=== PATIENT | female | born 1960 | race Caucasian/White ===

== ENCOUNTER 2017-05-29 08:26 | Observation (INO) | payer MEDICARE, BC ==
[2017-05-29 08:27] VITALS: BMI 31.2
[2017-05-29 09:06] LABS: EOS # 0.1 K/uL (0.0-0.7); EOS % 2.2 % (0.0-4.0); LYMPH # 0.6 K/uL (1.0-4.3)
--- NOTE | 2017-05-29 09:06 | RAD ---
PROCEDURE: Right Foot Radiographs. HISTORY: ? osteo of 1st metatarsal COMPARISON: None. FINDINGS: BONES: . No fracture. JOINTS: Diffuse proximal and distal interphalangeal joint space narrowing. Mild 1st metatarsal phalangeal joint space narrowing with tiny medial 1st metatarsal head subcortical cyst. No maury erosion. No cortical destruction or periosteal reaction seen. SOFT TISSUES: Medial soft tissue mild hyperdensity and trace swelling without subcutaneous emphysema or subcutaneous lucencies suggested. OTHER FINDINGS: Os tibial externum -9 mm IMPRESSION: No periosteal reaction or cortical disruption to suggest osteomyelitis. Mild medial soft tissue hyperdensity without subcutaneous emphysema or lucency- first metatarsal-phalangeal joint level.
[2017-05-29 09:11] LABS: BASO % 0.3 % (0.0-2.0); HEMATOCRIT 35.3 % (34.0-47.0); LYMPH % 18.7 % (20.0-40.0); MEAN CELL VOLUME 89.3 fL (81.0-99.0); MEAN CORPUSCULAR HEMOGLOBIN 31.1 pg (27.0-31.0); MEAN CORPUSCULAR HGB CONC 34.8 g/dL (33.0-37.0); MEAN PLATELET VOLUME 8.6 fL (7.2-11.7); MONO # 0.4 K/uL (0.0-0.8); MONO % 11.9 % (0.0-10.0); RED CELL DISTRIBUTION WIDTH 15.3 % (11.5-14.5); WHITE BLOOD COUNT 3.1 K/uL (4.8-10.8)
[2017-05-29 09:13] LABS: CHLORIDE 103 mmol/L (98-107); SODIUM 138 mmol/L (132-148)
[2017-05-29 09:14] LABS: POTASSIUM 3.9 mmol/L (3.6-5.2)
--- NOTE | 2017-05-29 09:14 | C.PDOC ---
History Of Present Illness 57 y/o female, with PMHx of diabetes, is sent to ED by PMD for evaluation of acute osteomyelitis to the right foot. Patient was seen by reporter who spoke with PMD to send pt to ER for further evaluation. Pt notes taking Augmentin with mild improvement. No fever. Time Seen by Provider: 05/29/17 08:40 Chief Complaint (Nursing): Lower Extremity Problem/Injury History Per: Patient History/Exam Limitations: no limitations Onset/Duration Of Symptoms: Days Current Symptoms Are (Timing): Still Present Recent travel outside of the [place]: No Additional History Per: Patient Past Medical History Reviewed: Historical Data, Nursing Documentation, Vital Signs Vital Signs: Last Vital Signs Temp 98.4 F 05/29/17 16:00 Pulse 75 05/29/17 16:00 Resp 20 05/29/17 16:00 BP 142/76 05/29/17 16:00 Pulse Ox 95 05/29/17 16:00 - Medical History PMH: Anxiety, Depression, Diabetes Surgical History: Cholecystectomy - [facility] Procedures FOOT JOINT STRUCT DIVIS (07/31/14) NONEXCIS DEBRID OF WOUND, INFECT, OR BURN (03/09/14) OPEN REDUCT-INT FIX TOE (07/31/14) REPAIR OF HAMMER TOE (07/31/14) Family History: States: Unknown Family Hx - Social History Hx Tobacco Use: No Hx Alcohol Use: No Hx Substance Use: No - Immunization History Hx Tetanus Toxoid Vaccination: No Hx Influenza Vaccination: No Hx Pneumococcal Vaccination: No Review Of Systems Except As Marked, All Systems Reviewed And Found Negative. Constitutional: Negative for: Fever, Chills Musculoskeletal: Positive for: Foot Pain (right) Neurological: Negative for: Weakness, Numbness Physical Exam - Physical Exam Appears: Non-toxic, No Acute Distress Skin: Normal Color, Warm, Dry, No Rash Head: Atraumatic, Normacephalic Extremity: Normal ROM, No Deformity, Other (right foot is bandaged, clean and dry) Pulses: Left Dorsalis Pedis: Normal, Right Dorsalis Pedis: Normal Neurological/Psych: Oriented x3, Normal Speech, Normal Motor, Normal Sensation ED Course And Treatment - Laboratory Results Result Diagrams: 05/29/17 09:01 05/29/17 09:01 O2 Sat by Pulse Oximetry: 95 (on RA) Pulse Ox Interpretation: Normal Medical Decision Making Medical Decision Making: Plan: Blood work, blood culture, right foot x-ray, right lower extremity joint MRI Disposition - Disposition Disposition: HOSPITALIZED Disposition Time: 12:20 Condition: STABLE - Clinical Impression Clinical Impression: Osteomyelitis - Scribe Statement The provider has reviewed the documentation as recorded by the Alysaibizabela Ha All medical record entries made by the Alysaibizabela were at my direction and personally dictated by me. I have reviewed the chart and agree that the record accurately reflects my personal performance of the history, physical exam, medical decision making, and the department course for this patient. I have also personally directed, reviewed, and agree with the discharge instructions and disposition.
[2017-05-29 09:16] LABS: ALB/GLOB RATIO 0.8 (1.0-2.1); ALKALINE PHOSPHATASE 135 U/L (38-126); AST/SGOT 61 U/L (14-36); BLOOD UREA NITROGEN 14 mg/dL (7-17); CARBON DIOXIDE 27 mmol/L (22-30); GFR AFRICAN-AMERICAN > 60; GLUCOSE,RANDOM 181 mg/dL (65-105); TOTAL PROTEIN 6.5 g/dL (6.3-8.3)
[2017-05-29 09:17] LABS: ALT/SGPT 47 U/L (9-52); CALCIUM 8.9 mg/dl (8.6-10.4)
--- NOTE | 2017-05-29 12:11 | MRI ---
PROCEDURE: MRI of the right foot without contrast. HISTORY: r/o osteomyolitis of right foot; f/u to xray today COMPARISON: Comparison is made to the x-ray of the right foot dated 05/29/2017. TECHNIQUE: Axial coronal and sagittal MRI images of the right foot were obtained without IV contrast administration. FINDINGS: There is small focal area of hyperintense bone marrow signal at the distal 1st metatarsal bone. No evidence of cortical erosion or destruction. Findings are nonspecific and may represent reactive bone marrow changes. Otherwise no evidence of abnormal bone marrow signal in the right foot. There is mild diffuse soft tissue increase signal seen at the 1st toe and adjacent to the 1st metatarsal bone suggestive of infection or inflammatory process. There is no evidence of discrete fluid collection. There is a skin ulcer/defect seen at the plantar and medial aspect of the distal right foot adjacent to the distal 1st metatarsal and bone and PICC 2. Mild diffuse edema is also noted more prominent at the volar aspect of the right foot. Mild increased fluid at the metatarsal phalangeal joints seen could be due to arthritic degenerative changes. IMPRESSION: Small focal of hyperintense signal at the distal 1st metatarsal bone without evidence of cortical erosion. Findings are nonspecific and may represent bone marrow reaction. The possibility of osteomyelitis is less likely. Heterogeneous hyperintense soft tissue signal may represent inflammatory process without evidence of abscess formation or fluid collection.
[2017-05-29] MEDS ORDERED: Vancomycin 1 GM 1 GM/250 ML BAG IVPB ONE (12:48)
[2017-05-29] MEDS: (Novolog) Insulin Aspart, Recombinant 100 u/ml 10 ml vial SC SCH ×2 (17:07→22:11)
[2017-05-29 18:00] VITALS: RESP 20
--- NOTE | 2017-05-29 18:35 | CP.PCM.CON ---
History of Present Illness - History of Present Illness History of Present Illness: 57 year old Diabetic female presented to my office yesterday after returning from [place] where she was treated as in patient for acute abscess right foot and osteomyelitis met 1 and she had MRI Report from hospital which stated "acute om of met 1 right ".New MRI taken this afternoon here at [facility] is less definitive . Past Patient History - Past Medical History & Family History Past Medical History?: Yes - Past Social History Smoking Status: Never Smoked - PULMONARY Hx Respiratory Disorders: No - NEUROLOGICAL Other/Comment: Hepatic Encephalopathy. Neuropathy - HEENT Hx Deafness: Yes - RENAL Hx Chronic Kidney Disease: No - ENDOCRINE/METABOLIC Hx Endocrine Disorders: Yes Hx Diabetes Mellitus Type 1: Yes - HEMATOLOGICAL/ONCOLOGICAL Hx Blood Disorders: Yes Hx Cirrhosis: Yes - INTEGUMENTARY Hx Dermatological Problems: No Other/Comment: chicken pox - MUSCULOSKELETAL/RHEUMATOLOGICAL Hx Musculoskeletal Disorders: No Hx Falls: No Hx Osteomyelitis: Yes (Right big toe) - GASTROINTESTINAL Other/Comment: hepatic encephalopathy - GENITOURINARY/GYNECOLOGICAL Hx Genitourinary Disorders: No - PSYCHIATRIC Hx Anxiety: Yes Hx Depression: Yes Hx Substance Use: No - SURGICAL HISTORY Hx Cholecystectomy: Yes - ANESTHESIA Hx Anesthesia: Yes Hx Anesthesia Reactions: No Hx Malignant Hyperthermia: No Meds Allergies/Adverse Reactions: Allergies Allergy/AdvReac Type Severity Reaction Status Date / Time seafood Allergy RASH Uncoded 05/29/17 08:41 - Medications Medications: Current Medications Escitalopram Oxalate (Lexapro) 10 mg PO DAILY [facility] Last Admin: 05/29/17 17:06 Dose: 10 mg Gabapentin (Neurontin) 100 mg PO DAILY [facility] Last Admin: 05/29/17 17:07 Dose: 100 mg Insulin Aspart (Novolog) 0 unit SC ACHS [facility] PRN Reason: Protocol Last Admin: 05/29/17 17:07 Dose: 4 unit Insulin Detemir (Levemir) 50 unit SC HS [facility] Insulin Human Isoph/Insulin Regular (Novolin 70/30 (70/30 Units/Ml) 10 Ml) 50 units SC TIDAC [facility] Rifaximin (Xifaxan) 550 mg PO BID [facility] Last Admin: 05/29/17 18:15 Dose: 550 mg Results - Vital Signs Recent Vital Signs: Last Vital Signs Temp 98.4 F 05/29/17 16:00 Pulse 75 05/29/17 16:00 Resp 20 05/29/17 16:00 BP 142/76 05/29/17 16:00 Pulse Ox 95 05/29/17 18:02 - Labs Result Diagrams: 05/29/17 09:01 05/29/17 09:01 Labs: Laboratory Results - last 24 hr 05/29/17 05/29/17 14:29 17:02 POC Glucose (mg/dL) 311 H 340 H
[2017-05-29] MEDS ORDERED: Insulin Detemir 100 units/ml Vial (Levemir) SC SCH (22:00)
--- NOTE | 2017-05-30 00:07 | CP.PCM.HP ---
History of Present Illness - History of Present Illness History of Present Illness: c: possible osteomyelitis of R 1st metatarsal HPI: I was called by Podiatry yesterday while pt was in his office relating that pt was admitted in [place] with a working diagnosis of osteomyelitis of the R foot. I had requested that ER MD confirm the diagnosis if indeed there is florid OM still as this will dictate approach to this problem. Xray did not show any OM or periosteal reaction, but the MRI, though no pathognomonic signs of OM, was read without as much certainty and left the possibility that the Clostridium bacteria may still be present. Will await ID and Podiatry consults to address the issue before making a decision on treatment for osteomyelitis. Present on Admission - Present on Admission Any Indicators Present on Admission: No History of DVT/PE: Yes History of Uncontrolled Diabetes: Yes Urinary Catheter: No Decubitus Ulcer Present: No Review of Systems - Review of Systems Review of Systems: no fevers, no chills - Constitutional Additional comments: no s/sx of sepsis Past Patient History - Past Medical History & Family History Past Medical History?: Yes - Past Social History Smoking Status: Never Smoked Chewing Tobacco Use: No Cigar Use: No Occupation: disabled Alcohol: None Drugs: Denies Home Situation {Lives}: With Family - PULMONARY Hx Respiratory Disorders: No - NEUROLOGICAL Other/Comment: Hepatic Encephalopathy. Neuropathy - HEENT Hx Deafness: Yes - RENAL Hx Chronic Kidney Disease: No - ENDOCRINE/METABOLIC Hx Endocrine Disorders: Yes Hx Diabetes Mellitus Type 1: Yes - HEMATOLOGICAL/ONCOLOGICAL Hx Blood Disorders: Yes Hx Cirrhosis: Yes - INTEGUMENTARY Hx Dermatological Problems: No Other/Comment: chicken pox - MUSCULOSKELETAL/RHEUMATOLOGICAL Hx Musculoskeletal Disorders: No Hx Falls: No Hx Osteomyelitis: Yes (Right big toe) - GASTROINTESTINAL Other/Comment: hepatic encephalopathy - GENITOURINARY/GYNECOLOGICAL Hx Genitourinary Disorders: No - PSYCHIATRIC Hx Anxiety: Yes Hx Depression: Yes Hx Substance Use: No - SURGICAL HISTORY Hx Cholecystectomy: Yes - ANESTHESIA Hx Anesthesia: Yes Hx Anesthesia Reactions: No Hx Malignant Hyperthermia: No Meds Allergies/Adverse Reactions: Allergies Allergy/AdvReac Type Severity Reaction Status Date / Time seafood Allergy RASH Uncoded 05/29/17 08:41 Physical Exam - Constitutional Appears: No Acute Distress - Head Exam Head Exam: ATRAUMATIC, NORMAL INSPECTION - Eye Exam Eye Exam: Normal appearance Pupil Exam: NORMAL ACCOMODATION - ENT Exam ENT Exam: Normal Exam - Neck Exam Neck exam: Positive for: Normal Inspection - Respiratory Exam Respiratory Exam: Clear to Auscultation Bilateral, NORMAL BREATHING PATTERN - Cardiovascular Exam Cardiovascular Exam: REGULAR RHYTHM - GI/Abdominal Exam GI & Abdominal Exam: Normal Bowel Sounds - Rectal Exam Rectal Exam: Deferred - Extremities Exam Extremities exam: Positive for: normal inspection - Back Exam Back exam: NORMAL INSPECTION - Neurological Exam Neurological exam: Alert, CN II-XII Intact, Normal Gait, Oriented x3, Reflexes Normal - Skin Skin Exam: Dry, Intact, Normal Color, Warm Results - Vital Signs Recent Vital Signs: Last Vital Signs Temp 98.4 F 05/29/17 16:00 Pulse 75 05/29/17 16:00 Resp 20 05/29/17 16:00 BP 142/76 05/29/17 16:00 Pulse Ox 95 05/29/17 18:02 - Labs Result Diagrams: 05/29/17 09:01 05/29/17 09:01 Labs: Laboratory Results - last 24 hr 05/29/17 05/29/17 05/29/17 14:29 17:02 21:51 POC Glucose (mg/dL) 311 H 340 H 314 H Assessment & Plan (1) Osteomyelitis Status: Acute (2) Foot ulcer Status: Acute (3) Thrombocytopenia Status: Acute (4) Peripheral vascular disease Status: Acute (5) Diabetes type 2, uncontrolled Status: Chronic Priority: High (6) 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 This is because of the severity of symptoms shown, intensity of services needed, and/or the medical risk in this patient being treated as an outpatient. - InPatient: Physician Admission Certification:: Pt will most probably need at least 2 night' s admission because of the complications inherent in osteomyelitis and the difficulty of treatment and getting a response. - . Bed Request Type: Regular
[2017-05-30 08:01] VITALS: TEMP 98.3
[2017-05-30] MEDS: (Novolog) Insulin Aspart, Recombinant 100 u/ml 10 ml vial SC SCH ×3 (08:20→17:17)
--- NOTE | 2017-05-30 09:12 | CP.PCM.PN ---
<Pako Handyah - Last Filed: 05/30/17 11:27> Subjective - Date & Time of Evaluation Date of Evaluation: 05/30/17 Time of Evaluation: 09:09 - Subjective Subjective: Progress note for Dr. Keen 57 year old female was seen at bedside this morning regarding right 1st metatarsal ulceration. Patient denies any pain. Denies n/v/f/c/sob/cp. Objective - Vital Signs/Intake and Output Vital Signs (last 24 hours): Temp Pulse Resp BP Pulse Ox 98.3 F 76 20 172/85 H 98 05/30/17 08:00 05/30/17 08:00 05/30/17 08:00 05/30/17 08:00 05/30/17 08:00 Intake and Output: 05/30/17 05/30/17 06:59 18:59 Intake Total 500 Balance 500 - Medications Medications: Current Medications Escitalopram Oxalate (Lexapro) 10 mg PO DAILY [facility] Last Admin: 05/29/17 17:06 Dose: 10 mg Gabapentin (Neurontin) 100 mg PO DAILY [facility] Last Admin: 05/29/17 17:07 Dose: 100 mg Insulin Aspart (Novolog) 0 unit SC ACHS [facility] PRN Reason: Protocol Last Admin: 05/30/17 08:20 Dose: Not Given Insulin Detemir (Levemir) 50 unit SC HS [facility] Last Admin: 05/29/17 22:13 Dose: 50 unit Insulin Human Isoph/Insulin Regular (Novolin 70/30 (70/30 Units/Ml) 10 Ml) 50 units SC TIDAC [facility] Rifaximin (Xifaxan) 550 mg PO BID [facility] Last Admin: 05/29/17 18:15 Dose: 550 mg - Constitutional Appears: Well, Non-toxic, No Acute Distress - Extremities Exam Additional comments: Right lower extremity focused exam: Vasc:DP and PT pulses 2/4. CFT < 3 seconds to all digits on the right. Neuro: Gross sensation diminished Ortho: No tenderness on palpation to right 1st metatarsal ulceration Derm: Open ulceration noted to the 1st metatarsal head plantarly measuring approximately 0.3 cm by 0.3 cm by superficial, no drainage, no purulence, no probe to bone noted. - Neurological Exam Neurological Exam: Alert, Awake, Oriented x3 - Psychiatric Exam Psychiatric exam: Normal Affect, Normal Mood Assessment and Plan - Assessment and Plan (Free Text) Assessment: 57 year old female with right 1st metatarsal head ulceration Plan: patient examined and evaluated discussed in detail with attending, Dr. Keen chart, labs, vitals reviewed MRI impressions:Small focal of hyperintense signal at the distal 1st metatarsal bone without evidence of cortical erosion. Findings are nonspecific and may represent bone marrow reaction. The possibility of osteomyelitis is less likely. Heterogeneous hyperintense soft tissue signal may represent inflammatory process without evidence of abscess formation or fluid collection. Right foot dressed with DSD patient stable for d/c from podiatry standpoint patient to f/u with Dr. Garcia in the wound care center upon d/c <Michael Keen - Last Filed: 05/30/17 18:35> Objective - Vital Signs/Intake and Output Vital Signs (last 24 hours): Temp Pulse Resp BP Pulse Ox 98.3 F 73 20 164/75 H 94 L 05/30/17 16:00 05/30/17 16:00 05/30/17 16:00 05/30/17 16:00 05/30/17 16:00 Intake and Output: 05/30/17 05/30/17 06:59 18:59 Intake Total 500 480 Balance 500 480 - Medications Medications: Current Medications Escitalopram Oxalate (Lexapro) 10 mg PO DAILY [facility] Last Admin: 05/30/17 18:05 Dose: 10 mg Gabapentin (Neurontin) 100 mg PO DAILY [facility] Last Admin: 05/30/17 18:06 Dose: 100 mg Insulin Aspart (Novolog) 0 unit SC ACHS [facility] PRN Reason: Protocol Last Admin: 05/30/17 17:17 Dose: 2 unit Insulin Detemir (Levemir) 50 unit SC HS [facility] Last Admin: 05/29/17 22:13 Dose: 50 unit Insulin Human Isoph/Insulin Regular (Novolin 70/30 (70/30 Units/Ml) 10 Ml) 50 units SC TIDAC [facility] Last Admin: 05/30/17 17:16 Dose: 50 units Rifaximin (Xifaxan) 550 mg PO BID [facility] Last Admin: 05/30/17 18:05 Dose: 550 mg Assessment and Plan - Assessment and Plan (Free Text) Plan: pt seen and examined at bedside .agree with findings above . Pt instructed to take PO antibiotics Change dressing daily WITH BACTROBAN /DRESSING AND USE SURGICAL SHOE RIGHT . LIGHT ACTIVITY SCHEDULE .FOLLOW UP AT MY OFFICE NEXT SUNDAY AT [address] HACKETT FOR MEDICAL MANAGEMENT .
[2017-05-30] MEDS ORDERED: (Novolin 70/30) NPH/Regular 70/30 Units/ml 10 ml vial SC SCH (16:51)
[2017-05-30 17:10] VITALS: BP 164/75; PULSE 73; O2SAT 94
--- NOTE | 2017-05-30 17:40 | CP.PCM.DIS ---
Provider - Provider Date of Admission: 05/29/17 12:26 Attending physician: Jeff Franz MD Primary care physician: Dr. Jeff Franz Consults: Podiatry: Dr. Michael Keen ID: Dr. 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0-40.0) L 05/29/17 09:01 [place] % (Auto) 11.9 % (0.0-10.0) H 05/29/17 09:01 Eos % (Auto) 2.2 % (0.0-4.0) 05/29/17 09:01 Baso % (Auto) 0.3 % (0.0-2.0) 05/29/17 09:01 Neut # 2.1 K/uL (1.8-7.0) 05/29/17 09:01 Lymph # 0.6 K/uL (1.0-4.3) L 05/29/17 09:01 [place] # 0.4 K/uL (0.0-0.8) 05/29/17 09:01 Eos # 0.1 K/uL (0.0-0.7) 05/29/17 09:01 Baso # 0.0 K/uL (0.0-0.2) 05/29/17 09:01 Differential Comment 05/29/17 09:01 ESR 40 mm/hr (0-20) H 05/30/17 07:07 Sodium 138 mmol/L (132-148) 05/29/17 09:01 Potassium 3.9 mmol/L (3.6-5.2) 05/29/17 09:01 Chloride 103 mmol/L (98-107) 05/29/17 09:01 Carbon Dioxide 27 mmol/L (22-30) 05/29/17 09:01 Anion Gap 13 (10-20) 05/29/17 09:01 BUN 14 mg/dL (7-17) 05/29/17 09:01 Creatinine 0.5 MG/DL (0.7-1.2) L 05/29/17 09:01 Est GFR ( Amer) > 60 05/29/17 09:01 Est GFR (Non-Af Amer) > 60 05/29/17 09:01 POC Glucose (mg/dL) 230 mg/dL (65-110) H 05/30/17 16:27 Random Glucose 181 mg/dL (65-105) H 05/29/17 09:01 Calcium 8.9 mg/dl (8.6-10.4) 05/29/17 09:01 Total Bilirubin 2.0 mg/dL (0.2-1.3) H 05/29/17 09:01 AST 61 U/L (14-36) H 05/29/17 09:01 ALT 47 U/L (9-52) 05/29/17 09:01 Alkaline Phosphatase 135 U/L (38-126) H D 05/29/17 09:01 Total Protein 6.5 g/dL (6.3-8.3) 05/29/17 09:01 Albumin 2.8 g/dL (3.5-5.0) L 05/29/17 09:01 Globulin 3.7 gm/dL (2.2-3.9) 05/29/17 09:01 Albumin/Globulin Ratio 0.8 (1.0-2.1) L 05/29/17 09:01 Alpha Fetoprotein 3.8 ng/mL (0.0-7.5) 05/30/17 07:07 Serum Ketones Negative (NEGATIVE) 05/30/17 07:07 Discharge Exam - Head Exam Head Exam: ATRAUMATIC, NORMAL INSPECTION - Eye Exam Eye Exam: Normal appearance Pupil Exam: NORMAL ACCOMODATION - ENT Exam ENT Exam: Normal Exam - Neck Exam Neck exam: Normal Inspection - Respiratory Exam Respiratory Exam: Rhonchi, UNREMARKABLE - Cardiovascular Exam Cardiovascular Exam: REGULAR RHYTHM - GI/Abdominal Exam GI & Abdominal Exam: Normal Bowel Sounds - Rectal Exam Rectal Exam: Deferred - Extremities Exam Extremities exam: normal inspection, pedal edema - Back Exam Back exam: NORMAL INSPECTION - Psychiatric Exam Psychiatric exam: Normal Affect, Normal Mood - Skin Skin Exam: Dry, Intact, Normal Color, Warm Discharge Plan - Follow Up Plan Condition: STABLE Disposition: HOME/ ROUTINE Patient education suggested?: No Instructions: Myelodysplastic Syndromes (DC), Myelodysplastic Syndromes (GEN) Additional Instructions: > follow up with Dr. Maged Franz next week before Sunday. Office will set up arrangement in the am when pt will come in > follow up with Podiatry as per their schedule Clinical Quality Measures - CQM - Stroke Antithrombotic Prescribed: Yes Anticoagulation Prescribed for Atrial Flutter, Atrial Fibrillation and History of:: Not Applicable Statin prescribed: Yes - CQM - VTE Did patient receive overlap therapy during hosptialization?: No (this was not reason for and the acute issue with this admission) If yes, what was given to the patient?: na Surgical Overlap Therapy Reason during Hospitalization: na Medical Reason for Overlap Therapy during Hospitalization: na Is patient being discharged on overlap therapy?: No If yes, what prescription has been given to the patient?: na If no, please select a reason why:: Risk of Bleeding Medical Reason for discharge Overlap Therapy: No - CQM - Heart Failure Ejection Fraction: 40 % or Greater QUINTON Inhibitor Prescribed: Yes Angiotensin II Receptor Bibi Prescribed: Yes
--- NOTE | 2017-05-30 18:41 | CP.PCM.PN ---
Subjective - Date & Time of Evaluation Date of Evaluation: 05/30/17 Time of Evaluation: 17:00 - Subjective Subjective: pT SEEN FOR FOLLOW UP CELLULITIS AND ULCER RIGHT GREAT TOE .MRI IS NEGATIVE FOR OM. Objective - Vital Signs/Intake and Output Vital Signs (last 24 hours): Temp Pulse Resp BP Pulse Ox 98.3 F 73 20 164/75 H 94 L 05/30/17 16:00 05/30/17 16:00 05/30/17 16:00 05/30/17 16:00 05/30/17 16:00 Intake and Output: 05/30/17 05/30/17 06:59 18:59 Intake Total 500 480 Balance 500 480 - Medications Medications: Current Medications Escitalopram Oxalate (Lexapro) 10 mg PO DAILY [facility] Last Admin: 05/30/17 18:05 Dose: 10 mg Gabapentin (Neurontin) 100 mg PO DAILY [facility] Last Admin: 05/30/17 18:06 Dose: 100 mg Insulin Aspart (Novolog) 0 unit SC ACHS [facility] PRN Reason: Protocol Last Admin: 05/30/17 17:17 Dose: 2 unit Insulin Detemir (Levemir) 50 unit SC HS [facility] Last Admin: 05/29/17 22:13 Dose: 50 unit Insulin Human Isoph/Insulin Regular (Novolin 70/30 (70/30 Units/Ml) 10 Ml) 50 units SC TIDAC [facility] Last Admin: 05/30/17 17:16 Dose: 50 units Rifaximin (Xifaxan) 550 mg PO BID [facility] Last Admin: 05/30/17 18:05 Dose: 550 mg - Extremities Exam Extremities Exam: Pedal Edema Additional comments: O/ULCER SMALL SUB MET 1.CELLULITIS HALLUX RESOLVING WELL.VASCULAR STATUS INTACT B/L MRI NEGATIVE. SEVERE DM NEUROPATHY .REFER TO PODIATRY RESIDENT NOTE FOR COMPLETE DAILY FINDINGS. Assessment and Plan - Assessment and Plan (Free Text) Assessment: A/ULCER SUB MET 1 WITH RESOLVING INFECTION RIGHT. Plan: P/PT TO BE D/C WITH PO ANTIBIOTICS AND LOCAL WOUND CARE AND FOLLOW UP 1 WK.
--- NOTE | 2017-05-30 19:24 | CP.PCM.CON ---
History of Present Illness - History of Present Illness History of Present Illness: 57 year old Diabetic female presented to my office yesterday after returning from [place] where she was treated as in patient for acute abscess right foot and osteomyelitis met 1 and she had MRI Report from hospital which stated "acute om of met 1 right ".New MRI taken this afternoon here at [facility] is less definitive . Review of Systems - Constitutional Constitutional: As Per HPI - EENT Eyes: absent: As Per HPI, Blind Spots, Blurred Vision, Change in Vision, Decreased Night Vision, Diplopia, Discharge, Dry Eye, Exophthalmos, Floaters, Irritation, Itchy Eyes, Loss of Peripheral Vision, Pain, Photophobia, Requires Corrective Lenses, Sees Flashes, Spots in Vision, Tunnel Vision, Other Visual Disturbances, Loss of Vision, Other Ears: absent: As Per HPI, Decreased Hearing, Ear Discharge, Ear Pain, Tinnitus, Abnormal Hearing, Disequilibrium, Dizziness, Other - Cardiovascular Cardiovascular: absent: As Per HPI, Acrocyanosis, Chest Pain, Chest Pain at Rest , Chest Pain with Activity, Claudication, Diaphoresis, Dyspnea, Dyspnea on Exertion, Edema, Irregular Heart Rhythm, Pain Radiating to Arm/Neck/Jaw, Leg Edema, Leg Ulcers, Lightheadedness, Orthopnea, Palpitations, Paroxysmal Nocturnal Dyspnea, Pedal Edema, Radiating Pain, Rapid Heart Rate, Slow Heart Rate, Syncope, Other - Respiratory Respiratory: absent: As Per HPI, Cough, Dyspnea, Hemoptysis, Dyspnea on Exertion , Wheezing, Snoring, Stridor, Pain on Inspiration, Chest Congestion, Excessive Mucous Production, Change in Mucous Color, Pain with Coughing, Other - Gastrointestinal Gastrointestinal: As Per HPI - Reproductive: Female Reproductive:Female: absent: As Per HPI, Amenorrhea, Amenorrhea/ Control, Currently Menstual, Cycle <21 Days, Cycle >35 Days, Cycle Variable, Menses 1-7 Days, Menses >/= 8 Days, Menses Variable, Cycle > 4 Weeks Between, No Menses for 6 Months, Heavy Menses, Light Menses, Normal Menses, Spotting Between Cycles , S/P Hysterectomy, Menopausal, Post Menopausal, Premenarche, Abnormal Vaginal Bleeding, Dysmenorrhea, Dyspareunia, Genital Lesions, Genital Pruritis, Pelvic Pain, Prolapse Symptoms, Sexual Dysfunction, Vaginal Discharge, Vaginal Dryness , Vaginal Odor, Vaginal Pruritis, Other - Menstruation Menstruation: absent: As Per HPI, Amenorrhea, Amenorrhea/ Control, Currently Menstual, Cycle <21 Days, Cycle >35 Days, Cycle Variable, Menses 1-7 Days, Menses >/= 8 Days, Menses Variable, Cycle > 4 Weeks Between, No Menses for 6 Months, Heavy Menses, Light Menses, Normal Menses, Spotting Between Cycles , S/P Hysterectomy, Menopausal, Post Menopausal, Premenarche, Abnormal Vaginal Bleeding, Dysmenorrhea, Other - Neurological Neurological: As Per HPI - Psychiatric Psychiatric: absent: As Per HPI, Abnormal Sleep Pattern, Anhedonia, Anxiety, Auditory Hallucinations, Behavioral Changes, Change in Appetite, Change in Libido, Confusion, Depression, Difficulty Concentrating, Hallucinations, Homicidal Ideation, Hopelessness, Irritability, Memory Loss, Mood Swings, Panic Attacks, Paranoia, Suicidal Ideation, Visual Hallucinations, Tactile Hallucinations, Other - Endocrine Endocrine: absent: As Per HPI, Change in Body Appearance, Change in Libido, Cold Intolorance, Deepening of Voice, Excessive Sweating, Fatigue, Flushing, Heat Intolorance, Increase in Ring/Shoe/Hat Size, Palpitations, Polydipsia, Polyphagia, Polyuria, Other Past Patient History - Past Medical History & Family History Past Medical History?: Yes - Past Social History Smoking Status: Never Smoked Chewing Tobacco Use: No Cigar Use: No Occupation: disabled Alcohol: None Drugs: Denies Home Situation {Lives}: With Family - PULMONARY Hx Respiratory Disorders: No - NEUROLOGICAL Other/Comment: Hepatic Encephalopathy. Neuropathy - HEENT Hx Deafness: Yes - RENAL Hx Chronic Kidney Disease: No - ENDOCRINE/METABOLIC Hx Endocrine Disorders: Yes Hx Diabetes Mellitus Type 1: Yes - HEMATOLOGICAL/ONCOLOGICAL Hx Blood Disorders: Yes Hx Cirrhosis: Yes - INTEGUMENTARY Hx Dermatological Problems: No Other/Comment: chicken pox - MUSCULOSKELETAL/RHEUMATOLOGICAL Hx Musculoskeletal Disorders: No Hx Falls: No Hx Osteomyelitis: Yes (Right big toe) - GASTROINTESTINAL Other/Comment: hepatic encephalopathy - GENITOURINARY/GYNECOLOGICAL Hx Genitourinary Disorders: No - PSYCHIATRIC Hx Anxiety: Yes Hx Depression: Yes Hx Substance Use: No - SURGICAL HISTORY Hx Cholecystectomy: Yes - ANESTHESIA Hx Anesthesia: Yes Hx Anesthesia Reactions: No Hx Malignant Hyperthermia: No Meds Allergies/Adverse Reactions: Allergies Allergy/AdvReac Type Severity Reaction Status Date / Time seafood Allergy RASH Uncoded 05/29/17 08:41 - Medications Medications: Current Medications Escitalopram Oxalate (Lexapro) 10 mg PO DAILY [facility] Last Admin: 05/30/17 18:05 Dose: 10 mg Gabapentin (Neurontin) 100 mg PO DAILY [facility] Last Admin: 05/30/17 18:06 Dose: 100 mg Insulin Aspart (Novolog) 0 unit SC ACHS [facility] PRN Reason: Protocol Last Admin: 05/30/17 17:17 Dose: 2 unit Insulin Detemir (Levemir) 50 unit SC HS [facility] Last Admin: 05/29/17 22:13 Dose: 50 unit Insulin Human Isoph/Insulin Regular (Novolin 70/30 (70/30 Units/Ml) 10 Ml) 50 units SC TIDAC [facility] Last Admin: 05/30/17 17:16 Dose: 50 units Rifaximin (Xifaxan) 550 mg PO BID [facility] Last Admin: 05/30/17 18:05 Dose: 550 mg Physical Exam - Constitutional Appears: Non-toxic, Chronically Ill - Head Exam Head Exam: NORMOCEPHALIC - Eye Exam Eye Exam: PERRL - ENT Exam ENT Exam: Mucous Membranes Dry - Respiratory Exam Respiratory Exam: Decreased Breath Sounds - Cardiovascular Exam Cardiovascular Exam: REGULAR RHYTHM - GI/Abdominal Exam GI & Abdominal Exam: Diminished Bowel Sounds - Rectal Exam Rectal Exam: Deferred - Exam Exam: NORMAL INSPECTION - Extremities Exam Extremities exam: Positive for: pedal edema, tenderness - Back Exam Back exam: absent: CVA tenderness (L), CVA tenderness (R) - Neurological Exam Neurological exam: Alert, CN II-XII Intact, Oriented x3, Reflexes Normal - Psychiatric Exam Psychiatric exam: Normal Mood - Skin Skin Exam: Dry Results - Vital Signs Recent Vital Signs: Last Vital Signs Temp 98.3 F 05/30/17 16:00 Pulse 73 05/30/17 16:00 Resp 20 05/30/17 16:00 BP 164/75 H 05/30/17 16:00 Pulse Ox 94 L 05/30/17 16:00 - Labs Result Diagrams: 05/29/17 09:01 05/29/17 09:01 Labs: Laboratory Results - last 24 hr 05/29/17 05/30/17 05/30/17 21:51 07:07 07:07 ESR 40 H POC Glucose (mg/dL) 314 H Alpha Fetoprotein Serum Ketones Negative 05/30/17 05/30/17 05/30/17 07:07 07:07 11:20 ESR POC Glucose (mg/dL) 133 H 163 H Alpha Fetoprotein 3.8 Serum Ketones 05/30/17 16:27 ESR POC Glucose (mg/dL) 230 H Alpha Fetoprotein Serum Ketones Assessment & Plan (1) Foot ulcer Status: Chronic (2) Peripheral vascular disease Status: Chronic (3) Thrombocytopenia Status: Chronic (4) Cellulitis Status: Acute Priority: High Onset Date: 03/09/14 (5) Ulcer Status: Acute (6) Diabetes type 2, uncontrolled Status: Chronic Priority: High
== END 2017-05-30 19:15 | disposition home or self-care (01) ==
LOC: C.ER 08:26 → INTOOBSV 12:26 → C.9E 12:26 → C.3T 14:01
PROVIDERS: ADMIT Family Medicine; ATTEND Family Medicine
DX: L03.031 Cellulitis of right toe (principal); L97.519 Non-pressure chronic ulcer of other part of right foot with unspecified severity; K74.60 Unspecified cirrhosis of liver; I73.9 Peripheral vascular disease, unspecified; D69.6 Thrombocytopenia, unspecified; E11.65 Type 2 diabetes mellitus with hyperglycemia; K75.81 Nonalcoholic steatohepatitis (NASH)
CPT/HCPCS: 36415; 73620; 73721; 80053; 82009; 82105; 82948; 85025; 85651; 87040; 87081; 96365; 96366; 99284; G0378; J7050

== ENCOUNTER 2017-06-26 18:29 | Inpatient (IN) | payer MEDICARE, BC ==
[2017-06-26 18:30] VITALS: BMI 31.2
--- NOTE | 2017-06-26 19:42 | C.PDOC ---
History Of Present Illness Patient presents to the ED with complaints of right foot pain for several weeks. Patient notes abscess to the base of the right great toe. Also experiencing shortness of breath. Patient is tolerating PO and speaking in complete sentences. Denies fever, chills, nausea, vomiting, or chest pain. Time Seen by Provider: 06/26/17 19:41 Chief Complaint (Nursing): Abnormal Skin Integrity History Per: Patient History/Exam Limitations: no limitations Onset/Duration Of Symptoms: Persistent Current Symptoms Are (Timing): Still Present Severity: Mild Pain Scale Rating Of: 4 Recent travel outside of the [place]: No Past Medical History Reviewed: Historical Data, Nursing Documentation, Vital Signs Vital Signs: Last Vital Signs Temp 98.5 F 06/26/17 18:42 Pulse 81 06/26/17 21:56 Resp 18 06/26/17 21:56 BP 165/75 H 06/26/17 18:42 Pulse Ox 97 06/26/17 21:56 - Medical History PMH: Anxiety, Depression, Diabetes Surgical History: Cholecystectomy - [facility] Procedures FOOT JOINT STRUCT DIVIS (07/31/14) NONEXCIS DEBRID OF WOUND, INFECT, OR BURN (03/09/14) OPEN REDUCT-INT FIX TOE (07/31/14) REPAIR OF HAMMER TOE (07/31/14) Family History: States: Unknown Family Hx - Social History Hx Tobacco Use: No Hx Alcohol Use: No Hx Substance Use: No - Immunization History Hx Tetanus Toxoid Vaccination: No Hx Influenza Vaccination: No Hx Pneumococcal Vaccination: No Review Of Systems Constitutional: Negative for: Fever, Chills Cardiovascular: Negative for: Chest Pain, Palpitations Respiratory: Positive for: Shortness of Breath. Negative for: Cough Gastrointestinal: Negative for: Nausea, Vomiting, Abdominal Pain Genitourinary: Negative for: Dysuria Musculoskeletal: Positive for: Foot Pain (right foot pain) Skin: Positive for: Rash, Other (abscess to right foot ) Neurological: Negative for: Weakness, Numbness Psych: Positive for: Anxiety Physical Exam - Physical Exam Appears: Non-toxic, No Acute Distress Skin: Warm, Dry, Other (1 cm x 2 cm abscess with fluctuance to the ventral aspect of the base of the right great toe. 1.5 cm skin tear to right foot ventrasl aspect. ) Head: Atraumatic Eye(s): bilateral: Normal Inspection Oral Mucosa: Moist Neck: Supple Chest: Symmetrical, No Deformity Cardiovascular: Rhythm Regular, No Murmur Respiratory: No Rales, No Rhonchi, No Wheezing, Other (clear to auscultation ) Gastrointestinal/Abdominal: Bowel Sounds (good bowel sounds ), Soft, No Tenderness, No Distention, No Guarding, No Rebound Back: No CVA Tenderness Extremity: Tenderness, Pedal Edema, Capillary Refill (<2 sec), No Deformity Extremity: Right: [place] Tenderness (great toe, abscess ), Unable To Bear Weight Pulses: Left Dorsalis Pedis: Normal, Right Dorsalis Pedis: Normal Neurological/Psych: Oriented x3, Normal Speech, Normal Cognition Gait: With Assistance ED Course And Treatment - Laboratory Results Result Diagrams: 06/26/17 20:22 06/26/17 20:22 ECG: Interpreted By Me, Viewed By Me ECG Rhythm: Sinus Rhythm (83), R BBB O2 Sat by Pulse Oximetry: 93 (room air ) Pulse Ox Interpretation: Abnormal - Radiology CXR: Interpreted by Me, Viewed By Me CXR Interpretation: No: Infiltrates, Fracture, Pnemothorax Progress Note: Labs were ordered. Disposition Discussed With : Cathleen Franz-Stacy Comment: accepted the pt on his service and tookm over the care at 10:23 PM Doctor Will See Patient In The: Hospital Counseled Patient/Family Regarding: Studies Performed, Diagnosis - Disposition Disposition: HOSPITALIZED Disposition Time: 19:42 Condition: FAIR Forms: [facility] (Malagasy) - Clinical Impression Clinical Impression: Cellulitis, Diabetes type 2, uncontrolled, Foot abscess, right - Scribe Statement The provider has reviewed the documentation as recorded by the Scribizabela Zayas All medical record entries made by the Alysaibizabela were at my direction and personally dictated by me. I have reviewed the chart and agree that the record accurately reflects my personal performance of the history, physical exam, medical decision making, and the department course for this patient. I have also personally directed, reviewed, and agree with the discharge instructions and disposition. Decision To Admit - Pt Status Changed To: Hospital Disposition Of: Inpatient - Admit Certification Admit to Inpatient:: After my assessment, the patient will require hospitalization for at least two midnights. This is because of the severity of symptoms shown, intensity of services needed, and/or the medical risk in this patient being treated as an outpatient. - InPatient: Physician Admission Certification: I certify that this patient requires 2 or more midnights of care for the following reason:: After my assessment, the patient will require hospitalization for at least two midnights. This is because of the severity of symptoms shown, intensity of services needed, and/or the medical risk in this patient being treated as an outpatient. - . Bed Request Type: Regular Admitting Physician: Cathleen Herbert Patient Diagnosis: Cellulitis, Diabetes type 2, uncontrolled, Foot abscess, right
[2017-06-26 20:28] LABS: BASO % 0.2 % (0.0-2.0); EOS # 0.1 K/uL (0.0-0.7); EOS % 2.1 % (0.0-4.0); HEMATOCRIT 33.6 % (34.0-47.0); LYMPH # 0.8 K/uL (1.0-4.3); LYMPH % 19.5 % (20.0-40.0); MEAN CELL VOLUME 91.1 fL (81.0-99.0); MEAN CORPUSCULAR HEMOGLOBIN 31.9 pg (27.0-31.0); MEAN PLATELET VOLUME 9.3 fL (7.2-11.7); MONO # 0.4 K/uL (0.0-0.8); MONO % 10.6 % (0.0-10.0); NRBC % 0.1 % (0.0-2.0); RED CELL DISTRIBUTION WIDTH 15.4 % (11.5-14.5); WHITE BLOOD COUNT 3.8 K/uL (4.8-10.8)
[2017-06-26 20:33] LABS: INR 1.2
[2017-06-26 20:36] LABS: CHLORIDE 105 mmol/L (98-107)
[2017-06-26 20:37] LABS: POTASSIUM 4.2 mmol/L (3.6-5.2); SODIUM 138 mmol/L (132-148)
[2017-06-26 20:39] LABS: GFR AFRICAN-AMERICAN > 60
[2017-06-26 20:40] LABS: ALB/GLOB RATIO 0.9 (1.0-2.1); ALKALINE PHOSPHATASE 114 U/L (38-126); ALT/SGPT 39 U/L (9-52); AST/SGOT 54 U/L (14-36); BILIRUBIN,TOTAL 1.5 mg/dL (0.2-1.3); BLOOD UREA NITROGEN 15 mg/dL (7-17); CALCIUM 8.6 mg/dl (8.6-10.4); CARBON DIOXIDE 24 mmol/L (22-30); GLUCOSE,RANDOM 255 mg/dL (65-105); TOTAL PROTEIN 6.1 g/dL (6.3-8.3)
[2017-06-26 20:53] LABS: DRAW SITE RRA
[2017-06-26 21:10] LABS: RBC URINE 17 /hpf (0-3); URINE BACTERIA OCC (<OCC); URINE BILIRUBIN NEGATIVE (NEGATIVE); URINE BLOOD 3+ (NEGATIVE); URINE COLOR Yellow (YELLOW); URINE GLUCOSE (UA) 3+ mg/dL (Normal); URINE KETONE NEGATIVE (NEGATIVE); URINE LEUKOCYTE ESTERASE NEG Leu/uL (Negative); URINE PROTEIN 2+ mg/dL (NEGATIVE); WBC URINE 7 /hpf (0-5)
--- NOTE | 2017-06-26 22:40 | CP.PCM.CON ---
History of Present Illness - History of Present Illness History of Present Illness: 57 year old female with PMH of DM seen in the ED for right foot abscess and right foot plantar deroofed hematoma. Patient states that she has had the ulceration to the right [place] She is known to Dr. Keen and has been seeing him almost weekly for wound care. She states that saw him today and was advised her to go to the ED. She has had swelling and noticed drainage, pus per patient, for the past 2 weeks. She also reports odor from the wound. Today she states the wound has closed up and the outside has gotten callused over. She denies n/v/cp/chills or f. She reports SOB at the time of visit. Past Patient History - Past Medical History & Family History Past Medical History?: Yes - Past Social History Smoking Status: Never Smoked - PULMONARY Hx Respiratory Disorders: No - NEUROLOGICAL Other/Comment: Hepatic Encephalopathy. Neuropathy - HEENT Hx Deafness: Yes - RENAL Hx Chronic Kidney Disease: No - ENDOCRINE/METABOLIC Hx Endocrine Disorders: Yes Hx Diabetes Mellitus Type 1: Yes - HEMATOLOGICAL/ONCOLOGICAL Hx Blood Disorders: Yes Hx Cirrhosis: Yes - INTEGUMENTARY Hx Dermatological Problems: No Other/Comment: chicken pox - MUSCULOSKELETAL/RHEUMATOLOGICAL Hx Musculoskeletal Disorders: No Hx Falls: No Hx Osteomyelitis: Yes (Right big toe) - GASTROINTESTINAL Other/Comment: hepatic encephalopathy - GENITOURINARY/GYNECOLOGICAL Hx Genitourinary Disorders: No - PSYCHIATRIC Hx Anxiety: Yes Hx Depression: Yes Hx Substance Use: No - SURGICAL HISTORY Hx Cholecystectomy: Yes - ANESTHESIA Hx Anesthesia: Yes Hx Anesthesia Reactions: No Hx Malignant Hyperthermia: No Meds Allergies/Adverse Reactions: Allergies Allergy/AdvReac Type Severity Reaction Status Date / Time seafood Allergy RASH Uncoded 06/26/17 18:42 Physical Exam - Constitutional Appears: Well, Non-toxic, No Acute Distress - Extremities Exam Additional comments: Vasc: DP and PT 2/4 bilaterally, CFT <3 seconds x10 digits, temperature gradient WNL, digit hair present Ortho: MM is 5/5 in all dorsiflexion, plantarflexion, inversion, and eversion, mild pain on palpation of right sub met 1 Neuro: gross sensation slightly diminished Derm: Hyperkeratotic lesion measuring approximately 2.5 x 2 noted to the 1st sub metatarsal with mild fluctuance noted. less than .5 cc of serosangious drainage expressed. Deroofed hematoma noted to the plantar medial arch measuring approximately 1 x 1.5 x .1 with granular base noted. - Neurological Exam Neurological exam: Alert, Oriented x3 - Psychiatric Exam Psychiatric exam: Normal Affect, Normal Mood Results - Vital Signs Recent Vital Signs: Last Vital Signs Temp 98.5 F 06/26/17 18:42 Pulse 81 06/26/17 21:56 Resp 18 06/26/17 21:56 BP 165/75 H 06/26/17 18:42 Pulse Ox 93 L 06/26/17 22:27 - Labs Result Diagrams: 06/26/17 20:22 06/26/17 20:22 Labs: Laboratory Results - last 24 hr 06/26/17 06/26/17 06/26/17 20:15 20:22 20:22 WBC 3.8 L RBC 3.68 L Hgb 11.7 Hct 33.6 L MCV 91.1 MCH 31.9 H MCHC 35.0 RDW 15.4 H Plt Count 66 L MPV 9.3 Neut % (Auto) 67.6 Lymph % (Auto) 19.5 L [place] % (Auto) 10.6 H Eos % (Auto) 2.1 Baso % (Auto) 0.2 Neut # 2.6 Lymph # 0.8 L [place] # 0.4 Eos # 0.1 Baso # 0.0 Differential Comment PT 13.4 H INR 1.2 Puncture Site pCO2 pO2 HCO3 ABG pH ABG Total CO2 ABG O2 Saturation ABG Base Excess James Test ABG Potassium A-a O2 Difference Respiratory Index Glucose Lactate FiO2 Sodium Potassium Chloride Carbon Dioxide Anion Gap BUN Creatinine Est GFR ( Amer) Est GFR (Non-Af Amer) POC Glucose (mg/dL) 311 H Random Glucose Calcium Total Bilirubin AST ALT Alkaline Phosphatase NT-Pro-B Natriuret Pep Total Protein Albumin Globulin Albumin/Globulin Ratio Lipase Arterial Blood Potassium Urine Color Urine Clarity Urine pH Ur Specific [place] Urine Protein Urine Glucose (UA) Urine Ketones Urine Blood Urine Nitrate Urine Bilirubin Urine Urobilinogen Ur Leukocyte Esterase Urine WBC (Auto) Urine RBC (Auto) Ur Squamous Epith Cells Urine Bacteria Serum Ketones 06/26/17 06/26/17 06/26/17 20:22 20:41 20:50 WBC RBC Hgb Hct MCV MCH MCHC RDW Plt Count MPV Neut % (Auto) Lymph % (Auto) [place] % (Auto) Eos % (Auto) Baso % (Auto) Neut # Lymph # [place] # Eos # Baso # Differential Comment PT INR Puncture Site Rra pCO2 32 L pO2 79 L HCO3 27.3 ABG pH 7.51 H ABG Total CO2 26.5 ABG O2 Saturation 98.9 H ABG Base Excess 3.0 James Test Na ABG Potassium 3.8 A-a O2 Difference 31.0 Respiratory Index 0.4 Glucose 275 H Lactate 1.6 FiO2 21.0 Sodium 138 135.0 Potassium 4.2 Chloride 105 110.0 H Carbon Dioxide 24 Anion Gap 13 BUN 15 Creatinine 0.6 L Est GFR ( Amer) > 60 Est GFR (Non-Af Amer) > 60 POC Glucose (mg/dL) Random Glucose 255 H Calcium 8.6 Total Bilirubin 1.5 H AST 54 H ALT 39 Alkaline Phosphatase 114 NT-Pro-B Natriuret Pep 280 Total Protein 6.1 L Albumin 2.9 L Globulin 3.2 Albumin/Globulin Ratio 0.9 L Lipase 99 Arterial Blood Potassium 3.8 Urine Color Yellow Urine Clarity Clear Urine pH 6.0 Ur Specific [place] 1.017 Urine Protein 2+ H Urine Glucose (UA) 3+ H Urine Ketones Negative Urine Blood 3+ H Urine Nitrate Negative Urine Bilirubin Negative Urine Urobilinogen 4.0 H Ur Leukocyte Esterase Neg Urine WBC (Auto) 7 H Urine RBC (Auto) 17 H Ur Squamous Epith Cells 3 Urine Bacteria Occ H Serum Ketones Negative Assessment & Plan - Assessment and Plan (Free Text) Assessment: 57 y.o female with PMH of DM presents to the ED for abscess of right sub met 1 callus and deroofed plantar arch blister. Plan: Patient was seen in the ED Discussed plan in detail with attending Dr. Leonila Benson, labs, charts reviewed (WBC=3.8, afebrile) Right sub met 1 was incised using a blade #10 to all nonviable tissue and ulceration was drained. Approximately .5 cc of serosangious drainage noted at this time. Wound culture ordered- pending results Dressed with saline w2d dressing Ordered Bactroban to be changed with dressing changed once on floors X-rays ordered- no gas emphysema noted, no cortical destructed noted, no OM noted in the x-ray -read by me Will order MRI once on floors Will continue to follow on floors Thank you for the consult
[2017-06-26] MEDS ORDERED: HYDROmorphone 1 mg/ml ISec IVP PRN (23:00)
[2017-06-27 01:19] VITALS: RESP 20
--- NOTE | 2017-06-27 08:18 | CP.PCM.PN ---
<Michael Keen - Last Filed: 06/27/17 08:11> Subjective - Date & Time of Evaluation Date of Evaluation: 06/27/17 Time of Evaluation: 08:11 - Subjective Subjective: 57 very pleasant Female who was hospitalized 1 month ago after returning from [place] where she was an in patient for abscess of same area . Pt was discharged from [facility] with rec. of total Contact casting which she declined and pt was seen in office however she had missed several appts and called yesterday to be seen on emergency basis and sent for admission after evaluation. Objective - Vital Signs/Intake and Output Vital Signs (last 24 hours): Temp Pulse Resp BP Pulse Ox 97.6 F 74 20 156/70 H 96 06/27/17 07:42 06/27/17 07:42 06/27/17 07:42 06/27/17 07:42 06/27/17 07:42 Intake and Output: 06/27/17 06/27/17 06:59 18:59 Intake Total 240 Balance 240 - Medications Medications: Current Medications Albuterol Sulfate (Albuterol 0.083% Inhal Lisa (2.5 Mg/3 Ml) Ud) 2.5 mg INH RQ6 PRN PRN Reason: Shortness of Breath Aspirin (Aspirin) 81 mg PO DAILY [facility] Escitalopram Oxalate (Lexapro) 10 mg PO DAILY [facility] Gabapentin (Neurontin) 300 mg PO TID PRN PRN Reason: Pain, moderate (4-7) Home Med (Insulin Glargine,Hum.Rec.Anlog [Toujeo Solostar]) 70 unit SQ HS [facility] Home Med (Insulin Aspar/Insulin N 70/30 [Novolog Mix 70/30-U/Ml 3ml]) 50 unit SC TID [facility] Hydromorphone HCl (Dilaudid) 1 mg IVP Q4H PRN PRN Reason: Pain, moderate (4-7) Insulin Detemir (Levemir) 60 unit SC HS [facility] Insulin Glargine (Lantus) 50 unit SC HS [facility] Losartan Potassium (Cozaar) 50 mg PO DAILY [facility] Mupirocin (Bactroban Ointment) 0 gm TOP BID [facility] Rifaximin (Xifaxan) 550 mg PO BID [facility] Rosuvastatin Calcium (Crestor) 5 mg PO HS [facility] - Labs Labs: 06/26/17 20:22 06/26/17 20:22 PT 13.4 SECONDS (9.7-12.2) H 06/26/17 20:22 INR 1.2 06/26/17 20:22 <Catrachita Hardwick - Last Filed: 06/27/17 19:03> Objective - Vital Signs/Intake and Output Vital Signs (last 24 hours): Temp Pulse Resp BP Pulse Ox 98.5 F 72 20 149/68 99 06/27/17 15:00 06/27/17 15:00 06/27/17 15:00 06/27/17 15:00 06/27/17 15:00 Intake and Output: 06/27/17 06/27/17 06:59 18:59 Intake Total 240 350 Balance 240 350 - Medications Medications: Current Medications Albuterol Sulfate (Albuterol 0.083% Inhal Lisa (2.5 Mg/3 Ml) Ud) 2.5 mg INH RQ6 PRN PRN Reason: Shortness of Breath Last Admin: 06/27/17 17:39 Dose: 2.5 mg Aspirin (Aspirin Chewable) 81 mg PO DAILY [facility] Escitalopram Oxalate (Lexapro) 10 mg PO DAILY [facility] Last Admin: 06/27/17 10:06 Dose: 10 mg Gabapentin (Neurontin) 300 mg PO BID [facility] Last Admin: 06/27/17 17:24 Dose: 300 mg Hydromorphone HCl (Dilaudid) 1 mg IVP Q4H PRN PRN Reason: Pain, moderate (4-7) Piperacillin Sod/Tazobactam (Sod 3.375 gm/ Sodium Chloride) 100 mls @ 200 mls/ hr IVPB Q8H [facility] Last Admin: 06/27/17 15:22 Dose: 200 mls/hr Vancomycin/Sodium Chloride (Vancocin) 1 gm in 200 mls @ 133.333 mls/hr IVPB Q24H [facility] Last Admin: 06/27/17 16:00 Dose: 133.333 mls/hr Insulin Detemir (Levemir) 60 unit SC HS [facility] Insulin Human Regular (Novolin R) 0 unit SC ACHS [facility] PRN Reason: Protocol Last Admin: 06/27/17 17:24 Dose: 1 unit Losartan Potassium (Cozaar) 50 mg PO DAILY [facility] Last Admin: 06/27/17 10:06 Dose: 50 mg Mupirocin (Bactroban Ointment) 0 gm TOP BID [facility] Last Admin: 06/27/17 10:04 Dose: Not Given Rifaximin (Xifaxan) 550 mg PO BID [facility] Last Admin: 06/27/17 17:24 Dose: 550 mg Rosuvastatin Calcium (Crestor) 5 mg PO HS [facility] - Labs Labs: 06/26/17 20:22 06/26/17 20:22 PT 13.4 SECONDS (9.7-12.2) H 06/26/17 20:22 INR 1.2 06/26/17 20:22 - Extremities Exam Additional comments: Vasc: DP and PT 2/4 bilaterally, CFT <3 seconds x10 digits, temperature gradient WNL, digit hair present Neuro: gross sensation slightly diminished Derm: Hyperkeratotic lesion measuring approximately 2.5 x 2 noted to the 1st sub metatarsal with mild fluctuance noted. less than .5 cc of serosangious drainage expressed. Deroofed hematoma noted to the plantar medial arch measuring approximately 1 x 1.5 x .1 with granular base noted. Ortho: MM is 5/5 in all dorsiflexion, plantarflexion, inversion, and eversion, mild pain on palpation of right sub met 1 Assessment and Plan - Assessment and Plan (Free Text) Assessment: 57 w/ ulceration right foot 2/2 diabetic neuropathy Plan: Pt S&E with Dr. Leonila Benson, labs, charts reviewed: afebrile, no leukocytosis Wound culture: pending Dressed with saline w2d dressing (will use bactroban tomorrow) R foot x-ray: no gas emphysema noted, no cortical destructed noted, no evidence OM RLE MRI: small focus bone marrow edema noted to distal 1st metatarsal, no definite evidence OM Stable per podiatry Will follow
--- NOTE | 2017-06-27 08:35 | RAD ---
PROCEDURE: CHEST RADIOGRAPH, 1 VIEW HISTORY: Shortness of breath COMPARISON: 10/12/2014 FINDINGS: LUNGS: There is mild pulmonary venous congestion. PLEURA: No pneumothorax or pleural fluid seen. CARDIOVASCULAR: Normal. OSSEOUS STRUCTURES: No significant abnormalities. VISUALIZED UPPER ABDOMEN: Normal. OTHER FINDINGS: None. IMPRESSION: No active disease.
--- NOTE | 2017-06-27 09:51 | RAD ---
PROCEDURE: Right Foot Radiographs. HISTORY: right foot pain COMPARISON: None. FINDINGS: BONES: Normal. No fracture. Calcaneus spur. JOINTS: Normal. SOFT TISSUES: Mild diffuse soft tissue swelling. OTHER FINDINGS: None. IMPRESSION: No evidence of acute pathology in the osseous structures.
[2017-06-27] MEDS ORDERED: [UNRECOGNIZED DRUG - OTHER] SC SCH ×2 (10:00)
[2017-06-27] MEDS ORDERED: INSULIN ASPART SC SCH ×2 (10:00)
[2017-06-27] MEDS ORDERED: INSULIN ASPART PROTAMINE SC SCH ×2 (10:00)
[2017-06-27] MEDS ORDERED: Vancomycin 1 gm/NS 200 ml 1 GM/200 ML BAG IVPB SCH ×2 (14:00→15:00)
--- NOTE | 2017-06-27 14:04 | MRI ---
PROCEDURE: MRI of the right foot without contrast HISTORY: Evaluate for osteomyelitis at the 1st metatarsal bone COMPARISON: Comparison is made to the previous study dated 05/29/2017. TECHNIQUE: Axial coronal and sagittal MRI images of the right foot were obtained without IV contrast administration P FINDINGS: Again seen is small focus of increased T2 signal at the distal 1st metatarsal bone suggestive of small bone marrow edema without evidence of cortical destruction. No significant interval change noted since the previous exam. Soft tissue edema and possible inflammatory changes at the mid and distal right foot without evidence of discrete fluid collection. No evidence of cortical destruction or bone marrow edema in the rest of the right foot osseous structures. IMPRESSION: Small focus of bone marrow edema again noted at the distal 1st metatarsal bone. No definite evidence of osteomyelitis or significant interval change since the previous exam. Soft tissue edema at the mid and distal right foot without evidence of fluid collection.
--- NOTE | 2017-06-27 14:07 | CP.PCM.CON ---
History of Present Illness - History of Present Illness History of Present Illness: 57 year old female with PMH of DM seen in the ED for right foot abscess and right foot plantar de roofed hematoma. Patient states that she has had the ulceration to the right foot [place] She is known to Dr. Keen and has been seeing him almost weekly for wound care. She states that saw him today and was advised her to go to the ED. She has had swelling and noticed drainage, pus per patient, for the past 2 weeks. She also reports odor from the wound. Today she states the wound has closed up and the outside has gotten callused over. She denies n/v/cp/chills or f. She reports SOB at the time of visit. Review of Systems - Review of Systems All systems: reviewed and no additional remarkable complaints except - Constitutional Constitutional: absent: As Per HPI, Anorexia, Chills, Daytime Sleepiness, Excessive Sweating, Fatigue, Fever, Frequent Falls, Headache, Increased Appetite , Lethargy, Malaise, Night Sweats, Snoring, Sleep Apnea, Weight Gain, Weight Loss, Weakness, Other - EENT Eyes: absent: As Per HPI, Blind Spots, Blurred Vision, Change in Vision, Decreased Night Vision, Diplopia, Discharge, Dry Eye, Exophthalmos, Floaters, Irritation, Itchy Eyes, Loss of Peripheral Vision, Pain, Photophobia, Requires Corrective Lenses, Sees Flashes, Spots in Vision, Tunnel Vision, Other Visual Disturbances, Loss of Vision, Other Ears: absent: As Per HPI, Decreased Hearing, Ear Discharge, Ear Pain, Tinnitus, Abnormal Hearing, Disequilibrium, Dizziness, Other Nose/Mouth/Throat: absent: As Per HPI, Epistaxis, Nasal Congestion, Nasal Discharge, Nasal Obstruction, Nasal Trauma, Nose Pain, Post Nasal Drip, Sinus Pain, Sinus Pressure, Bleeding Gums, Change in Voice, Dental Pain, Dry Mouth, Dysphagia, Halitosis, Hoarsness, Lip Swelling, Mouth Lesions, Mouth Pain, Odynophagia, Sore Throat, Throat Swelling, Tongue Swelling, Facial Pain, Neck Pain, Neck Mass, Other - Breasts Breasts: absent: As Per HPI, Change in Shape, Mass, Pain, Nipple Discharge, Nipple Inversion, Skin Changes, Swelling, Other - Cardiovascular Cardiovascular: absent: As Per HPI, Acrocyanosis, Chest Pain, Chest Pain at Rest , Chest Pain with Activity, Claudication, Diaphoresis, Dyspnea, Dyspnea on Exertion, Edema, Irregular Heart Rhythm, Pain Radiating to Arm/Neck/Jaw, Leg Edema, Leg Ulcers, Lightheadedness, Orthopnea, Palpitations, Paroxysmal Nocturnal Dyspnea, Pedal Edema, Radiating Pain, Rapid Heart Rate, Slow Heart Rate, Syncope, Other - Respiratory Respiratory: Cough - Gastrointestinal Gastrointestinal: absent: As Per HPI, Abdominal Pain, Belching, Bloating, Change in Bowel Habits, Change in Stool Character, Coffee Ground Emesis, Constipation, Cramping, Diarrhea, Dyspepsia, Dysphagia, Early Satiety, Excessive Flatus, Fecal Incontinence, Heartburn, Hematemesis, Hematochezia, Loose Stools, Melena, Nausea, Odynophagia, Temesmus, Vomiting, Other - Genitourinary Genitourinary: absent: As Per HPI, Change in Urinary Stream, Difficulty Urinating, Dysuria, Flank Pain, Hematuria, Pyuria, Nocturia, Urinary Incontinence, Urinary Frequency, Urinary Hesitance, Urinary Urgency, Voiding Freq/Small Amts, Freq UTI, Hx Renal/Bladder Calculi, Hx /Renal Surgery, Bladder Distension, Other - Reproductive: Female Reproductive:Female: absent: As Per HPI, Amenorrhea, Amenorrhea/ Control, Currently Menstual, Cycle <21 Days, Cycle >35 Days, Cycle Variable, Menses 1-7 Days, Menses >/= 8 Days, Menses Variable, Cycle > 4 Weeks Between, No Menses for 6 Months, Heavy Menses, Light Menses, Normal Menses, Spotting Between Cycles , S/P Hysterectomy, Menopausal, Post Menopausal, Premenarche, Abnormal Vaginal Bleeding, Dysmenorrhea, Dyspareunia, Genital Lesions, Genital Pruritis, Pelvic Pain, Prolapse Symptoms, Sexual Dysfunction, Vaginal Discharge, Vaginal Dryness , Vaginal Odor, Vaginal Pruritis, Other - Menstruation Menstruation: absent: As Per HPI, Amenorrhea, Amenorrhea/ Control, Currently Menstual, Cycle <21 Days, Cycle >35 Days, Cycle Variable, Menses 1-7 Days, Menses >/= 8 Days, Menses Variable, Cycle > 4 Weeks Between, No Menses for 6 Months, Heavy Menses, Light Menses, Normal Menses, Spotting Between Cycles , S/P Hysterectomy, Menopausal, Post Menopausal, Premenarche, Abnormal Vaginal Bleeding, Dysmenorrhea, Other - Musculoskeletal Musculoskeletal: absent: As Per HPI, Abnormal Gait, Arthralgias, Atrophy, Back Pain, Deformity, Joint Swelling, Limited Range of Motion, Loss of Height, Muscle Cramps, Muscle Weakness, Myalgias, Neck Pain, Numbness, Radiating Pain into Limb, Stiffness, Tingling, Other - Integumentary Integumentary: As Per HPI, Skin Pain, Wounds - Neurological Neurological: As Per HPI - Psychiatric Psychiatric: absent: As Per HPI, Abnormal Sleep Pattern, Anhedonia, Anxiety, Auditory Hallucinations, Behavioral Changes, Change in Appetite, Change in Libido, Confusion, Depression, Difficulty Concentrating, Hallucinations, Homicidal Ideation, Hopelessness, Irritability, Memory Loss, Mood Swings, Panic Attacks, Paranoia, Suicidal Ideation, Visual Hallucinations, Tactile Hallucinations, Other - Endocrine Endocrine: absent: As Per HPI, Change in Body Appearance, Change in Libido, Cold Intolorance, Deepening of Voice, Excessive Sweating, Fatigue, Flushing, Heat Intolorance, Increase in Ring/Shoe/Hat Size, Palpitations, Polydipsia, Polyphagia, Polyuria, Other - Hematologic/Lymphatic Hematologic: absent: As Per HPI, Easy Bleeding, Easy Bruising, Lymphadenopathy, Other Past Patient History - Past Medical History & Family History Past Medical History?: Yes - Past Social History Smoking Status: Never Smoked - CARDIAC Hx Cardiac Disorders: No - PULMONARY Hx Respiratory Disorders: No - NEUROLOGICAL Hx Neurological Disorder: No Other/Comment: Hepatic Encephalopathy. Neuropathy - HEENT Hx HEENT Problems: No - RENAL Hx Chronic Kidney Disease: No - ENDOCRINE/METABOLIC Hx Endocrine Disorders: Yes Hx Diabetes Mellitus Type 1: Yes - HEMATOLOGICAL/ONCOLOGICAL Hx Blood Disorders: Yes Hx Cirrhosis: Yes - INTEGUMENTARY Hx Dermatological Problems: No Other/Comment: chicken pox - MUSCULOSKELETAL/RHEUMATOLOGICAL Hx Musculoskeletal Disorders: No Hx Falls: No Hx Osteomyelitis: Yes (Right big toe) - GASTROINTESTINAL Hx Gastrointestinal Disorders: No Other/Comment: hepatic encephalopathy - GENITOURINARY/GYNECOLOGICAL Hx Genitourinary Disorders: No - PSYCHIATRIC Hx Anxiety: Yes Hx Depression: Yes Hx Substance Use: No - SURGICAL HISTORY Hx Surgeries: Yes Hx Cholecystectomy: Yes Other/Comment: lt. foot surgery 2014. repair of hammer toe 2014. arthroplasty lt.2nd/3rd toe 2014 - ANESTHESIA Hx Anesthesia: Yes Hx Anesthesia Reactions: No Hx Malignant Hyperthermia: No Meds Allergies/Adverse Reactions: Allergies Allergy/AdvReac Type Severity Reaction Status Date / Time seafood Allergy RASH Uncoded 06/26/17 18:42 - Medications Medications: Current Medications Albuterol Sulfate (Albuterol 0.083% Inhal Lisa (2.5 Mg/3 Ml) Ud) 2.5 mg INH RQ6 PRN PRN Reason: Shortness of Breath Aspirin (Aspirin) 81 mg PO DAILY [facility] Last Admin: 06/27/17 12:05 Dose: Not Given Escitalopram Oxalate (Lexapro) 10 mg PO DAILY [facility] Last Admin: 06/27/17 10:06 Dose: 10 mg Gabapentin (Neurontin) 300 mg PO TID PRN PRN Reason: Pain, moderate (4-7) Home Med (Insulin Glargine,Hum.Rec.Anlog [Toujeo Solostar]) 70 unit SQ HS [facility] Home Med (Insulin Aspar/Insulin N 70/30 [Novolog Mix 70/30-U/Ml 3ml]) 50 unit SC TID [facility] Hydromorphone HCl (Dilaudid) 1 mg IVP Q4H PRN PRN Reason: Pain, moderate (4-7) Insulin Detemir (Levemir) 60 unit SC HS [facility] Insulin Glargine (Lantus) 50 unit SC HS [place] Losartan Potassium (Cozaar) 50 mg PO DAILY [facility] Last Admin: 06/27/17 10:06 Dose: 50 mg Mupirocin (Bactroban Ointment) 0 gm TOP BID [facility] Last Admin: 06/27/17 10:04 Dose: Not Given Rifaximin (Xifaxan) 550 mg PO BID [facility] Last Admin: 06/27/17 10:06 Dose: 550 mg Rosuvastatin Calcium (Crestor) 5 mg PO [facility] Physical Exam - Constitutional Appears: Non-toxic, Chronically Ill - Head Exam Head Exam: NORMOCEPHALIC - Eye Exam Eye Exam: PERRL. absent: Scleral icterus - ENT Exam ENT Exam: Mucous Membranes Dry, Normal External Ear Exam - Neck Exam Neck exam: Negative for: Lymphadenopathy - Respiratory Exam Respiratory Exam: Decreased Breath Sounds - Cardiovascular Exam Cardiovascular Exam: REGULAR RHYTHM - GI/Abdominal Exam GI & Abdominal Exam: Diminished Bowel Sounds, Soft. absent: Tenderness - Rectal Exam Rectal Exam: Deferred - Exam Exam: NORMAL INSPECTION - Extremities Exam Extremities exam: Positive for: pedal edema, tenderness. Negative for: calf tenderness, pedal pulses present - Back Exam Back exam: absent: CVA tenderness (L), CVA tenderness (R) - Neurological Exam Neurological exam: Alert, CN II-XII Intact, Oriented x3, Reflexes Normal - Psychiatric Exam Psychiatric exam: Normal Mood Results - Vital Signs Recent Vital Signs: Last Vital Signs Temp 97.6 F 06/27/17 07:42 Pulse 74 06/27/17 07:42 Resp 20 06/27/17 07:42 BP 156/70 H 06/27/17 07:42 Pulse Ox 96 06/27/17 07:42 - Labs Result Diagrams: 06/26/17 20:22 06/26/17 20:22 Labs: Laboratory Results - last 24 hr 06/26/17 06/26/17 06/26/17 20:15 20:22 20:22 WBC 3.8 L RBC 3.68 L Hgb 11.7 Hct 33.6 L MCV 91.1 MCH 31.9 H MCHC 35.0 RDW 15.4 H Plt Count 66 L MPV 9.3 Neut % (Auto) 67.6 Lymph % (Auto) 19.5 L [place] % (Auto) 10.6 H Eos % (Auto) 2.1 Baso % (Auto) 0.2 Neut # 2.6 Lymph # 0.8 L [place] # 0.4 Eos # 0.1 Baso # 0.0 Differential Comment PT 13.4 H INR 1.2 Puncture Site pCO2 pO2 HCO3 ABG pH ABG Total CO2 ABG O2 Saturation ABG Base Excess James Test ABG Potassium A-a O2 Difference Respiratory Index Glucose Lactate FiO2 Sodium Potassium Chloride Carbon Dioxide Anion Gap BUN Creatinine Est GFR ( Amer) Est GFR (Non-Af Amer) POC Glucose (mg/dL) 311 H Random Glucose Calcium Total Bilirubin AST ALT Alkaline Phosphatase NT-Pro-B Natriuret Pep Total Protein Albumin Globulin Albumin/Globulin Ratio Cholesterol Lipase Arterial Blood Potassium Urine Color Urine Clarity Urine pH Ur Specific [place] Urine Protein Urine Glucose (UA) Urine Ketones Urine Blood Urine Nitrate Urine Bilirubin Urine Urobilinogen Ur Leukocyte Esterase Urine WBC (Auto) Urine RBC (Auto) Ur Squamous Epith Cells Urine Bacteria Serum Ketones 09/06/26/17 06/26/17 20:22 20:41 20:50 WBC RBC Hgb Hct MCV MCH MCHC RDW Plt Count MPV Neut % (Auto) Lymph % (Auto) [place] % (Auto) Eos % (Auto) Baso % (Auto) Neut # Lymph # [place] # Eos # Baso # Differential Comment PT INR Puncture Site Rra pCO2 32 L pO2 79 L HCO3 27.3 ABG pH 7.51 H ABG Total CO2 26.5 ABG O2 Saturation 98.9 H ABG Base Excess 3.0 James Test Na ABG Potassium 3.8 A-a O2 Difference 31.0 Respiratory Index 0.4 Glucose 275 H Lactate 1.6 FiO2 21.0 Sodium 138 135.0 Potassium 4.2 Chloride 105 110.0 H Carbon Dioxide 24 Anion Gap 13 BUN 15 Creatinine 0.6 L Est GFR ( Amer) > 60 Est GFR (Non-Af Amer) > 60 POC Glucose (mg/dL) Random Glucose 255 H Calcium 8.6 Total Bilirubin 1.5 H AST 54 H ALT 39 Alkaline Phosphatase 114 NT-Pro-B Natriuret Pep 280 Total Protein 6.1 L Albumin 2.9 L Globulin 3.2 Albumin/Globulin Ratio 0.9 L Cholesterol Lipase 99 Arterial Blood Potassium 3.8 Urine Color Yellow Urine Clarity Clear Urine pH 6.0 Ur Specific [place] 1.017 Urine Protein 2+ H Urine Glucose (UA) 3+ H Urine Ketones Negative Urine Blood 3+ H Urine Nitrate Negative Urine Bilirubin Negative Urine Urobilinogen 4.0 H Ur Leukocyte Esterase Neg Urine WBC (Auto) 7 H Urine RBC (Auto) 17 H Ur Squamous Epith Cells 3 Urine Bacteria Occ H Serum Ketones Negative 06/27/17 06/27/17 06/27/17 07:16 07:47 11:29 WBC RBC Hgb Hct MCV MCH MCHC RDW Plt Count MPV Neut % (Auto) Lymph % (Auto) [place] % (Auto) Eos % (Auto) Baso % (Auto) Neut # Lymph # [place] # Eos # Baso # Differential Comment PT INR Puncture Site pCO2 pO2 HCO3 ABG pH ABG Total CO2 ABG O2 Saturation ABG Base Excess James Test ABG Potassium A-a O2 Difference Respiratory Index Glucose Lactate FiO2 Sodium Potassium Chloride Carbon Dioxide Anion Gap BUN Creatinine Est GFR ( Amer) Est GFR (Non-Af Amer) POC Glucose (mg/dL) 202 H 241 H Random Glucose Calcium Total Bilirubin AST ALT Alkaline Phosphatase NT-Pro-B Natriuret Pep Total Protein Albumin Globulin Albumin/Globulin Ratio Cholesterol 128 Lipase Arterial Blood Potassium Urine Color Urine Clarity Urine pH Ur Specific [place] Urine Protein Urine Glucose (UA) Urine Ketones Urine Blood Urine Nitrate Urine Bilirubin Urine Urobilinogen Ur Leukocyte Esterase Urine WBC (Auto) Urine RBC (Auto) Ur Squamous Epith Cells Urine Bacteria Serum Ketones Assessment & Plan (1) Cellulitis Status: Acute Priority: High Onset Date: 03/09/14 (2) Foot abscess, right Status: Acute (3) Diabetes type 2, uncontrolled Status: Chronic Priority: High (4) 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
[2017-06-27] MEDS: Piperacillin/Tazobact 3.375 GM in Sodium Chloride 100 ML IVPB SCH ×2 (15:22→22:02)
[2017-06-27] MEDS: Vancomycin 1 gm/NS 200 ml 1 GM/200 ML BAG IVPB SCH (16:00)
[2017-06-27] MEDS: (Novolin R) Insulin Human Regular 100 units/ml vial SC SCH ×2 (17:24→21:44)
[2017-06-27] MEDS: Albuterol 0.083% Inhal Sol (2.5 mg/3 mL) UD INH PRN (17:39)
--- NOTE | 2017-06-27 19:53 | CP.PCM.HP ---
History of Present Illness - History of Present Illness History of Present Illness: cc: infection of R hallux, t/c osteomyelitis; dyspnea HPI: Pt is a 57 yo female with a signif PMHx of uncontrolled diabetes, who was admitted in [place] approx 8 weeks ago when she went on vacation with her family there. Pt said she developed osteomyelitis of the same big toe, and was given IV abx. At discharge, pt sent home with Augmentin. Present on Admission - Present on Admission Any Indicators Present on Admission: No History of DVT/PE: No History of Uncontrolled Diabetes: Yes Urinary Catheter: No Decubitus Ulcer Present: No Past Patient History - Past Medical History & Family History Past Medical History?: Yes - Past Social History Smoking Status: Never Smoked Chewing Tobacco Use: No Cigar Use: No Alcohol: Social Drugs: Denies Home Situation {Lives}: With Family Domestic Violence: Negative - CARDIAC Hx Cardiac Disorders: No Hx Angina: No Hx Atrial Fibrillation: No Hx Cardia Arrhythmia: No - PULMONARY Hx Respiratory Disorders: No - NEUROLOGICAL Hx Neurological Disorder: No Other/Comment: Hepatic Encephalopathy. Neuropathy - HEENT Hx HEENT Problems: No - RENAL Hx Chronic Kidney Disease: No - ENDOCRINE/METABOLIC Hx Endocrine Disorders: Yes Hx Diabetes Mellitus Type 1: Yes - HEMATOLOGICAL/ONCOLOGICAL Hx Blood Disorders: Yes Hx Cirrhosis: Yes - INTEGUMENTARY Hx Dermatological Problems: No Other/Comment: chicken pox - MUSCULOSKELETAL/RHEUMATOLOGICAL Hx Musculoskeletal Disorders: No Hx Falls: No Hx Osteomyelitis: Yes (Right big toe) - GASTROINTESTINAL Hx Gastrointestinal Disorders: No Other/Comment: hepatic encephalopathy - GENITOURINARY/GYNECOLOGICAL Hx Genitourinary Disorders: No - PSYCHIATRIC Hx Anxiety: Yes Hx Depression: Yes Hx Substance Use: No - SURGICAL HISTORY Hx Surgeries: Yes Hx Cholecystectomy: Yes Other/Comment: lt. foot surgery 2014. repair of hammer toe 2014. arthroplasty lt.2nd/3rd toe 2014 - ANESTHESIA Hx Anesthesia: Yes Hx Anesthesia Reactions: No Hx Malignant Hyperthermia: No Meds Allergies/Adverse Reactions: Allergies Allergy/AdvReac Type Severity Reaction Status Date / Time seafood Allergy RASH Uncoded 06/26/17 18:42 Physical Exam - Constitutional Appears: In Acute Distress, Agitated, Confused - Head Exam Head Exam: NORMAL INSPECTION, NORMOCEPHALIC - Eye Exam Eye Exam: Normal appearance - ENT Exam ENT Exam: Mucous Membranes Dry, Mucous Membranes Moist, Normal Exam - Neck Exam Neck exam: Positive for: Full Rom, Thyromegaly (none) - Respiratory Exam Respiratory Exam: Clear to Auscultation Bilateral, Respiratory Distress - Cardiovascular Exam Cardiovascular Exam: REGULAR RHYTHM - GI/Abdominal Exam GI & Abdominal Exam: Hyperactive Bowel Sounds - Rectal Exam Rectal Exam: NORMAL INSPECTION - Back Exam Back exam: NORMAL INSPECTION - Neurological Exam Neurological exam: Abnormal Gait - Psychiatric Exam Psychiatric exam: Anxious - Skin Skin Exam: Diaphoretic, Warm Results - Vital Signs Recent Vital Signs: Last Vital Signs Temp 98.5 F 06/27/17 15:00 Pulse 72 06/27/17 15:00 Resp 20 06/27/17 15:00 BP 149/68 06/27/17 15:00 Pulse Ox 99 06/27/17 15:00 - Labs Result Diagrams: 06/28/17 06:23 06/28/17 06:23 Labs: Laboratory Results - last 24 hr 06/26/17 06/26/17 06/26/17 20:15 20:22 20:22 WBC 3.8 L RBC 3.68 L Hgb 11.7 Hct 33.6 L MCV 91.1 MCH 31.9 H MCHC 35.0 RDW 15.4 H Plt Count 66 L MPV 9.3 Neut % (Auto) 67.6 Lymph % (Auto) 19.5 L [place] % (Auto) 10.6 H Eos % (Auto) 2.1 Baso % (Auto) 0.2 Neut # 2.6 Lymph # 0.8 L [place] # 0.4 Eos # 0.1 Baso # 0.0 Differential Comment PT 13.4 H INR 1.2 Puncture Site pCO2 pO2 HCO3 ABG pH ABG Total CO2 ABG O2 Saturation ABG Base Excess James Test ABG Potassium A-a O2 Difference Respiratory Index Glucose Lactate FiO2 Sodium Potassium Chloride Carbon Dioxide Anion Gap BUN Creatinine Est GFR ( Amer) Est GFR (Non-Af Amer) POC Glucose (mg/dL) 311 H Random Glucose Calcium Total Bilirubin AST ALT Alkaline Phosphatase NT-Pro-B Natriuret Pep Total Protein Albumin Globulin Albumin/Globulin Ratio Cholesterol Lipase Arterial Blood Potassium Urine Color Urine Clarity Urine pH Ur Specific [place] Urine Protein Urine Glucose (UA) Urine Ketones Urine Blood Urine Nitrate Urine Bilirubin Urine Urobilinogen Ur Leukocyte Esterase Urine WBC (Auto) Urine RBC (Auto) Ur Squamous Epith Cells Urine Bacteria Serum Ketones 06/26/17 06/26/17 06/26/17 20:22 20:41 20:50 WBC RBC Hgb Hct MCV MCH MCHC RDW Plt Count MPV Neut % (Auto) Lymph % (Auto) [place] % (Auto) Eos % (Auto) Baso % (Auto) Neut # Lymph # [place] # Eos # Baso # Differential Comment PT INR Puncture Site Rra pCO2 32 L pO2 79 L HCO3 27.3 ABG pH 7.51 H ABG Total CO2 26.5 ABG O2 Saturation 98.9 H ABG Base Excess 3.0 James Test Na ABG Potassium 3.8 A-a O2 Difference 31.0 Respiratory Index 0.4 Glucose 275 H Lactate 1.6 FiO2 21.0 Sodium 138 135.0 Potassium 4.2 Chloride 105 110.0 H Carbon Dioxide 24 Anion Gap 13 BUN 15 Creatinine 0.6 L Est GFR ( Amer) > 60 Est GFR (Non-Af Amer) > 60 POC Glucose (mg/dL) Random Glucose 255 H Calcium 8.6 Total Bilirubin 1.5 H AST 54 H ALT 39 Alkaline Phosphatase 114 NT-Pro-B Natriuret Pep 280 Total Protein 6.1 L Albumin 2.9 L Globulin 3.2 Albumin/Globulin Ratio 0.9 L Cholesterol Lipase 99 Arterial Blood Potassium 3.8 Urine Color Yellow Urine Clarity Clear Urine pH 6.0 Ur Specific [place] 1.017 Urine Protein 2+ H Urine Glucose (UA) 3+ H Urine Ketones Negative Urine Blood 3+ H Urine Nitrate Negative Urine Bilirubin Negative Urine Urobilinogen 4.0 H Ur Leukocyte Esterase Neg Urine WBC (Auto) 7 H Urine RBC (Auto) 17 H Ur Squamous Epith Cells 3 Urine Bacteria Occ H Serum Ketones Negative 06/27/17 06/27/17 06/27/17 07:16 07:47 11:29 WBC RBC Hgb Hct MCV MCH MCHC RDW Plt Count MPV Neut % (Auto) Lymph % (Auto) [place] % (Auto) Eos % (Auto) Baso % (Auto) Neut # Lymph # [place] # Eos # Baso # Differential Comment PT INR Puncture Site pCO2 pO2 HCO3 ABG pH ABG Total CO2 ABG O2 Saturation ABG Base Excess James Test ABG Potassium A-a O2 Difference Respiratory Index Glucose Lactate FiO2 Sodium Potassium Chloride Carbon Dioxide Anion Gap BUN Creatinine Est GFR ( Amer) Est GFR (Non-Af Amer) POC Glucose (mg/dL) 202 H 241 H Random Glucose Calcium Total Bilirubin AST ALT Alkaline Phosphatase NT-Pro-B Natriuret Pep Total Protein Albumin Globulin Albumin/Globulin Ratio Cholesterol 128 Lipase Arterial Blood Potassium Urine Color Urine Clarity Urine pH Ur Specific [place] Urine Protein Urine Glucose (UA) Urine Ketones Urine Blood Urine Nitrate Urine Bilirubin Urine Urobilinogen Ur Leukocyte Esterase Urine WBC (Auto) Urine RBC (Auto) Ur Squamous Epith Cells Urine Bacteria Serum Ketones 06/27/17 16:14 WBC RBC Hgb Hct MCV MCH MCHC RDW Plt Count MPV Neut % (Auto) Lymph % (Auto) [place] % (Auto) Eos % (Auto) Baso % (Auto) Neut # Lymph # [place] # Eos # Baso # Differential Comment PT INR Puncture Site pCO2 pO2 HCO3 ABG pH ABG Total CO2 ABG O2 Saturation ABG Base Excess James Test ABG Potassium A-a O2 Difference Respiratory Index Glucose Lactate FiO2 Sodium Potassium Chloride Carbon Dioxide Anion Gap BUN Creatinine Est GFR ( Amer) Est GFR (Non-Af Amer) POC Glucose (mg/dL) 174 H Random Glucose Calcium Total Bilirubin AST ALT Alkaline Phosphatase NT-Pro-B Natriuret Pep Total Protein Albumin Globulin Albumin/Globulin Ratio Cholesterol Lipase Arterial Blood Potassium Urine Color Urine Clarity Urine pH Ur Specific [place] Urine Protein Urine Glucose (UA) Urine Ketones Urine Blood Urine Nitrate Urine Bilirubin Urine Urobilinogen Ur Leukocyte Esterase Urine WBC (Auto) Urine RBC (Auto) Ur Squamous Epith Cells Urine Bacteria Serum Ketones Assessment & Plan (1) Foot abscess, right Assessment and Plan: consult Podiatry for further mgt, jonathan if surgery contemplated at this point, otherwise, will consult ID for abx mgt of recurrent abscess Status: Acute (2) Liver cirrhosis secondary to PACE (nonalcoholic steatohepatitis) Assessment and Plan: dicussed management of pt's condition with pt when in office Status: Chronic Priority: Medium (3) Thrombocytopenia Assessment and Plan: consequence of liver cirrhosis, monitor and ensure pt does not bleed. pt aware of spontaneous bleeding levels Status: Chronic Priority: Medium (4) Diabetes type 2, uncontrolled Assessment and Plan: had proposed with pt that she needs to achieve better control of her BS in order to control her liver issue. Will actively modify insulin regimen to use long-acting insulin to control BS, and incorporate rapid acting types for meal time control Status: Chronic Priority: High
[2017-06-27 20:03] LABS: ABG ALLEN TEST POS; ARTERIAL BLOOD HGB O2 SAT 91.5 % (95.0-98.0); CARBOXYHEMOGLOBIN 3.5 % (0.5-1.5); DRAW SITE RRADIAL; HHB 3.7 % (0.0-5.0); METHEMOGLOBIN 1.4 % (0.0-3.0)
[2017-06-27] MEDS ORDERED: HYDROmorphone 1 mg/ml ISec IVP PRN (20:22)
[2017-06-27] MEDS: Promethazine/Cod 6.25mg-10mg/5ml Syr UD PO PRN (20:25)
[2017-06-27] MEDS: Insulin Detemir 100 units/ml Vial (Levemir) SC SCH (21:50)
[2017-06-27 21:53] LABS: FUNCTIONING PLTS 35 K/uL; PLT BASE COUNT 68 K/uL; PLT(ADP) 33 K/uL
[2017-06-27] MEDS ORDERED: (Lantus) Insulin Glargine, Recombinant SC SCH ×2 (22:00)
[2017-06-27] MEDS ORDERED: INSULIN GLARGINE HUM REC ANLOG 70 UNIT SQ SCH (22:00)
[2017-06-27] MEDS ORDERED: Insulin Detemir 100 units/ml Vial (Levemir) SC SCH (22:00)
[2017-06-28] MEDS: Promethazine/Cod 6.25mg-10mg/5ml Syr UD PO PRN (00:28)
[2017-06-28] MEDS: Piperacillin/Tazobact 3.375 GM in Sodium Chloride 100 ML IVPB SCH ×3 (06:06→22:30)
[2017-06-28 06:33] LABS: BASO % 0.3 % (0.0-2.0); EOS # 0.2 K/uL (0.0-0.7); EOS % 3.1 % (0.0-4.0); HEMATOCRIT 35.3 % (34.0-47.0); LYMPH # 0.7 K/uL (1.0-4.3); MEAN CELL VOLUME 90.2 fL (81.0-99.0); MEAN CORPUSCULAR HEMOGLOBIN 31.7 pg (27.0-31.0); MEAN CORPUSCULAR HGB CONC 35.1 g/dL (33.0-37.0); MONO # 0.6 K/uL (0.0-0.8); MONO % 10.6 % (0.0-10.0); RED CELL DISTRIBUTION WIDTH 15.2 % (11.5-14.5); WHITE BLOOD COUNT 5.4 K/uL (4.8-10.8)
[2017-06-28 07:12] LABS: ALKALINE PHOSPHATASE 67 U/L (38-126); ALT/SGPT 45 U/L (9-52); AST/SGOT 50 U/L (14-36); BILIRUBIN,DIRECT 0.3 mg/dL (0.0-0.4); BILIRUBIN,TOTAL 2.3 mg/dL (0.2-1.3); BLOOD UREA NITROGEN 13 mg/dL (7-17); CALCIUM 8.4 mg/dl (8.6-10.4); CARBON DIOXIDE 25 mmol/L (22-30); CHLORIDE 103 mmol/L (98-107); GFR AFRICAN-AMERICAN > 60; GLUCOSE,RANDOM 64 mg/dL (65-105); POTASSIUM 3.7 mmol/L (3.6-5.2); SODIUM 136 mmol/L (132-148); TOTAL PROTEIN 5.9 g/dL (6.3-8.3)
[2017-06-28 07:50] LABS: ALB/GLOB RATIO 0.8 (1.0-2.1)
[2017-06-28] MEDS: (Novolin R) Insulin Human Regular 100 units/ml vial SC SCH ×4 (08:10→21:58)
[2017-06-28] MEDS ORDERED: Barium Sulfate for Susp 96% w/w 176g Bottle PR ONE (09:51)
[2017-06-28] MEDS ORDERED: Barium Sulfate for Susp 98% w/w 340g Bottle ONE (09:51)
--- NOTE | 2017-06-28 10:07 | CP.PCM.PN ---
<Michael Keen - Last Filed: 06/28/17 10:03> Subjective - Date & Time of Evaluation Date of Evaluation: 06/28/17 Time of Evaluation: 10:04 - Subjective Subjective: Pt seen for follow up infection right foot. No Om .big improvement today. Objective - Vital Signs/Intake and Output Vital Signs (last 24 hours): Temp Pulse Resp BP Pulse Ox 99 F 76 20 127/70 97 06/28/17 07:00 06/28/17 07:00 06/28/17 07:00 06/28/17 07:00 06/28/17 07:00 Intake and Output: 06/28/17 06/28/17 06:59 18:59 Intake Total 340 Balance 340 - Medications Medications: Current Medications Albuterol Sulfate (Albuterol 0.083% Inhal Lisa (2.5 Mg/3 Ml) Ud) 2.5 mg INH RQ6 PRN PRN Reason: Shortness of Breath Last Admin: 06/27/17 17:39 Dose: 2.5 mg Aspirin (Aspirin Chewable) 81 mg PO DAILY [facility] Escitalopram Oxalate (Lexapro) 20 mg PO DAILY [facility] Famotidine (Pepcid) 20 mg IVP Q12 [facility] Last Admin: 06/27/17 21:43 Dose: 20 mg Gabapentin (Neurontin) 300 mg PO BID [facility] Last Admin: 06/27/17 17:24 Dose: 300 mg Hydromorphone HCl (Dilaudid) 1 mg IVP Q4H PRN PRN Reason: mod-sev pain (4-10) Piperacillin Sod/Tazobactam (Sod 3.375 gm/ Sodium Chloride) 100 mls @ 200 mls/ hr IVPB Q8H [facility] Last Admin: 06/28/17 06:06 Dose: 200 mls/hr Vancomycin/Sodium Chloride (Vancocin) 1 gm in 200 mls @ 133.333 mls/hr IVPB Q24H [facility] Last Admin: 06/27/17 16:00 Dose: 133.333 mls/hr Insulin Detemir (Levemir) 60 unit SC HS [facility] Last Admin: 06/27/17 21:50 Dose: 60 unit Insulin Human Regular (Novolin R) 0 unit SC ACHS [facility] PRN Reason: Protocol Last Admin: 06/28/17 08:10 Dose: Not Given Lorazepam (Ativan) 0.5 mg IVP Q6H PRN PRN Reason: Anxiety Losartan Potassium (Cozaar) 50 mg PO DAILY [facility] Last Admin: 06/27/17 10:06 Dose: 50 mg Metoclopramide HCl (Reglan) 10 mg IVP BID@1130,2200 [facility] Last Admin: 06/27/17 21:43 Dose: 10 mg Mupirocin (Bactroban Ointment) 0 gm TOP BID [facility] Last Admin: 06/27/17 19:00 Dose: 1 applic Promethazine HCl/Codeine (Phenergan/Codeine Oral Syrup) 5 ml PO Q4 PRN PRN Reason: Cough Last Admin: 06/28/17 00:28 Dose: 5 ml Rifaximin (Xifaxan) 550 mg PO BID [facility] Last Admin: 06/27/17 17:24 Dose: 550 mg Rosuvastatin Calcium (Crestor) 5 mg PO HS [facility] Last Admin: 06/27/17 21:20 Dose: 5 mg - Labs Labs: 06/28/17 06:23 06/28/17 06:23 PT 13.4 SECONDS (9.7-12.2) H 06/26/17 20:22 INR 1.2 06/26/17 20:22 Assessment and Plan - Assessment and Plan (Free Text) Plan: Pt seen and evaluated at bedside with resident . Labs and chart reviewed . <Catrachita Hardwick - Last Filed: 06/28/17 11:48> Subjective - Subjective Subjective: 57 yo diabetic female seen at bedside this AM with Dr. Keen for ulceration right foot. Pt is seen resting in bed at time of visit. Appear NAD. Denies any pain or discomfort. Denies f/n/v/c/sob/cp/weakness or dizziness at this time. Offers no other complaints Objective - Vital Signs/Intake and Output Vital Signs (last 24 hours): Temp Pulse Resp BP Pulse Ox 99 F 76 20 127/70 97 06/28/17 07:00 06/28/17 07:00 06/28/17 07:00 06/28/17 07:00 06/28/17 07:00 Intake and Output: 06/28/17 06/28/17 06:59 18:59 Intake Total 340 Balance 340 - Medications Medications: Current Medications Albuterol Sulfate (Albuterol 0.083% Inhal Lisa (2.5 Mg/3 Ml) Ud) 2.5 mg INH RQ6 PRN PRN Reason: Shortness of Breath Last Admin: 06/27/17 17:39 Dose: 2.5 mg Aspirin (Aspirin Chewable) 81 mg PO DAILY [facility] Escitalopram Oxalate (Lexapro) 20 mg PO DAILY [facility] Last Admin: 06/28/17 10:19 Dose: Not Given Famotidine (Pepcid) 20 mg IVP Q12 [facility] Last Admin: 06/28/17 10:20 Dose: Not Given Gabapentin (Neurontin) 300 mg PO BID [facility] Last Admin: 06/28/17 10:17 Dose: 300 mg Hydromorphone HCl (Dilaudid) 1 mg IVP Q4H PRN PRN Reason: mod-sev pain (4-10) Piperacillin Sod/Tazobactam (Sod 3.375 gm/ Sodium Chloride) 100 mls @ 200 mls/ hr IVPB Q8H [facility] Last Admin: 06/28/17 06:06 Dose: 200 mls/hr Vancomycin/Sodium Chloride (Vancocin) 1 gm in 200 mls @ 133.333 mls/hr IVPB Q24H [facility] Last Admin: 06/27/17 16:00 Dose: 133.333 mls/hr Insulin Detemir (Levemir) 60 unit SC HS [facility] Last Admin: 06/27/17 21:50 Dose: 60 unit Insulin Human Regular (Novolin R) 0 unit SC ACHS [facility] PRN Reason: Protocol Last Admin: 06/28/17 08:10 Dose: Not Given Lorazepam (Ativan) 0.5 mg IVP Q6H PRN PRN Reason: Anxiety Losartan Potassium (Cozaar) 50 mg PO DAILY [facility] Last Admin: 06/28/17 10:18 Dose: 50 mg Metoclopramide HCl (Reglan) 10 mg IVP BID@1130,2200 [facility] Last Admin: 06/27/17 21:43 Dose: 10 mg Mupirocin (Bactroban Ointment) 0 gm TOP BID [facility] Last Admin: 06/28/17 10:19 Dose: Not Given Promethazine HCl/Codeine (Phenergan/Codeine Oral Syrup) 5 ml PO Q4 PRN PRN Reason: Cough Last Admin: 06/28/17 00:28 Dose: 5 ml Rifaximin (Xifaxan) 550 mg PO BID [facility] Last Admin: 06/28/17 10:17 Dose: 550 mg Rosuvastatin Calcium (Crestor) 5 mg PO HS [facility] Last Admin: 06/27/17 21:20 Dose: 5 mg - Labs Labs: 06/28/17 06:23 06/28/17 06:23 PT 13.4 SECONDS (9.7-12.2) H 06/26/17 20:22 INR 1.2 06/26/17 20:22 - Constitutional Appears: Non-toxic, No Acute Distress - Extremities Exam Extremities Exam: absent: Calf Tenderness Additional comments: Vasc: DP and PT 2/4 bilaterally, CFT <3 seconds x10 digits, temperature gradient WNL, digit hair present Neuro: gross sensation slightly diminished Derm: superficial ulceration noted sub met 1 measures approximatel 1.0x0.5x0.3 cm with granular base, minimal serous drainage, no purulence, no ascending cellulitis, no malodor, neg probe to bone. Deroofed hematoma noted to the plantar medial arch measuring approximately 0.5 x 0.5 x .1 with granular base noted. - Neurological Exam Neurological Exam: Alert, Awake, Oriented x3 - Psychiatric Exam Psychiatric exam: Normal Affect, Normal Mood Assessment and Plan - Assessment and Plan (Free Text) Assessment: 57 w/ ulceration right foot 2/2 diabetic neuropathy Plan: Wound dressed with xeroform and DSD Wound cx: gram + cocci Abx as per ID Recommending Total Contact Cast to offload wound, however pt is refusing (she has refused in the past as well) Discussed with pt potential for further breakdown of the foot if she continues to put pressure on the wound with weightbearing Stable per podiatry To f/u with Dr. Suzanne Keen as outpatient
[2017-06-28] MEDS: Vancomycin 1 gm/NS 200 ml 1 GM/200 ML BAG IVPB SCH (16:00)
--- NOTE | 2017-06-28 16:19 | RAD ---
PROCEDURE: Upper GI series. HISTORY: severe reflux disease secondary to intermittent gastric outlet obstruction COMPARISON: None available. TECHNIQUE: Fluoroscopic evaluation of the esophagus stomach and small bowel was performed following administration of oral contrast. Clinical Lab Specialist view of the chest demonstrated diffuse increased interstitial lung markings throughout the chest with more consolidative changes at the left lung base. Biapical pleural thickening with upper lobe granulomatous changes. FINDINGS: Upon swallowing of contrast, patient subsequently aspirated contrast into the trachea. Exam was subsequently terminated. Impression: Upon swallowing of contrast, patient subsequently aspirated contrast into the trachea. Exam was subsequently terminated.
[2017-06-28] MEDS: Insulin Detemir 100 units/ml Vial (Levemir) SC SCH (21:57)
[2017-06-29] MEDS: Piperacillin/Tazobact 3.375 GM in Sodium Chloride 100 ML IVPB SCH ×3 (06:14→22:08)
[2017-06-29] MEDS: (Novolin R) Insulin Human Regular 100 units/ml vial SC SCH ×4 (08:09→22:07)
[2017-06-29] MEDS ORDERED: Barium Sulfate for Susp 98% w/w 340g Bottle ONE (10:29)
--- NOTE | 2017-06-29 11:22 | CP.PCM.PN ---
Subjective - Date & Time of Evaluation Date of Evaluation: 06/29/17 Time of Evaluation: 10:45 - Subjective Subjective: Podiatry Progress Note- Dr. Keen: 57 yo diabetic female seen at bedside this AM for f/u right foot ulceration. Pt seen resting comfortably in bed at time of visit. NAD. Pt denies any pain or discomfort in the RLE today. Visitors present at bedside. Pt seen coughing intermittently. Denies f/n/v/c/sob/cp today however does complain that she feels cold. No other complaints. Objective - Vital Signs/Intake and Output Vital Signs (last 24 hours): Temp Pulse Resp BP Pulse Ox 97.1 F L 72 20 136/72 95 06/29/17 07:22 06/29/17 07:22 06/29/17 07:22 06/29/17 07:22 06/29/17 07:22 Intake and Output: 06/29/17 06/29/17 06:59 18:59 Intake Total 340 Balance 340 - Medications Medications: Current Medications Albuterol Sulfate (Albuterol 0.083% Inhal Lisa (2.5 Mg/3 Ml) Ud) 2.5 mg INH RQ6 PRN PRN Reason: Shortness of Breath Last Admin: 06/27/17 17:39 Dose: 2.5 mg Aspirin (Aspirin Chewable) 81 mg PO DAILY [facility] Last Admin: 06/29/17 09:38 Dose: 81 mg Escitalopram Oxalate (Lexapro) 20 mg PO DAILY [facility] Last Admin: 06/29/17 09:39 Dose: 20 mg Famotidine (Pepcid) 20 mg IVP Q12 [facility] Last Admin: 06/29/17 09:38 Dose: 20 mg Gabapentin (Neurontin) 300 mg PO BID [facility] Last Admin: 06/29/17 09:38 Dose: 300 mg Hydromorphone HCl (Dilaudid) 1 mg IVP Q4H PRN PRN Reason: mod-sev pain (4-10) Piperacillin Sod/Tazobactam (Sod 3.375 gm/ Sodium Chloride) 100 mls @ 200 mls/ hr IVPB Q8H [facility] Last Admin: 06/29/17 06:14 Dose: 200 mls/hr Vancomycin/Sodium Chloride (Vancocin) 1 gm in 200 mls @ 133.333 mls/hr IVPB Q24H [facility] Last Admin: 06/28/17 16:00 Dose: 133.333 mls/hr Insulin Detemir (Levemir) 60 unit SC HS [facility] Last Admin: 06/28/17 21:57 Dose: 60 unit Insulin Human Regular (Novolin R) 0 unit SC ACHS [facility] PRN Reason: Protocol Last Admin: 06/29/17 08:09 Dose: Not Given Lorazepam (Ativan) 0.5 mg IVP Q6H PRN PRN Reason: Anxiety Losartan Potassium (Cozaar) 50 mg PO DAILY [facility] Last Admin: 06/29/17 09:38 Dose: 50 mg Metoclopramide HCl (Reglan) 10 mg IVP BID@1130,2200 [facility] Last Admin: 06/28/17 21:58 Dose: 10 mg Mupirocin (Bactroban Ointment) 0 gm TOP BID [facility] Last Admin: 06/29/17 09:40 Dose: Not Given Promethazine HCl/Codeine (Phenergan/Codeine Oral Syrup) 5 ml PO Q4 PRN PRN Reason: Cough Last Admin: 06/28/17 00:28 Dose: 5 ml Rifaximin (Xifaxan) 550 mg PO BID [facility] Last Admin: 06/29/17 09:38 Dose: 550 mg Rosuvastatin Calcium (Crestor) 5 mg PO HS [facility] Last Admin: 06/28/17 21:56 Dose: 5 mg - Labs Labs: 06/28/17 06:23 06/28/17 06:23 PT 13.4 SECONDS (9.7-12.2) H 06/26/17 20:22 INR 1.2 06/26/17 20:22 - Constitutional Appears: Non-toxic, No Acute Distress - Extremities Exam Extremities Exam: absent: Calf Tenderness Additional comments: RLE exam: Dressing appears c/d/i Vasc: DP and PT 2/4 bilaterally, CFT <3 seconds x10 digits, temperature gradient WNL, digital hair present Neuro: gross sensation slightly diminished Derm: superficial ulceration noted sub met 1 measures approximatel 1.0x0.5x0.3 cm with granular base appears epithelized, minimal serous drainage, no purulence , no ascending cellulitis, no malodor, neg probe to bone. Deroofed hematoma noted to the plantar medial arch measuring approximately 0.5 x 0.5 x .1 with granular base noted. - Neurological Exam Neurological Exam: Alert, Awake, Oriented x3 - Psychiatric Exam Psychiatric exam: Normal Affect, Normal Mood Assessment and Plan - Assessment and Plan (Free Text) Assessment: 57 w/ ulceration (healing) right foot 2/2 diabetic neuropathy Plan: Pt S&E at bedside D/w Dr. Keen Chart, labs and vital reviewed: Tmax 99.9 overnight, afebrile currently, no leukocytosis Wound cx (06/26): +E. faecalis Blood cx (06/26): +micrococcus species Abx as per ID Wound dressed with xeroform and DSD Again recommended to patient total contact cast to offload wound and to f/u in wound care center as outpatient Stable per podiatry For barium swallow test today Stable per podiatry Will follow
--- NOTE | 2017-06-29 12:33 | RAD ---
PROCEDURE: Modified barium swallow study. HISTORY: severe reflux disease 2ndry intermittent GOO 2ndry COMPARISON: None available. TECHNIQUE: Under fluoroscopic guidance, barium meals of various consistency were administered to the patient by the speech pathologist. Total radiation dose 9.439 mGy. Total fluoroscopic time: 1.6 minute FINDINGS: No penetration or aspiration was observed during this study. IMPRESSION: No penetration or aspiration observed. Please refer to the detailed report and recommendations of the speech pathologist.
--- NOTE | 2017-06-29 15:05 | CP.PCM.PN ---
Subjective - Date & Time of Evaluation Date of Evaluation: 06/29/17 Time of Evaluation: 10:00 - Subjective Subjective: still coughing drenies fever weak nad MRI neg for osteo podiatry debrided wound/hematoma cultures + for enterococcus blood isolate likely a contaminant Objective - Vital Signs/Intake and Output Vital Signs (last 24 hours): Temp Pulse Resp BP Pulse Ox 97.1 F L 72 20 136/72 95 06/29/17 07:22 06/29/17 07:22 06/29/17 07:22 06/29/17 07:22 06/29/17 07:22 Intake and Output: 06/29/17 06/29/17 06:59 18:59 Intake Total 340 Balance 340 - Medications Medications: Current Medications Albuterol Sulfate (Albuterol 0.083% Inhal Lisa (2.5 Mg/3 Ml) Ud) 2.5 mg INH RQ6 PRN PRN Reason: Shortness of Breath Last Admin: 06/27/17 17:39 Dose: 2.5 mg Aspirin (Aspirin Chewable) 81 mg PO DAILY [facility] Last Admin: 06/29/17 09:38 Dose: 81 mg Escitalopram Oxalate (Lexapro) 20 mg PO DAILY [facility] Last Admin: 06/29/17 11:52 Dose: Not Given Famotidine (Pepcid) 20 mg IVP Q12 [facility] Last Admin: 06/29/17 09:38 Dose: 20 mg Gabapentin (Neurontin) 300 mg PO BID [facility] Last Admin: 06/29/17 09:38 Dose: 300 mg Hydromorphone HCl (Dilaudid) 1 mg IVP Q4H PRN PRN Reason: mod-sev pain (4-10) Piperacillin Sod/Tazobactam (Sod 3.375 gm/ Sodium Chloride) 100 mls @ 200 mls/ hr IVPB Q8H [facility] Last Admin: 06/29/17 14:42 Dose: 200 mls/hr Vancomycin/Sodium Chloride (Vancocin) 1 gm in 200 mls @ 133.333 mls/hr IVPB Q24H [facility] Last Admin: 06/28/17 16:00 Dose: 133.333 mls/hr Insulin Detemir (Levemir) 60 unit SC HS [facility] Last Admin: 06/28/17 21:57 Dose: 60 unit Insulin Human Regular (Novolin R) 0 unit SC ACHS [facility] PRN Reason: Protocol Last Admin: 06/29/17 12:16 Dose: 1 unit Lorazepam (Ativan) 0.5 mg IVP Q6H PRN PRN Reason: Anxiety Losartan Potassium (Cozaar) 50 mg PO DAILY [facility] Last Admin: 06/29/17 09:38 Dose: 50 mg Metoclopramide HCl (Reglan) 10 mg IVP BID@1130,2200 [facility] Last Admin: 06/29/17 12:16 Dose: 10 mg Mupirocin (Bactroban Ointment) 0 gm TOP BID [facility] Last Admin: 06/29/17 09:40 Dose: Not Given Promethazine HCl/Codeine (Phenergan/Codeine Oral Syrup) 5 ml PO Q4 PRN PRN Reason: Cough Last Admin: 06/28/17 00:28 Dose: 5 ml Rifaximin (Xifaxan) 550 mg PO BID [facility] Last Admin: 06/29/17 09:38 Dose: 550 mg Rosuvastatin Calcium (Crestor) 5 mg PO HS [facility] Last Admin: 06/28/17 21:56 Dose: 5 mg - Labs Labs: 06/28/17 06:23 06/28/17 06:23 PT 13.4 SECONDS (9.7-12.2) H 06/26/17 20:22 INR 1.2 06/26/17 20:22 - Constitutional Appears: Non-toxic, Chronically Ill - Head Exam Head Exam: NORMOCEPHALIC - Eye Exam Eye Exam: PERRL. absent: Scleral icterus - ENT Exam ENT Exam: Mucous Membranes Dry, Normal External Ear Exam - Neck Exam Neck Exam: absent: Lymphadenopathy - Respiratory Exam Respiratory Exam: Decreased Breath Sounds - Cardiovascular Exam Cardiovascular Exam: REGULAR RHYTHM - GI/Abdominal Exam GI & Abdominal Exam: Distended, Soft - Rectal Exam Rectal Exam: Deferred - Exam Exam: NORMAL INSPECTION - Extremities Exam Extremities Exam: Pedal Edema. 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
[2017-06-29] MEDS: Vancomycin 1 gm/NS 200 ml 1 GM/200 ML BAG IVPB SCH (16:30)
--- NOTE | 2017-06-29 18:57 | CP.PCM.PN ---
Subjective - Date & Time of Evaluation Date of Evaluation: 06/29/17 Time of Evaluation: 18:54 - Subjective Subjective: LATE ENTRY FOR 07/02/2017: Pt sent for esophagram yesterday but test was terminated bec on sales product manager film of esophagus, pt noted to be aspirating silently when she coughs. This was what I suspected was happening that was triggering pt's coughing. Administration of a H2 domo, promotility agent and a change in HOB elevation also reduced pt's coughing. Explained this to pt who currently understands it. > Also adjusting pt's insulin to reduce the various types of insulin she uses and keep a constant level of sugar in her blood. Currently tolerating 60 units of Levemir at bedtime, with the highest SSI Novolin at 4 units. Objective - Vital Signs/Intake and Output Vital Signs (last 24 hours): Temp Pulse Resp BP Pulse Ox 98.4 F 77 20 149/75 93 L 06/29/17 15:00 06/29/17 15:00 06/29/17 15:00 06/29/17 15:00 06/29/17 15:00 Intake and Output: 06/29/17 06/29/17 06:59 18:59 Intake Total 340 Balance 340 - Medications Medications: Current Medications Albuterol Sulfate (Albuterol 0.083% Inhal Lisa (2.5 Mg/3 Ml) Ud) 2.5 mg INH RQ6 PRN PRN Reason: Shortness of Breath Last Admin: 06/27/17 17:39 Dose: 2.5 mg Aspirin (Aspirin Chewable) 81 mg PO DAILY [facility] Last Admin: 06/29/17 09:38 Dose: 81 mg Escitalopram Oxalate (Lexapro) 10 mg PO HS [facility] Famotidine (Pepcid) 20 mg IVP Q12 [facility] Last Admin: 06/29/17 09:38 Dose: 20 mg Famotidine (Pepcid) 40 mg PO Q12 [facility] Gabapentin (Neurontin) 300 mg PO BID [facility] Last Admin: 06/29/17 17:41 Dose: 300 mg Hydromorphone HCl (Dilaudid) 1 mg IVP Q4H PRN PRN Reason: mod-sev pain (4-10) Piperacillin Sod/Tazobactam (Sod 3.375 gm/ Sodium Chloride) 100 mls @ 200 mls/ hr IVPB Q8H [facility] Last Admin: 06/29/17 14:42 Dose: 200 mls/hr Vancomycin/Sodium Chloride (Vancocin) 1 gm in 200 mls @ 133.333 mls/hr IVPB Q24H [facility] Last Admin: 06/29/17 16:30 Dose: 133.333 mls/hr Insulin Detemir (Levemir) 66 unit SC Q24H [facility] Insulin Human Regular (Novolin R) 0 unit SC ACHS [facility] PRN Reason: Protocol Last Admin: 06/29/17 16:30 Dose: 3 unit Lorazepam (Ativan) 0.5 mg IVP Q6H PRN PRN Reason: Anxiety Losartan Potassium (Cozaar) 50 mg PO DAILY [facility] Last Admin: 06/29/17 09:38 Dose: 50 mg Metoclopramide HCl (Reglan) 10 mg IVP BID@1130,2200 [facility] Last Admin: 06/29/17 12:16 Dose: 10 mg Mupirocin (Bactroban Ointment) 0 gm TOP BID [facility] Last Admin: 06/29/17 18:03 Dose: Not Given Promethazine HCl/Codeine (Phenergan/Codeine Oral Syrup) 5 ml PO Q4 PRN PRN Reason: Cough Last Admin: 06/28/17 00:28 Dose: 5 ml Rifaximin (Xifaxan) 550 mg PO BID [facility] Last Admin: 06/29/17 17:41 Dose: 550 mg Rosuvastatin Calcium (Crestor) 5 mg PO HS [facility] Last Admin: 06/28/17 21:56 Dose: 5 mg - Labs Labs: 06/28/17 06:23 06/28/17 06:23 PT 13.4 SECONDS (9.7-12.2) H 06/26/17 20:22 INR 1.2 06/26/17 20:22 - Constitutional Appears: No Acute Distress - Head Exam Head Exam: NORMAL INSPECTION, NORMOCEPHALIC - Eye Exam Eye Exam: Normal appearance Pupil Exam: NORMAL ACCOMODATION - ENT Exam ENT Exam: Mucous Membranes Moist, Normal Exam - Neck Exam Neck Exam: Normal Inspection - Respiratory Exam Respiratory Exam: Clear to Ausculation Bilateral - Cardiovascular Exam Cardiovascular Exam: REGULAR RHYTHM - GI/Abdominal Exam GI & Abdominal Exam: Normal Bowel Sounds - Rectal Exam Rectal Exam: Deferred - Exam Exam: Circumcision External exam: NORMAL EXTERNAL EXAM Bimanual exam: NORMAL BIMANUAL EXAM - Extremities Exam Extremities Exam: Calf Tenderness, Tenderness - Back Exam Back Exam: NORMAL INSPECTION - Neurological Exam Neurological Exam: Alert, Awake Neuro motor strength exam: Left Upper Extremity: 4, Right Upper Extremity: 4, Left Lower Extremity: 4, Right Lower Extremity: 4 - Psychiatric Exam Psychiatric exam: Normal Affect, Normal Mood - Skin Skin Exam: Dry, Intact, Normal Color. absent: Urticaria Assessment and Plan (1) Foot abscess, right Assessment & Plan: improving per podiatry Status: Acute (2) Liver cirrhosis secondary to PACE (nonalcoholic steatohepatitis) Assessment & Plan: discussed with pt what needs to be done to shrink her liver. Pt says she will try. Status: Chronic (3) Thrombocytopenia Assessment & Plan: will monitor Status: Chronic (4) Diabetes type 2, uncontrolled Assessment & Plan: needs to be better controlled. baseline of 66 units of Levemir daily Status: Chronic
[2017-06-29] MEDS: Insulin Detemir 100 units/ml Vial (Levemir) SC SCH (22:06)
[2017-06-30] MEDS: Piperacillin/Tazobact 3.375 GM in Sodium Chloride 100 ML IVPB SCH ×3 (06:17→22:29)
[2017-06-30] MEDS: Promethazine/Cod 6.25mg-10mg/5ml Syr UD PO PRN (06:37)
[2017-06-30] MEDS: (Novolin R) Insulin Human Regular 100 units/ml vial SC SCH ×4 (08:24→22:23)
[2017-06-30] MEDS: Vancomycin 1 gm/NS 200 ml 1 GM/200 ML BAG IVPB SCH (16:30)
--- NOTE | 2017-06-30 16:50 | CP.PCM.PN ---
Subjective - Date & Time of Evaluation Date of Evaluation: 06/30/17 Time of Evaluation: 12:25 - Subjective Subjective: Podiatry Progress Note- Dr. Keen: 57 yo diabetic female seen at bedside this AM for f/u right foot ulceration. Pt seen resting comfortably in bed at time of visit. NAD. Pt denies any pain or discomfort in the RLE today. Pt seen coughing intermittently. Denies f/n/v/c/sob /cp today however does complain that she feels cold. No other complaints. Objective - Vital Signs/Intake and Output Vital Signs (last 24 hours): Temp Pulse Resp BP Pulse Ox 98.1 F 77 20 163/73 H 94 L 06/30/17 15:00 06/30/17 15:00 06/30/17 15:00 06/30/17 15:00 06/30/17 15:00 Intake and Output: 06/30/17 06/30/17 06:59 18:59 Intake Total 990 Balance 990 - Medications Medications: Current Medications Albuterol Sulfate (Albuterol 0.083% Inhal Lisa (2.5 Mg/3 Ml) Ud) 2.5 mg INH RQ6 PRN PRN Reason: Shortness of Breath Last Admin: 06/27/17 17:39 Dose: 2.5 mg Aspirin (Aspirin Chewable) 81 mg PO DAILY [facility] Last Admin: 06/30/17 09:36 Dose: 81 mg Escitalopram Oxalate (Lexapro) 10 mg PO HS [facility] Last Admin: 06/29/17 22:35 Dose: 10 mg Famotidine (Pepcid) 20 mg IVP Q12 [facility] Last Admin: 06/30/17 09:36 Dose: Not Given Famotidine (Pepcid) 40 mg PO Q12 [facility] Last Admin: 06/30/17 09:36 Dose: 40 mg Gabapentin (Neurontin) 300 mg PO BID [facility] Last Admin: 06/30/17 09:36 Dose: 300 mg Hydromorphone HCl (Dilaudid) 1 mg IVP Q4H PRN PRN Reason: mod-sev pain (4-10) Piperacillin Sod/Tazobactam (Sod 3.375 gm/ Sodium Chloride) 100 mls @ 200 mls/ hr IVPB Q8H [facility] Last Admin: 06/30/17 14:11 Dose: 200 mls/hr Vancomycin/Sodium Chloride (Vancocin) 1 gm in 200 mls @ 133.333 mls/hr IVPB Q24H [facility] Last Admin: 06/29/17 16:30 Dose: 133.333 mls/hr Insulin Detemir (Levemir) 66 unit SC Q24H [facility] Last Admin: 06/29/17 22:06 Dose: 66 unit Insulin Human Regular (Novolin R) 0 unit SC ACHS [facility] PRN Reason: Protocol Last Admin: 06/30/17 12:30 Dose: 3 unit Lorazepam (Ativan) 0.5 mg IVP Q6H PRN PRN Reason: Anxiety Losartan Potassium (Cozaar) 50 mg PO DAILY [facility] Last Admin: 06/30/17 09:36 Dose: 50 mg Metoclopramide HCl (Reglan) 10 mg IVP BID@1130,2200 [facility] Last Admin: 06/30/17 12:00 Dose: 10 mg Mupirocin (Bactroban Ointment) 0 gm TOP BID [facility] Last Admin: 06/30/17 09:38 Dose: 1 applic Promethazine HCl/Codeine (Phenergan/Codeine Oral Syrup) 5 ml PO Q4 PRN PRN Reason: Cough Last Admin: 06/30/17 06:37 Dose: 5 ml Rifaximin (Xifaxan) 550 mg PO BID [facility] Last Admin: 06/30/17 09:36 Dose: 550 mg Rosuvastatin Calcium (Crestor) 5 mg PO HS [facility] Last Admin: 06/29/17 22:19 Dose: 5 mg - Labs Labs: 06/28/17 06:23 06/28/17 06:23 PT 13.4 SECONDS (9.7-12.2) H 06/26/17 20:22 INR 1.2 06/26/17 20:22 - Constitutional Appears: Well, Non-toxic, No Acute Distress - Extremities Exam Additional comments: RLE exam: Dressing appears c/d/i Vasc: DP and PT 2/4 bilaterally, CFT <3 seconds x10 digits, temperature gradient WNL, digital hair present Neuro: gross sensation slightly diminished Derm: superficial ulceration noted sub met 1 measures approximatel 1.0x0.5x0.3 cm with granular base appears epithelized, minimal serous drainage, no purulence , no ascending cellulitis, no malodor, neg probe to bone. Deroofed hematoma noted to the plantar medial arch measuring approximately 0.5 x 0.5 x .1 with granular base noted. - Neurological Exam Neurological Exam: Alert, Awake, Oriented x3 - Psychiatric Exam Psychiatric exam: Normal Affect, Normal Mood Assessment and Plan - Assessment and Plan (Free Text) Assessment: 57 w/ ulceration (healing) right foot 2/2 diabetic neuropathy Plan: Pt S&E at bedside with attending Dr. Keen Chart, labs and vital reviewed: glucose 302 Wound cx (06/26): +E. faecalis Blood cx (06/26): +micrococcus species Abx as per ID Wound dressed with xeroform and DSD Again recommended to patient total contact cast to offload wound and to f/u in wound care center as outpatient Stable per podiatry Will follow
[2017-06-30] MEDS: Insulin Detemir 100 units/ml Vial (Levemir) SC SCH (18:11)
[2017-07-01] MEDS: Piperacillin/Tazobact 3.375 GM in Sodium Chloride 100 ML IVPB SCH ×3 (06:06→22:32)
[2017-07-01] MEDS: Albuterol 0.083% Inhal Sol (2.5 mg/3 mL) UD INH PRN (07:58)
[2017-07-01] MEDS: (Novolin R) Insulin Human Regular 100 units/ml vial SC SCH ×4 (08:10→21:41)
--- NOTE | 2017-07-01 11:55 | CP.PCM.PN ---
Subjective - Date & Time of Evaluation Date of Evaluation: 07/01/17 Time of Evaluation: 11:53 - Subjective Subjective: Podiatry Progress Note- Dr. Keen: 57 yo diabetic female seen at bedside this AM for f/u right foot ulceration. Pt seen resting comfortably in bed at time of visit. NAD. Pt denies any pain or discomfort in the RLE today. Denies f/n/v/c/sob/cp today however does complain that she feels cold. No other complaints. Objective - Vital Signs/Intake and Output Vital Signs (last 24 hours): Temp Pulse Resp BP Pulse Ox 98.3 F 71 20 143/72 98 07/01/17 08:00 07/01/17 08:00 07/01/17 08:00 07/01/17 08:00 07/01/17 08:00 Intake and Output: 07/01/17 07/01/17 06:59 18:59 Intake Total 300 Balance 300 - Medications Medications: Current Medications Albuterol Sulfate (Albuterol 0.083% Inhal Lisa (2.5 Mg/3 Ml) Ud) 2.5 mg INH RQ6 PRN PRN Reason: Shortness of Breath Last Admin: 07/01/17 07:58 Dose: 2.5 mg Aspirin (Aspirin Chewable) 81 mg PO DAILY [facility] Last Admin: 07/01/17 10:15 Dose: 81 mg Escitalopram Oxalate (Lexapro) 10 mg PO HS [facility] Last Admin: 06/30/17 22:19 Dose: 10 mg Famotidine (Pepcid) 20 mg IVP Q12 [facility] Last Admin: 07/01/17 10:16 Dose: Not Given Famotidine (Pepcid) 40 mg PO Q12 [facility] Last Admin: 07/01/17 10:15 Dose: 40 mg Gabapentin (Neurontin) 300 mg PO BID [facility] Last Admin: 07/01/17 10:14 Dose: 300 mg Hydromorphone HCl (Dilaudid) 1 mg IVP Q4H PRN PRN Reason: mod-sev pain (4-10) Piperacillin Sod/Tazobactam (Sod 3.375 gm/ Sodium Chloride) 100 mls @ 200 mls/ hr IVPB Q8H [facility] Last Admin: 07/01/17 06:06 Dose: 200 mls/hr Vancomycin/Sodium Chloride (Vancocin) 1 gm in 200 mls @ 133.333 mls/hr IVPB Q24H [facility] Last Admin: 06/30/17 16:30 Dose: 133.333 mls/hr Insulin Detemir (Levemir) 66 unit SC Q24H [facility] Last Admin: 06/30/17 18:11 Dose: 66 unit Insulin Human Regular (Novolin R) 0 unit SC ACHS [facility] PRN Reason: Protocol Last Admin: 07/01/17 08:10 Dose: 1 unit Lorazepam (Ativan) 0.5 mg IVP Q6H PRN PRN Reason: Anxiety Losartan Potassium (Cozaar) 50 mg PO DAILY [facility] Last Admin: 07/01/17 10:14 Dose: 50 mg Metoclopramide HCl (Reglan) 10 mg IVP BID@1130,2200 [facility] Last Admin: 06/30/17 22:22 Dose: 10 mg Mupirocin (Bactroban Ointment) 0 gm TOP BID [facility] Last Admin: 07/01/17 10:15 Dose: 1 applic Promethazine HCl/Codeine (Phenergan/Codeine Oral Syrup) 5 ml PO Q4 PRN PRN Reason: Cough Last Admin: 06/30/17 06:37 Dose: 5 ml Rifaximin (Xifaxan) 550 mg PO BID [facility] Last Admin: 07/01/17 10:15 Dose: 550 mg Rosuvastatin Calcium (Crestor) 5 mg PO HS [facility] Last Admin: 06/30/17 22:26 Dose: 5 mg - Labs Labs: 06/28/17 06:23 06/28/17 06:23 PT 13.4 SECONDS (9.7-12.2) H 06/26/17 20:22 INR 1.2 06/26/17 20:22 - Constitutional Appears: Well, Non-toxic, No Acute Distress - Extremities Exam Additional comments: RLE exam: Dressing appears c/d/i Vasc: DP and PT 2/4 bilaterally, CFT <3 seconds x10 digits, temperature gradient WNL, digital hair present Neuro: gross sensation slightly diminished Derm: superficial ulceration noted sub met 1 measures approximatel 1.0x0.5x0.3 cm with granular base appears epithelized, minimal serous drainage, no purulence , no ascending cellulitis, no malodor, neg probe to bone. Deroofed hematoma noted to the plantar medial arch measuring approximately 0.5 x 0.5 x .1 with granular base noted. MSK: Plantarflexed right first metatarsal. No POP to healed ulcer sites - Neurological Exam Neurological Exam: Alert, Awake, Oriented x3 - Psychiatric Exam Psychiatric exam: Normal Affect, Normal Mood Assessment and Plan - Assessment and Plan (Free Text) Assessment: 57 w/ ulceration (healing) right foot 2/2 diabetic neuropathy Plan: Pt S&E at bedside with attending Dr. Keen Chart, labs and vital reviewed: glucose 302 Wound cx (06/26): +E. faecalis Blood cx (06/26): +micrococcus species Abx as per ID Wound dressed with xeroform and DSD Again recommended to patient total contact cast to offload wound and to f/u in wound care center as outpatient Stable per podiatry Will follow
[2017-07-01] MEDS: Vancomycin 1 gm/NS 200 ml 1 GM/200 ML BAG IVPB SCH ×2 (16:00→18:18)
--- NOTE | 2017-07-01 17:13 | CP.PCM.PN ---
Subjective - Date & Time of Evaluation Date of Evaluation: 07/01/17 Time of Evaluation: 09:00 - Subjective Subjective: IV rx renewed Objective - Vital Signs/Intake and Output Vital Signs (last 24 hours): Temp Pulse Resp BP Pulse Ox 98.5 F 78 20 158/77 H 95 07/01/17 15:00 07/01/17 15:00 07/01/17 15:00 07/01/17 15:00 07/01/17 15:00 Intake and Output: 07/01/17 07/01/17 06:59 18:59 Intake Total 300 500 Balance 300 500 - Medications Medications: Current Medications Albuterol Sulfate (Albuterol 0.083% Inhal Lisa (2.5 Mg/3 Ml) Ud) 2.5 mg INH RQ6 PRN PRN Reason: Shortness of Breath Last Admin: 07/01/17 07:58 Dose: 2.5 mg Aspirin (Aspirin Chewable) 81 mg PO DAILY [facility] Last Admin: 07/01/17 10:15 Dose: 81 mg Escitalopram Oxalate (Lexapro) 10 mg PO HS [facility] Last Admin: 06/30/17 22:19 Dose: 10 mg Famotidine (Pepcid) 20 mg IVP Q12 [facility] Last Admin: 07/01/17 10:16 Dose: Not Given Famotidine (Pepcid) 40 mg PO Q12 [facility] Last Admin: 07/01/17 10:15 Dose: 40 mg Gabapentin (Neurontin) 300 mg PO BID [facility] Last Admin: 07/01/17 10:14 Dose: 300 mg Hydromorphone HCl (Dilaudid) 1 mg IVP Q4H PRN PRN Reason: mod-sev pain (4-10) Piperacillin Sod/Tazobactam (Sod 3.375 gm/ Sodium Chloride) 100 mls @ 200 mls/ hr IVPB Q8H [facility] Last Admin: 07/01/17 14:06 Dose: 200 mls/hr Vancomycin/Sodium Chloride (Vancocin) 1 gm in 200 mls @ 133.333 mls/hr IVPB Q24H [facility] Last Admin: 06/30/17 16:30 Dose: 133.333 mls/hr Insulin Detemir (Levemir) 66 unit SC Q24H [facility] Last Admin: 06/30/17 18:11 Dose: 66 unit Insulin Human Regular (Novolin R) 0 unit SC ACHS [facility] PRN Reason: Protocol Last Admin: 07/01/17 12:04 Dose: 1 unit Lorazepam (Ativan) 0.5 mg IVP Q6H PRN PRN Reason: Anxiety Losartan Potassium (Cozaar) 50 mg PO DAILY [facility] Last Admin: 07/01/17 10:14 Dose: 50 mg Metoclopramide HCl (Reglan) 10 mg IVP BID@1130,2200 [facility] Last Admin: 07/01/17 12:04 Dose: 10 mg Mupirocin (Bactroban Ointment) 0 gm TOP BID [facility] Last Admin: 07/01/17 10:15 Dose: 1 applic Promethazine HCl/Codeine (Phenergan/Codeine Oral Syrup) 5 ml PO Q4 PRN PRN Reason: Cough Last Admin: 06/30/17 06:37 Dose: 5 ml Rifaximin (Xifaxan) 550 mg PO BID [facility] Last Admin: 07/01/17 10:15 Dose: 550 mg Rosuvastatin Calcium (Crestor) 5 mg PO HS [facility] Last Admin: 06/30/17 22:26 Dose: 5 mg - Labs Labs: 06/28/17 06:23 06/28/17 06:23 PT 13.4 SECONDS (9.7-12.2) H 06/26/17 20:22 INR 1.2 06/26/17 20:22 - Constitutional Appears: Non-toxic, Chronically Ill - Head Exam Head Exam: NORMOCEPHALIC - Eye Exam Eye Exam: absent: Scleral icterus - ENT Exam ENT Exam: Mucous Membranes Dry, Normal External Ear Exam - Respiratory Exam Respiratory Exam: NORMAL BREATHING PATTERN - Cardiovascular Exam Cardiovascular Exam: REGULAR RHYTHM - GI/Abdominal Exam GI & Abdominal Exam: Distended - Rectal Exam Rectal Exam: Deferred - Exam Exam: NORMAL INSPECTION Assessment and Plan (1) Cellulitis Status: Acute (2) Foot abscess, right Status: Acute (3) Diabetes type 2, uncontrolled Status: Chronic (4) 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 (7) Osteomyelitis Status: Ruled-out
[2017-07-01] MEDS: Insulin Detemir 100 units/ml Vial (Levemir) SC SCH (18:17)
--- NOTE | 2017-07-02 05:32 | CP.PCM.PN ---
Subjective - Date & Time of Evaluation Date of Evaluation: 07/02/17 Time of Evaluation: 17:00 - Subjective Subjective: Pt's status reviewed and noted addition of SSI coverage which was intentionally left out by me on this admission because pt's insulin requirement did not agree with her schedule, hence the elevated hgbA1c readings obtained before. > Had attempted to determine cause of pt's intractable coughing. Esophagram, though terminated before actual test, showed aspiration of contrast into trachea , as I suspected. Instructed pt that understanding her positioning relative the GOO caused by her enlarged liver would produce immense relief for her should she follow my advice. Pt verbalized understanding. > in the meantime, pt had grown Micrococcus in her blood, and is currently covered by IV abx. Will check with ID how long to keep on it, but this tx usually would last 6 weeks. Objective - Vital Signs/Intake and Output Vital Signs (last 24 hours): Temp Pulse Resp BP Pulse Ox 98.4 F 76 20 147/61 96 07/01/17 23:35 07/01/17 23:35 07/01/17 23:35 07/01/17 23:35 07/01/17 23:35 Intake and Output: 07/01/17 07/02/17 18:59 06:59 Intake Total 500 500 Balance 500 500 - Medications Medications: Current Medications Albuterol Sulfate (Albuterol 0.083% Inhal Lisa (2.5 Mg/3 Ml) Ud) 2.5 mg INH RQ6 PRN PRN Reason: Shortness of Breath Last Admin: 07/01/17 07:58 Dose: 2.5 mg Aspirin (Aspirin Chewable) 81 mg PO DAILY [facility] Last Admin: 07/01/17 10:15 Dose: 81 mg Escitalopram Oxalate (Lexapro) 10 mg PO HS [facility] Last Admin: 07/01/17 21:42 Dose: 10 mg Famotidine (Pepcid) 40 mg PO Q12 [facility] Last Admin: 07/01/17 21:50 Dose: 40 mg Gabapentin (Neurontin) 300 mg PO BID [facility] Last Admin: 07/01/17 18:15 Dose: 300 mg Piperacillin Sod/Tazobactam (Sod 3.375 gm/ Sodium Chloride) 100 mls @ 200 mls/ hr IVPB Q8H [facility] Last Admin: 07/01/17 22:32 Dose: 200 mls/hr Vancomycin/Sodium Chloride (Vancocin) 1 gm in 200 mls @ 133.333 mls/hr IVPB Q12H [facility] Stop: 07/06/17 18:01 Last Admin: 07/01/17 18:18 Dose: 133.333 mls/hr Insulin Detemir (Levemir) 66 unit SC Q24H [facility] Last Admin: 07/01/17 18:17 Dose: 66 unit Lorazepam (Ativan) 0.5 mg IVP Q6H PRN PRN Reason: Anxiety Losartan Potassium (Cozaar) 50 mg PO DAILY [facility] Last Admin: 07/01/17 10:14 Dose: 50 mg Metoclopramide HCl (Reglan) 10 mg IVP BID@1130,2200 [facility] Last Admin: 07/01/17 21:42 Dose: 10 mg Mupirocin (Bactroban Ointment) 0 gm TOP BID [facility] Last Admin: 07/01/17 18:16 Dose: 1 applic Promethazine HCl/Codeine (Phenergan/Codeine Oral Syrup) 5 ml PO Q4 PRN PRN Reason: Cough Last Admin: 06/30/17 06:37 Dose: 5 ml Rifaximin (Xifaxan) 550 mg PO BID [facility] Last Admin: 07/01/17 18:15 Dose: 550 mg Rosuvastatin Calcium (Crestor) 5 mg PO HS [facility] Last Admin: 07/01/17 21:41 Dose: 5 mg - Labs Labs: 06/28/17 06:23 06/28/17 06:23 PT 13.4 SECONDS (9.7-12.2) H 06/26/17 20:22 INR 1.2 06/26/17 20:22 Assessment and Plan (1) Liver cirrhosis secondary to PACE (nonalcoholic steatohepatitis) Assessment & Plan: a highly reduced caloric intake would be necessary to reduce the pathology inherent in this disease per my readings. Will follow up outpatient with pt's GI for any other approach that the pt would adhere to. Status: Chronic (2) Thrombocytopenia Assessment & Plan: appears stable, pt has gone as low as 50,000 Status: Chronic (3) Diabetes type 2, uncontrolled Assessment & Plan: change of insulin to 1 dose of Levemir appears to work, provided pt adheres to diabetic diet. Advised pt that it is her diabetes that needs to be controlled if she is to reverse her liver problem. Status: Chronic (4) Foot abscess, right Assessment & Plan: improving Status: Acute
[2017-07-02] MEDS: Vancomycin 1 gm/NS 200 ml 1 GM/200 ML BAG IVPB SCH ×2 (05:36→17:45)
[2017-07-02] MEDS: Piperacillin/Tazobact 3.375 GM in Sodium Chloride 100 ML IVPB SCH ×3 (06:28→16:45)
[2017-07-02] MEDS: Albuterol 0.083% Inhal Sol (2.5 mg/3 mL) UD INH PRN (08:52)
[2017-07-02 11:43] LABS: BASO % 0.2 % (0.0-2.0); EOS # 0.1 K/uL (0.0-0.7); EOS % 2.9 % (0.0-4.0); HEMATOCRIT 31.6 % (34.0-47.0); LYMPH # 0.5 K/uL (1.0-4.3); LYMPH % 14.7 % (20.0-40.0); MEAN CELL VOLUME 89.1 fL (81.0-99.0); MEAN CORPUSCULAR HEMOGLOBIN 31.7 pg (27.0-31.0); MEAN CORPUSCULAR HGB CONC 35.6 g/dL (33.0-37.0); MEAN PLATELET VOLUME 9.1 fL (7.2-11.7); MONO # 0.3 K/uL (0.0-0.8); MONO % 7.6 % (0.0-10.0); RED CELL DISTRIBUTION WIDTH 14.6 % (11.5-14.5); WHITE BLOOD COUNT 3.4 K/uL (4.8-10.8)
--- NOTE | 2017-07-02 11:43 | CP.PCM.PN ---
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 Objective - Vital Signs/Intake and Output Vital Signs (last 24 hours): Temp Pulse Resp BP Pulse Ox 98 F 74 20 154/71 H 96 07/02/17 08:03 07/02/17 08:03 07/02/17 08:03 07/02/17 08:03 07/02/17 08:03 Intake and Output: 07/02/17 07/02/17 06:59 18:59 Intake Total 1000 Balance 1000 - Medications Medications: Current Medications Albuterol Sulfate (Albuterol 0.083% Inhal Lisa (2.5 Mg/3 Ml) Ud) 2.5 mg INH RQ6 PRN PRN Reason: Shortness of Breath Last Admin: 07/02/17 08:52 Dose: 2.5 mg Aspirin (Aspirin Chewable) 81 mg PO DAILY [facility] Last Admin: 07/02/17 10:14 Dose: 81 mg Escitalopram Oxalate (Lexapro) 10 mg PO HS [facility] Last Admin: 07/01/17 21:42 Dose: 10 mg Famotidine (Pepcid) 40 mg PO Q12 [facility] Last Admin: 07/02/17 10:14 Dose: 40 mg Gabapentin (Neurontin) 300 mg PO BID [facility] Last Admin: 07/02/17 10:14 Dose: 300 mg Piperacillin Sod/Tazobactam (Sod 3.375 gm/ Sodium Chloride) 100 mls @ 200 mls/ hr IVPB Q8H [facility] Last Admin: 07/02/17 06:28 Dose: 200 mls/hr Vancomycin/Sodium Chloride (Vancocin) 1 gm in 200 mls @ 133.333 mls/hr IVPB Q12H [facility] Stop: 07/06/17 18:01 Last Admin: 07/02/17 05:36 Dose: 133.333 mls/hr Insulin Detemir (Levemir) 66 unit SC Q24H [facility] Last Admin: 07/01/17 18:17 Dose: 66 unit Lorazepam (Ativan) 0.5 mg IVP Q6H PRN PRN Reason: Anxiety Losartan Potassium (Cozaar) 50 mg PO DAILY [facility] Last Admin: 07/02/17 10:13 Dose: 50 mg Metoclopramide HCl (Reglan) 10 mg IVP BID@1130,2200 [facility] Last Admin: 07/02/17 11:17 Dose: 10 mg Mupirocin (Bactroban Ointment) 0 gm TOP BID [facility] Last Admin: 07/02/17 10:15 Dose: 1 applic Promethazine HCl/Codeine (Phenergan/Codeine Oral Syrup) 5 ml PO Q4 PRN PRN Reason: Cough Last Admin: 06/30/17 06:37 Dose: 5 ml Rifaximin (Xifaxan) 550 mg PO BID [facility] Last Admin: 07/02/17 10:14 Dose: 550 mg Rosuvastatin Calcium (Crestor) 5 mg PO HS [facility] Last Admin: 07/01/17 21:41 Dose: 5 mg - Labs Labs: 06/28/17 06:23 06/28/17 06:23 PT 13.4 SECONDS (9.7-12.2) H 06/26/17 20:22 INR 1.2 06/26/17 20:22 - Constitutional Appears: Non-toxic, Chronically Ill - Head Exam Head Exam: NORMOCEPHALIC - Eye Exam Eye Exam: PERRL. absent: Scleral icterus - ENT Exam ENT Exam: Mucous Membranes Dry - Neck Exam Neck Exam: absent: Lymphadenopathy - Respiratory Exam Respiratory Exam: Decreased Breath Sounds, Rhonchi - Cardiovascular Exam Cardiovascular Exam: REGULAR RHYTHM - GI/Abdominal Exam GI & Abdominal Exam: Distended, Soft - Rectal Exam Rectal Exam: Deferred - Exam Exam: NORMAL INSPECTION Assessment and Plan (1) Cellulitis Status: Acute (2) Foot abscess, right Status: Acute (3) Diabetes type 2, uncontrolled Status: Chronic (4) 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 (7) Osteomyelitis Status: Ruled-out
[2017-07-02 11:59] LABS: CHLORIDE 100 mmol/L (98-107); SODIUM 137 mmol/L (132-148)
[2017-07-02 12:00] LABS: POTASSIUM 4.7 mmol/L (3.6-5.2)
[2017-07-02 12:01] LABS: CHOLESTEROL 122 mg/dL (0-199); GFR AFRICAN-AMERICAN > 60
[2017-07-02 12:02] LABS: ALB/GLOB RATIO 0.8 (1.0-2.1); ALKALINE PHOSPHATASE 83 U/L (38-126); ALT/SGPT 48 U/L (9-52); AST/SGOT 65 U/L (14-36); BILIRUBIN,TOTAL 1.4 mg/dL (0.2-1.3); BLOOD UREA NITROGEN 12 mg/dL (7-17); CALCIUM 8.3 mg/dl (8.6-10.4); CARBON DIOXIDE 28 mmol/L (22-30); GLUCOSE,RANDOM 249 mg/dL (65-105); TOTAL PROTEIN 6.2 g/dL (6.3-8.3)
--- NOTE | 2017-07-02 13:05 | CARD ---
APPROVED REPORT EKG Measurement Heart [id number] <Conclusion> Normal sinus rhythm Right bundle branch block Abnormal ECG
--- NOTE | 2017-07-02 16:06 | RAD ---
HISTORY: verify right PICC COMPARISON: No prior. FINDINGS: LUNGS: No active pulmonary disease. PLEURA: No significant pleural effusion identified, no pneumothorax apparent. CARDIOVASCULAR: Normal heart size. No congestive change. Right PICC catheter terminates at the level of the cavoatrial junction. OSSEOUS STRUCTURES: No significant abnormalities. VISUALIZED UPPER ABDOMEN: Normal. OTHER FINDINGS: None. IMPRESSION: Right PICC catheter terminates at approximately the cavoatrial junction. No pulmonary infiltrate.
--- NOTE | 2017-07-02 17:34 | CP.PCM.PN ---
<Gabriel Kunz - Last Filed: 07/02/17 17:31> Subjective - Date & Time of Evaluation Date of Evaluation: 07/02/17 Time of Evaluation: 11:30 - Subjective Subjective: Podiatry Progress Note- Dr. Keen: 57 yo diabetic female seen at bedside this AM for f/u right foot ulceration. Pt seen resting comfortably in bed at time of visit. NAD. Pt denies any pain or discomfort in the RLE today. Denies f/n/v/c/sob/cp today. No other complaints. Objective - Vital Signs/Intake and Output Vital Signs (last 24 hours): Temp Pulse Resp BP Pulse Ox 98.2 F 72 20 163/75 H 96 07/02/17 16:28 07/02/17 16:28 07/02/17 16:28 07/02/17 16:28 07/02/17 16:28 Intake and Output: 07/02/17 07/02/17 06:59 18:59 Intake Total 1000 470 Balance 1000 470 - Medications Medications: Current Medications Albuterol Sulfate (Albuterol 0.083% Inhal Lisa (2.5 Mg/3 Ml) Ud) 2.5 mg INH RQ6 PRN PRN Reason: Shortness of Breath Last Admin: 07/02/17 08:52 Dose: 2.5 mg Aspirin (Aspirin Chewable) 81 mg PO DAILY [facility] Last Admin: 07/02/17 10:14 Dose: 81 mg Escitalopram Oxalate (Lexapro) 10 mg PO HS [facility] Last Admin: 07/01/17 21:42 Dose: 10 mg Famotidine (Pepcid) 40 mg PO Q12 [facility] Last Admin: 07/02/17 10:14 Dose: 40 mg Gabapentin (Neurontin) 300 mg PO BID [facility] Last Admin: 07/02/17 10:14 Dose: 300 mg Vancomycin/Sodium Chloride (Vancocin) 1 gm in 200 mls @ 133.333 mls/hr IVPB Q12H [facility] Stop: 07/06/17 18:01 Last Admin: 07/02/17 05:36 Dose: 133.333 mls/hr Piperacillin Sod/Tazobactam (Sod 3.375 gm/ Sodium Chloride) 100 mls @ 200 mls/ hr IVPB Q8H [facility] Last Admin: 07/02/17 16:45 Dose: 200 mls/hr Insulin Detemir (Levemir) 66 unit SC Q24H [facility] Last Admin: 07/01/17 18:17 Dose: 66 unit Lorazepam (Ativan) 0.5 mg IVP Q6H PRN PRN Reason: Anxiety Losartan Potassium (Cozaar) 50 mg PO DAILY [facility] Last Admin: 07/02/17 10:13 Dose: 50 mg Metoclopramide HCl (Reglan) 10 mg IVP BID@1130,2200 [facility] Last Admin: 07/02/17 11:17 Dose: 10 mg Mupirocin (Bactroban Ointment) 0 gm TOP BID [facility] Last Admin: 07/02/17 10:15 Dose: 1 applic Promethazine HCl/Codeine (Phenergan/Codeine Oral Syrup) 5 ml PO Q4 PRN PRN Reason: Cough Last Admin: 06/30/17 06:37 Dose: 5 ml Rifaximin (Xifaxan) 550 mg PO BID [facility] Last Admin: 07/02/17 10:14 Dose: 550 mg Rosuvastatin Calcium (Crestor) 5 mg PO HS [facility] Last Admin: 07/01/17 21:41 Dose: 5 mg - Labs Labs: 07/02/17 11:30 07/02/17 11:30 PT 13.4 SECONDS (9.7-12.2) H 06/26/17 20:22 INR 1.2 06/26/17 20:22 - Constitutional Appears: Well, Non-toxic, No Acute Distress - Extremities Exam Additional comments: RLE exam: Dressing appears c/d/i Vasc: DP and PT 2/4 bilaterally, CFT <3 seconds x10 digits, temperature gradient WNL, digital hair present Neuro: gross sensation slightly diminished b/l Derm: superficial ulceration noted sub met 1 appears epithelized, no serous drainage, no purulence, no ascending cellulitis, no malodor, neg probe to bone. Deroofed hematoma noted to the plantar medial arch measuring approximately 0.5 x 0.5 x .1 with granular base noted. MSK: Plantarflexed right first metatarsal. No POP to healed ulcer sites - Neurological Exam Neurological Exam: Alert, Awake, Oriented x3 - Psychiatric Exam Psychiatric exam: Normal Affect, Normal Mood Assessment and Plan - Assessment and Plan (Free Text) Assessment: 57 w/ ulceration (healed) right foot 2/2 diabetic neuropathy Plan: Pt S&E at bedside with attending Dr. Keen Chart, labs and vital reviewed Wound cx (06/26): +E. faecalis Blood cx (06/26): +micrococcus species Abx as per ID Wound dressed with xeroform and DSD Again recommended to patient total contact cast to offload wound and to f/u in wound care center as outpatient Stable per podiatry Will follow <Michael Keen - Last Filed: 07/03/17 09:19> Objective - Vital Signs/Intake and Output Vital Signs (last 24 hours): Temp Pulse Resp BP Pulse Ox 98.1 F 71 20 164/71 H 96 07/03/17 07:59 07/03/17 07:59 07/03/17 07:59 07/03/17 07:59 07/03/17 07:59 Intake and Output: 07/03/17 07/03/17 06:59 18:59 Intake Total 340 Balance 340 - Medications Medications: Current Medications Albuterol Sulfate (Albuterol 0.083% Inhal Lisa (2.5 Mg/3 Ml) Ud) 2.5 mg INH RQ6 PRN PRN Reason: Shortness of Breath Last Admin: 07/02/17 08:52 Dose: 2.5 mg Aspirin (Aspirin Chewable) 81 mg PO DAILY [facility] Last Admin: 07/02/17 10:14 Dose: 81 mg Escitalopram Oxalate (Lexapro) 10 mg PO HS [facility] Last Admin: 07/02/17 21:12 Dose: 10 mg Famotidine (Pepcid) 40 mg PO Q12 [facility] Last Admin: 07/02/17 21:12 Dose: 40 mg Gabapentin (Neurontin) 300 mg PO BID [facility] Last Admin: 07/02/17 17:45 Dose: 300 mg Vancomycin/Sodium Chloride (Vancocin) 1 gm in 200 mls @ 133.333 mls/hr IVPB Q12H [facility] Stop: 07/06/17 18:01 Last Admin: 07/03/17 07:00 Dose: 133.333 mls/hr Piperacillin Sod/Tazobactam (Sod 3.375 gm/ Sodium Chloride) 100 mls @ 200 mls/ hr IVPB Q8H [facility] Last Admin: 07/03/17 08:53 Dose: 200 mls/hr Insulin Detemir (Levemir) 66 unit SC Q24H [facility] Last Admin: 07/02/17 18:41 Dose: 66 unit Lorazepam (Ativan) 0.5 mg IVP Q6H PRN PRN Reason: Anxiety Losartan Potassium (Cozaar) 50 mg PO DAILY [facility] Last Admin: 07/02/17 10:13 Dose: 50 mg Metoclopramide HCl (Reglan) 10 mg IVP BID@1130,2200 [facility] Last Admin: 07/02/17 21:12 Dose: 10 mg Mupirocin (Bactroban Ointment) 0 gm TOP BID [facility] Last Admin: 07/02/17 17:51 Dose: 1 applic Promethazine HCl/Codeine (Phenergan/Codeine Oral Syrup) 5 ml PO Q4 PRN PRN Reason: Cough Last Admin: 06/30/17 06:37 Dose: 5 ml Rifaximin (Xifaxan) 550 mg PO BID [facility] Last Admin: 07/02/17 17:46 Dose: 550 mg Rosuvastatin Calcium (Crestor) 5 mg PO HS [facility] Last Admin: 07/02/17 21:12 Dose: 5 mg - Labs Labs: 07/03/17 04:43 07/03/17 04:43 PT 13.4 SECONDS (9.7-12.2) H 06/26/17 20:22 INR 1.2 06/26/17 20:22 Assessment and Plan - Assessment and Plan (Free Text) Plan: pt seen and examined at bedside with resident .Chart and labs reviewed .agree with above findings .Dr Keen
[2017-07-02] MEDS: Insulin Detemir 100 units/ml Vial (Levemir) SC SCH (18:41)
[2017-07-02 22:30] LABS: ALT 25 U/L (6-29); BILIRUBIN, TOTAL 1.6 mg/dL (0.2-1.2); FIBROSIS STAGE F4; HAPTOGLOBIN <8 mg/dL (43-212); REFERENCE ID 1644744
[2017-07-03] MEDS: Piperacillin/Tazobact 3.375 GM in Sodium Chloride 100 ML IVPB SCH ×3 (00:25→16:06)
[2017-07-03 04:47] LABS: BASO % 0.2 % (0.0-2.0); EOS # 0.2 K/uL (0.0-0.7); EOS % 3.9 % (0.0-4.0); HEMATOCRIT 32.5 % (34.0-47.0); LYMPH # 0.9 K/uL (1.0-4.3); LYMPH % 19.5 % (20.0-40.0); MEAN CELL VOLUME 89.1 fL (81.0-99.0); MEAN CORPUSCULAR HEMOGLOBIN 31.6 pg (27.0-31.0); MEAN CORPUSCULAR HGB CONC 35.5 g/dL (33.0-37.0); MEAN PLATELET VOLUME 8.4 fL (7.2-11.7); MONO # 0.5 K/uL (0.0-0.8); MONO % 9.8 % (0.0-10.0); NRBC % 0.1 % (0.0-2.0); RED CELL DISTRIBUTION WIDTH 14.7 % (11.5-14.5); WHITE BLOOD COUNT 4.6 K/uL (4.8-10.8)
[2017-07-03 05:00] LABS: CHLORIDE 104 mmol/L (98-107)
[2017-07-03 05:01] LABS: POTASSIUM 3.6 mmol/L (3.6-5.2); SODIUM 140 mmol/L (132-148)
[2017-07-03 05:03] LABS: AST/SGOT 58 U/L (14-36); BILIRUBIN,TOTAL 1.3 mg/dL (0.2-1.3); CARBON DIOXIDE 29 mmol/L (22-30); GFR AFRICAN-AMERICAN > 60; TOTAL PROTEIN 6.8 g/dL (6.3-8.3)
[2017-07-03 05:04] LABS: ALKALINE PHOSPHATASE 77 U/L (38-126); ALT/SGPT 50 U/L (9-52); BLOOD UREA NITROGEN 12 mg/dL (7-17); CALCIUM 8.8 mg/dl (8.6-10.4); GLUCOSE,RANDOM 65 mg/dL (65-105)
[2017-07-03 05:07] LABS: ALB/GLOB RATIO 0.7 (1.0-2.1)
[2017-07-03] MEDS: Vancomycin 1 gm/NS 200 ml 1 GM/200 ML BAG IVPB SCH ×2 (07:00→17:41)
--- NOTE | 2017-07-03 10:06 | CP.PCM.PN ---
<Isaiah Sweet - Last Filed: 07/03/17 21:45> Objective - Vital Signs/Intake and Output Vital Signs (last 24 hours): Temp Pulse Resp BP Pulse Ox 98.3 F 74 20 149/74 93 L 07/03/17 15:08 07/03/17 15:08 07/03/17 15:08 07/03/17 15:08 07/03/17 15:08 Intake and Output: 07/03/17 07/04/17 18:59 06:59 Intake Total 600 Balance 600 - Labs Labs: 07/03/17 04:43 07/03/17 04:43 PT 13.4 SECONDS (9.7-12.2) H 06/26/17 20:22 INR 1.2 06/26/17 20:22 - Extremities Exam Additional comments: RLE exam: Dressing appears c/d/i Vasc: DP and PT 2/4 bilaterally, CFT <3 seconds x10 digits, temperature gradient WNL, digital hair present Neuro: gross sensation slightly diminished b/l Derm: superficial ulceration noted sub met 1 appears epithelized, no serous drainage, no purulence, no ascending cellulitis, no malodor, neg probe to bone. Deroofed hematoma noted to the plantar medial arch measuring approximately 0.5 x 0.5 x .1 with granular base noted. MSK: Plantarflexed right first metatarsal. No POP to healed ulcer sites Assessment and Plan - Assessment and Plan (Free Text) Assessment: 57 w/ ulceration (healed) right foot secondary to diabetic neuropathy Plan: Pt S&E at bedside with attending Dr. Keen Chart, labs and vital reviewed Abx as per ID on outpatient basis upon discharge. Wound dressed with xeroform and DSD Again recommended to patient total contact cast to offload wound to potentially be applied on outpatient followup. Stable per podiatry for discharge. Will followup with Dr. Keen on outpatient basis. <Michael Keen - Last Filed: 07/04/17 10:17> Subjective - Date & Time of Evaluation Date of Evaluation: 07/03/17 Time of Evaluation: 10:05 - Subjective Subjective: Pt seen this am for continued follow up right foot ulcer and infection .Pt has Picc line and will be D/C for home care . Objective - Vital Signs/Intake and Output Vital Signs (last 24 hours): Temp Pulse Resp BP Pulse Ox 98.1 F 71 20 164/71 H 96 07/03/17 07:59 07/03/17 07:59 07/03/17 07:59 07/03/17 07:59 07/03/17 07:59 Intake and Output: 07/03/17 07/03/17 06:59 18:59 Intake Total 340 Balance 340 - Medications Medications: Current Medications Albuterol Sulfate (Albuterol 0.083% Inhal Lisa (2.5 Mg/3 Ml) Ud) 2.5 mg INH RQ6 PRN PRN Reason: Shortness of Breath Last Admin: 07/02/17 08:52 Dose: 2.5 mg Aspirin (Aspirin Chewable) 81 mg PO DAILY [facility] Last Admin: 07/03/17 09:43 Dose: 81 mg Escitalopram Oxalate (Lexapro) 10 mg PO HS [facility] Last Admin: 07/02/17 21:12 Dose: 10 mg Famotidine (Pepcid) 40 mg PO Q12 [facility] Last Admin: 07/03/17 09:43 Dose: 40 mg Gabapentin (Neurontin) 300 mg PO BID [facility] Last Admin: 07/03/17 09:43 Dose: 300 mg Vancomycin/Sodium Chloride (Vancocin) 1 gm in 200 mls @ 133.333 mls/hr IVPB Q12H [facility] Stop: 07/06/17 18:01 Last Admin: 07/03/17 07:00 Dose: 133.333 mls/hr Piperacillin Sod/Tazobactam (Sod 3.375 gm/ Sodium Chloride) 100 mls @ 200 mls/ hr IVPB Q8H [facility] Last Admin: 07/03/17 08:53 Dose: 200 mls/hr Insulin Detemir (Levemir) 66 unit SC Q24H [facility] Last Admin: 07/02/17 18:41 Dose: 66 unit Lorazepam (Ativan) 0.5 mg IVP Q6H PRN PRN Reason: Anxiety Losartan Potassium (Cozaar) 50 mg PO DAILY [facility] Last Admin: 07/03/17 09:43 Dose: 50 mg Metoclopramide HCl (Reglan) 10 mg IVP BID@1130,2200 [facility] Last Admin: 07/02/17 21:12 Dose: 10 mg Mupirocin (Bactroban Ointment) 0 gm TOP BID [facility] Last Admin: 07/03/17 09:43 Dose: 1 applic Promethazine HCl/Codeine (Phenergan/Codeine Oral Syrup) 5 ml PO Q4 PRN PRN Reason: Cough Last Admin: 06/30/17 06:37 Dose: 5 ml Rifaximin (Xifaxan) 550 mg PO BID [facility] Last Admin: 07/03/17 09:43 Dose: 550 mg Rosuvastatin Calcium (Crestor) 5 mg PO HS [facility] Last Admin: 07/02/17 21:12 Dose: 5 mg - Labs Labs: 07/03/17 04:43 07/03/17 04:43 PT 13.4 SECONDS (9.7-12.2) H 06/26/17 20:22 INR 1.2 06/26/17 20:22 Assessment and Plan - Assessment and Plan (Free Text) Plan: Pt seen at bedside and evaluated. Pts needs TCC bahman fully heal area . discussed in detail with pt.local wound care with bactroban dressing until then . agree with above. DR KEEN .
--- NOTE | 2017-07-03 12:40 | CP.PCM.PN ---
Subjective - Date & Time of Evaluation Date of Evaluation: 07/03/17 Time of Evaluation: 10:00 - Subjective Subjective: IV RX IN PROGRESS Objective - Vital Signs/Intake and Output Vital Signs (last 24 hours): Temp Pulse Resp BP Pulse Ox 98.1 F 71 20 164/71 H 96 07/03/17 07:59 07/03/17 07:59 07/03/17 07:59 07/03/17 07:59 07/03/17 07:59 Intake and Output: 07/03/17 07/03/17 06:59 18:59 Intake Total 340 Balance 340 - Medications Medications: Current Medications Albuterol Sulfate (Albuterol 0.083% Inhal Lisa (2.5 Mg/3 Ml) Ud) 2.5 mg INH RQ6 PRN PRN Reason: Shortness of Breath Last Admin: 07/02/17 08:52 Dose: 2.5 mg Aspirin (Aspirin Chewable) 81 mg PO DAILY [facility] Last Admin: 07/03/17 09:43 Dose: 81 mg Escitalopram Oxalate (Lexapro) 10 mg PO HS [facility] Last Admin: 07/02/17 21:12 Dose: 10 mg Famotidine (Pepcid) 40 mg PO Q12 [facility] Last Admin: 07/03/17 09:43 Dose: 40 mg Gabapentin (Neurontin) 300 mg PO BID [facility] Last Admin: 07/03/17 09:43 Dose: 300 mg Vancomycin/Sodium Chloride (Vancocin) 1 gm in 200 mls @ 133.333 mls/hr IVPB Q12H [facility] Stop: 07/06/17 18:01 Last Admin: 07/03/17 07:00 Dose: 133.333 mls/hr Piperacillin Sod/Tazobactam (Sod 3.375 gm/ Sodium Chloride) 100 mls @ 200 mls/ hr IVPB Q8H [facility] Last Admin: 07/03/17 08:53 Dose: 200 mls/hr Insulin Detemir (Levemir) 66 unit SC Q24H [facility] Last Admin: 07/02/17 18:41 Dose: 66 unit Lorazepam (Ativan) 0.5 mg IVP Q6H PRN PRN Reason: Anxiety Losartan Potassium (Cozaar) 50 mg PO DAILY [facility] Last Admin: 07/03/17 09:43 Dose: 50 mg Metoclopramide HCl (Reglan) 10 mg IVP BID@1130,2200 [facility] Last Admin: 07/03/17 11:23 Dose: 10 mg Mupirocin (Bactroban Ointment) 0 gm TOP BID [facility] Last Admin: 07/03/17 09:43 Dose: 1 applic Promethazine HCl/Codeine (Phenergan/Codeine Oral Syrup) 5 ml PO Q4 PRN PRN Reason: Cough Last Admin: 06/30/17 06:37 Dose: 5 ml Rifaximin (Xifaxan) 550 mg PO BID [facility] Last Admin: 07/03/17 09:43 Dose: 550 mg Rosuvastatin Calcium (Crestor) 5 mg PO HS [facility] Last Admin: 07/02/17 21:12 Dose: 5 mg - Labs Labs: 07/03/17 04:43 07/03/17 04:43 PT 13.4 SECONDS (9.7-12.2) H 06/26/17 20:22 INR 1.2 06/26/17 20:22 - Constitutional Appears: Non-toxic, Chronically Ill - Head Exam Head Exam: NORMOCEPHALIC - Eye Exam Eye Exam: PERRL - ENT Exam ENT Exam: Mucous Membranes Dry - Neck Exam Neck Exam: absent: Lymphadenopathy - Respiratory Exam Respiratory Exam: Decreased Breath Sounds - Cardiovascular Exam Cardiovascular Exam: REGULAR RHYTHM - GI/Abdominal Exam GI & Abdominal Exam: Distended, Soft Assessment and Plan (1) Cellulitis Status: Acute (2) Foot abscess, right Status: Acute (3) Diabetes type 2, uncontrolled Status: Chronic (4) 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
[2017-07-03 16:09] VITALS: BP 149/74; PULSE 74; TEMP 98.3; O2SAT 93
[2017-07-03] MEDS: Insulin Detemir 100 units/ml Vial (Levemir) SC SCH (18:59)
--- NOTE | 2017-07-03 19:32 | CP.PCM.DIS ---
Provider - Provider Date of Admission: 06/26/17 22:23 Attending physician: Jeff Franz MD Primary care physician: Dr. Jeff Franz Consults: Dr. Michael Parsons Time Spent in preparation of Discharge (in minutes): 45 Diagnosis - Discharge Diagnosis (1) Foot abscess, right Status: Acute Priority: Medium Comment: improving. will continue IV abx at home x 3 more weeks (2) Liver cirrhosis secondary to PACE (nonalcoholic steatohepatitis) Status: Chronic Priority: Medium Comment: needs crash diet with less calories and more efficient use of food to fuel her activities (3) Thrombocytopenia Status: Chronic Priority: Medium Comment: causes 2ndry problem of GERD 2ndry to intermittent gastric outlet obstruction (4) Diabetes type 2, uncontrolled Status: Chronic Priority: High Comment: most probable primary culprit in causing pt's PACE Hospital Course - Lab Results Lab Results: Micro Results 06/28/17 12:00 Blood Blood Culture - Final NO GROWTH AFTER 5 DAYS 06/28/17 12:00 Blood Gram Stain - Final TEST NOT PERFORMED 06/29/17 06:30 Blood-Venous Blood Culture - Preliminary NO GROWTH AFTER 4 DAYS 06/29/17 07:00 Blood-Venous Blood Culture - Preliminary NO GROWTH AFTER 4 DAYS 06/26/17 20:15 Blood Blood Culture - Final NO GROWTH AFTER 5 DAYS 06/26/17 20:15 Blood Gram Stain - Final TEST NOT PERFORMED 06/26/17 23:20 Foot - Right Gram Stain - Final 06/26/17 23:20 Foot - Right Wound Culture - Final Enterococcus Faecalis 06/26/17 19:45 Blood S.aureus & Coag-Neg Staph PNA FISH - Final 06/26/17 19:45 Blood Blood Culture - Final Micrococcus Species 06/26/17 19:45 Blood Gram Stain - Final Most Recent Lab Values WBC 4.6 K/uL (4.8-10.8) L 07/03/17 04:43 RBC 3.64 Mil/uL (3.80-5.20) L 07/03/17 04:43 Hgb 11.5 g/dL (11.0-16.0) 07/03/17 04:43 Hct 32.5 % (34.0-47.0) L 07/03/17 04:43 MCV 89.1 fL (81.0-99.0) 07/03/17 04:43 MCH 31.6 pg (27.0-31.0) H 07/03/17 04:43 MCHC 35.5 g/dL (33.0-37.0) 07/03/17 04:43 RDW 14.7 % (11.5-14.5) H 07/03/17 04:43 Plt Count 75 K/uL (130-400) L 07/03/17 04:43 MPV 8.4 fL (7.2-11.7) 07/03/17 04:43 Neut % (Auto) 66.6 % (50.0-75.0) 07/03/17 04:43 Lymph % (Auto) 19.5 % (20.0-40.0) L 07/03/17 04:43 [place] % (Auto) 9.8 % (0.0-10.0) 07/03/17 04:43 Eos % (Auto) 3.9 % (0.0-4.0) 07/03/17 04:43 Baso % (Auto) 0.2 % (0.0-2.0) 07/03/17 04:43 Neut # 3.1 K/uL (1.8-7.0) 07/03/17 04:43 Lymph # 0.9 K/uL (1.0-4.3) L 07/03/17 04:43 [place] # 0.5 K/uL (0.0-0.8) 07/03/17 04:43 Eos # 0.2 K/uL (0.0-0.7) 07/03/17 04:43 Baso # 0.0 K/uL (0.0-0.2) 07/03/17 04:43 Differential Comment 06/26/17 20:22 ESR 68 mm/hr (0-20) H 06/30/17 08:17 Haptoglobin <8 mg/dL (43-212) L 06/28/17 12:41 PT 13.4 SECONDS (9.7-12.2) H 06/26/17 20:22 INR 1.2 06/26/17 20:22 Plt Function Assay 35 K/uL 06/27/17 21:14 Puncture Site Rradial 06/27/17 19:55 pCO2 38 mm/Hg (35-45) 06/27/17 19:55 pO2 68 mm/Hg (80-100) L 06/27/17 19:55 HCO3 26.1 mmol/L (21-28) 06/27/17 19:55 ABG pH 7.44 (7.35-7.45) 06/27/17 19:55 ABG Total CO2 27.0 mmol/L (22-28) 06/27/17 19:55 ABG O2 Saturation 96.1 % (95-98) 06/27/17 19:55 ABG Base Excess 1.6 mmol/L (-2.0-3.0) 06/27/17 19:55 ABG Hemoglobin 11.4 g/dL (11.7-17.4) L 06/27/17 19:55 ABG Carboxyhemoglobin 3.5 % (0.5-1.5) H 06/27/17 19:55 POC ABG HHb (Measured) 3.7 % (0.0-5.0) 06/27/17 19:55 ABG Methemoglobin 1.4 % (0.0-3.0) 06/27/17 19:55 James Test Pos 06/27/17 19:55 ABG Potassium 3.8 mmol/L (3.6-5.2) 06/26/17 20:50 A-a O2 Difference 113.0 mm/Hg 06/27/17 19:55 Respiratory Index 1.7 06/27/17 19:55 Hgb O2 Saturation 91.5 % (95.0-98.0) L 06/27/17 19:55 Sodium 135.0 mmol/l (132-148) 06/26/17 20:50 Chloride 110.0 mmol/L (98-107) H 06/26/17 20:50 Glucose 275 mg/dl (65-105) H 06/26/17 20:50 Lactate 1.6 mmol/L (0.7-2.1) 06/26/17 20:50 Liter Flow 3.0 06/27/17 19:55 FiO2 32.0 % 06/27/17 19:55 Sodium 140 mmol/L (132-148) 07/03/17 04:43 Potassium 3.6 mmol/L (3.6-5.2) 07/03/17 04:43 Chloride 104 mmol/L (98-107) 07/03/17 04:43 Carbon Dioxide 29 mmol/L (22-30) 07/03/17 04:43 Anion Gap 11 (10-20) 07/03/17 04:43 BUN 12 mg/dL (7-17) 07/03/17 04:43 Creatinine 0.6 MG/DL (0.7-1.2) L 07/03/17 04:43 Est GFR ( Amer) > 60 07/03/17 04:43 Est GFR (Non-Af Amer) > 60 07/03/17 04:43 POC Glucose (mg/dL) 376 mg/dL (65-110) H 07/03/17 16:18 Random Glucose 65 mg/dL (65-105) 07/03/17 04:43 Hemoglobin A1c 7.2 % (4.2-6.5) H D 07/02/17 11:30 Calcium 8.8 mg/dl (8.6-10.4) 07/03/17 04:43 Total Bilirubin 1.3 mg/dL (0.2-1.3) 07/03/17 04:43 Direct Bilirubin 0.3 mg/dL (0.0-0.4) 06/28/17 06:23 AST 58 U/L (14-36) H 07/03/17 04:43 ALT 50 U/L (9-52) 07/03/17 04:43 Alkaline Phosphatase 77 U/L (38-126) 07/03/17 04:43 Liver Fibrosis Score 0.93 06/28/17 12:41 Liver Fibrosis Interp See note 06/28/17 12:41 Liver Fibrosis Comment See note 06/28/17 12:41 Liver Fibrosis Stage F4 06/28/17 12:41 Necroinflammator Score 0.25 06/28/17 12:41 Necroinflam Score Cmmt See note 06/28/17 12:41 Necroinflammator Grade A0-a1 06/28/17 12:41 Ammonia 69 umol/L (9-33) H D 06/30/17 08:17 C-React Prot High Sens 13.81 mg/L (1.00-3.00) H 06/30/17 08:17 NT-Pro-B Natriuret Pep 280 pg/mL (0-900) 06/26/17 20:22 Total Protein 6.8 g/dL (6.3-8.3) 07/03/17 04:43 Albumin 2.7 g/dL (3.5-5.0) L 07/03/17 04:43 Globulin 4.1 gm/dL (2.2-3.9) H 07/03/17 04:43 Albumin/Globulin Ratio 0.7 (1.0-2.1) L 07/03/17 04:43 [id number] 361 mg/dL (106-279) H 06/28/17 12:41 Triglycerides 76 mg/dL (0-149) D 07/02/17 11:30 Cholesterol 122 mg/dL (0-199) 07/02/17 11:30 LDL Cholesterol Direct 42 mg/dL (0-129) 07/02/17 11:30 HDL Cholesterol 59 mg/dL (30-70) 07/02/17 11:30 Apolipoprotein A-1 152 mg/dL (101-198) 06/28/17 12:41 Lipase 99 U/L (23-300) 06/26/17 20:22 Alpha Fetoprotein 4.6 ng/mL (0.0-7.5) 06/28/17 12:41 Arterial Blood Potassium 3.8 mmol/L (3.6-5.2) 06/26/17 20:50 Urine Color Yellow (YELLOW) 06/26/17 20:41 Urine Clarity Clear (Clear) 06/26/17 20:41 Urine pH 6.0 (5.0-8.0) 06/26/17 20:41 Ur Specific [place] 1.017 (1.003-1.030) 06/26/17 20:41 Urine Protein 2+ mg/dL (NEGATIVE) H 06/26/17 20:41 Urine Glucose (UA) 3+ mg/dL (Normal) H 06/26/17 20:41 Urine Ketones Negative mg/dL (NEGATIVE) 06/26/17 20:41 Urine Blood 3+ (NEGATIVE) H 06/26/17 20:41 Urine Nitrate Negative (NEGATIVE) 06/26/17 20:41 Urine Bilirubin Negative (NEGATIVE) 06/26/17 20:41 Urine Urobilinogen 4.0 mg/dL (0.2-1.0) H 06/26/17 20:41 Ur Leukocyte Esterase Neg [place]/uL (Negative) 06/26/17 20:41 Urine WBC (Auto) 7 /hpf (0-5) H 06/26/17 20:41 Urine RBC (Auto) 17 /hpf (0-3) H 06/26/17 20:41 Ur Squamous Epith Cells 3 /hpf (0-5) 06/26/17 20:41 Urine Bacteria Occ (<OCC) H 06/26/17 20:41 Vancomycin Trough 7.5 ug/mL (5.0-10.0) 07/03/17 04:43 Serum Ketones Negative (NEGATIVE) 06/26/17 20:22 Ref Lab Specimen ID [id number] 06/28/17 12:41 - Hospital Course Hospital Course: 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 At the same time, pt was having episodes of intractable coughing unrelieved by any type of pulmonary intervention such as neb treatments of a beta-agonist. > Suspecting more than what seemed obvious, pt was given a trial of a promotility agent and an H2 domo to decrease gastric secretions given twice a day starting the night of admission. In the AM, pt noted to be coughing less, and able to speak in long phrases whereas on admission, a few words was all it took to trigger pt's cough. Pt was also seen by podiatry for the festering foot , and with concurrent ID consult, IV abx were started on the pt. 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 A modified barium swallow did not reveal any pathology. > Pt's wound and blood cultures grew Enterococcus faecalis and Micrococcus spp. , which were sensitive to Zosyn and vancomycin. Pt's condition continued to improve, and pt was subsequently discharged home on the 2 IV abx for another 3 weeks. Pt's condition remained stable throughout the whole admission, and no adverse events were noted. Discharge Exam - Head Exam Head Exam: NORMAL INSPECTION, NORMOCEPHALIC - Eye Exam Eye Exam: Normal appearance Pupil Exam: NORMAL ACCOMODATION - ENT Exam ENT Exam: Normal Exam - Neck Exam Neck exam: Normal Inspection - Respiratory Exam Respiratory Exam: Clear to PA & Lateral, NORMAL BREATHING PATTERN Additional comments: + occ cough when talking with prolonged sentences - Cardiovascular Exam Cardiovascular Exam: REGULAR RHYTHM - GI/Abdominal Exam GI & Abdominal Exam: Normal Bowel Sounds - Rectal Exam Rectal Exam: Deferred - Extremities Exam Extremities exam: normal inspection - Back Exam Back exam: NORMAL INSPECTION - Neurological Exam Neurological exam: Normal Gait, Oriented x3, Reflexes Normal - Psychiatric Exam Psychiatric exam: Normal Affect, Normal Mood - Skin Skin Exam: Dry, Intact, Normal Color, Warm Discharge Plan - Discharge Medications Prescriptions: Famotidine [Pepcid] 40 mg PO Q12 #180 tab Metoclopramide [Reglan] 10 mg PO Q12 #180 tab - Follow Up Plan Condition: FAIR Disposition: HOME/ ROUTINE Patient education suggested?: Yes Instructions: Famotidine (By mouth), Metoclopramide (By mouth), Cellulitis (DC) , Diabetic Foot Care (DC), Diabetic Foot Care (GEN), Diabetes Mellitus Type 2 in Adults (GEN), Meal Planning with Diabetes Exchanges (DC), Myelodysplastic Syndromes (DC), Myelodysplastic Syndromes (GEN), Diabetic Foot Ulcers (DC), Abscess (GEN) Additional Instructions: see additional instructions in Pt's discharge papers > f/u in 2 days at 1 pm, 07/05/[address] Franz
== END 2017-07-03 20:05 | disposition home or self-care (01) | DRG 638 ==
LOC: C.ER 18:29 → C.9E 22:23 → C.3T 23:16
PROVIDERS: ADMIT Family Medicine; ATTEND Family Medicine
PROC: 02HV33Z Insertion of Infusion Device into Superior Vena Cava, Percutaneous Approach (ICD-10-PCS; principal; 2017-07-02)
DX: E11.628 Type 2 diabetes mellitus with other skin complications (principal); L03.115 Cellulitis of right lower limb; M86.9 Osteomyelitis, unspecified; M86.671 Other chronic osteomyelitis, right ankle and foot; D69.6 Thrombocytopenia, unspecified; K31.1 Adult hypertrophic pyloric stenosis; E11.621 Type 2 diabetes mellitus with foot ulcer; E11.65 Type 2 diabetes mellitus with hyperglycemia; L97.519 Non-pressure chronic ulcer of other part of right foot with unspecified severity; K74.60 Unspecified cirrhosis of liver; Z79.4 Long term (current) use of insulin; K21.9 Gastro-esophageal reflux disease without esophagitis; I73.9 Peripheral vascular disease, unspecified; H91.90 Unspecified hearing loss, unspecified ear; K75.81 Nonalcoholic steatohepatitis (NASH)

== ENCOUNTER 2018-11-06 11:15 | Inpatient (IN) | payer MEDICARE, BC ==
[2018-11-06 11:16] VITALS: BMI 31.2
[2018-11-06] MEDS ORDERED: Sodium Chloride 0.9% 1,000 ML ONE (12:05)
--- NOTE | 2018-11-06 12:16 | C.PDOC ---
History Of Present Illness 58 y/o female presents to the ED complaining of left hip pain s/p fall. Patient states that yesterday her legs felt weak and gave out, causing her to fall. She now complains of pain to the left hip. Patient also reports PMHx of liver cirrhosis, diabetes. States she has had increasing fluid retention. Patient follows with GI specialist Dr. Willis. Reports someone is going to tap her abdomen. Otherwise patient denies any LOC, syncope, unilateral weakness, numbness, head trauma, or other injury. She denies nay nausea, vomiting, or change in bowel movements. Time Seen by Provider: 11/06/18 11:43 Chief Complaint (Nursing): Abdominal Pain History Per: Patient History/Exam Limitations: no limitations Onset/Duration Of Symptoms: Days (x 2) Current Symptoms Are (Timing): Still Present Associated Symptoms: Other (Fluid retention) Past Medical History Reviewed: Historical Data, Nursing Documentation, Vital Signs Vital Signs: Last Vital Signs Temp 97.4 F L 11/06/18 11:21 Pulse 88 11/06/18 11:21 Resp 18 11/06/18 11:21 BP 163/71 H 11/06/18 11:21 Pulse Ox 98 11/06/18 11:21 - Medical History PMH: Anxiety, Arthritis (hx of r ankle surgery; hx of hammertoe repair), Depression, Diabetes Denies: Atrial Fibrillation, Cardia Arrhythmia, Chronic Kidney Disease Other PMH: Liver Cirrhosis Surgical History: Cholecystectomy - [facility] Procedures FOOT JOINT STRUCT DIVIS (07/31/14) INSERTION OF INFUSION DEV INTO SUP VENA CAVA, PERC APPROACH (06/26/17) NONEXCIS DEBRID OF WOUND, INFECT, OR BURN (03/09/14) OPEN REDUCT-INT FIX TOE (07/31/14) REPAIR OF HAMMER TOE (07/31/14) Family History: States: Unknown Family Hx - Social History Hx Tobacco Use: No Hx Alcohol Use: No Hx Substance Use: No - Immunization History Hx Tetanus Toxoid Vaccination: No Hx Influenza Vaccination: No Hx Pneumococcal Vaccination: No Review Of Systems Except As Marked, All Systems Reviewed And Found Negative. Constitutional: Positive for: Weakness (generalized). Negative for: Fever, Ch ills Cardiovascular: Negative for: Chest Pain Respiratory: Negative for: Shortness of Breath Gastrointestinal: Positive for: Abdominal Pain (and distension). Negative for: Nausea, Vomiting Musculoskeletal: Positive for: Leg Pain Skin: Negative for: Rash, Lesions Neurological: Negative for: Weakness, Numbness, Incoordination, Headache, Dizziness Physical Exam - Physical Exam Appears: Non-toxic, No Acute Distress Skin: Warm, Dry Head: Atraumatic, Normacephalic Eye(s): bilateral: Normal Inspection, PERRL, EOMI Oral Mucosa: Moist Neck: Normal ROM Chest: Symmetrical Cardiovascular: Rhythm Regular, No Murmur Respiratory: Normal Breath Sounds, No Rales, No Rhonchi, No Wheezing Gastrointestinal/Abdominal: Soft, No Tenderness, Distention (+), Other (Obese a bdomen) Extremity: Tenderness (to the left hip), Capillary Refill (< 2 sec), No Deformity, No Swelling (or ecchymosis to hip) Pulses: Left Dorsalis Pedis: Normal, Right Dorsalis Pedis: Normal Neurological/Psych: Oriented x3, Normal Cranial Nerves, Normal Motor, Normal Sensation ED Course And Treatment - Laboratory Results Result Diagrams: 11/06/18 12:51 11/06/18 12:51 Lab Interpretation: Abnormal ECG: Interpreted By Me ECG Rhythm: Sinus Rhythm, R BBB ECG Interpretation: No Acute Changes Rate From EC O2 Sat by Pulse Oximetry: 98 (RA) Pulse Ox Interpretation: Normal - Other Rad CXR X-Ray: Read By Radiologist Interpretation: Accession No. : [id number]. Patient Name / ID : SHANNA DIAZ A / [id number]. Exam Date : 11/06/2018 12:13:28 ( Approved ). Study Comment : Sex / Age : F / 58Y. Creator : María Casillas MD. Dictator : María Casillas MD. Market Research Lead : Drive In Teller : María Casillas MD. Approver2 : Report Date : 11/06/2018 12:43:20. My Comment : . HISTORY: Cough r/o CHF. COMPARISON: Chest x-ray performed 07/02/17. TECHNIQUE: Chest PA and lateral. FINDINGS: Examination limited by habitus and hypoinflation. LUNGS: Small right pleural effusion. Mild pulmonary venous congestion. No definite pneumothorax. CARDIOVASCULAR: Cardiomegaly. No atherosclerotic calcification present. OSSEOUS STRUCTURES: Degenerative changes. VISUALIZED UPPER ABDOMEN: Unremarkable. OTHER FINDINGS: None. IMPRESSION: Cardiomegaly. Small right pleural effusion. Mild pulmonary venous congestion. Hypoinflation. Hip/Pelvis X-Ray X-Ray: Read By Radiologist - CT Scan/US CT abd/pelvis Other Rad Studies (CT/US): Read By Radiologist, Radiology Report Reviewed Progress Note: Treated with IVF NSS Reassessment Condition: Unchanged - Physician Consult Information Physician Contacted: Spencer Starkey Outcome Of Conversation: admit Medical Decision Making Medical Decision Making: Impression: Abdominal Pain, Hip Pain, Hx of liver cirrhosis Plan: - EKG - Labs - Chest x-ray - Left Hip/Pelvis x-ray - CT Abdomen/Pelvis without contrast Disposition Discussed With Dr.: Spencer Starkey Doctor Will See Patient In The: Hospital - Disposition Disposition: HOSPITALIZED Disposition Time: 14:20 Condition: STABLE - POA Present On Arrival: None - Clinical Impression Clinical Impression: Abdominal pain, Ascites - PA / [employer] / Resident Statement MD/DO has reviewed & agrees with the documentation as recorded. - Scribe Statement The provider has reviewed the documentation as recorded by the Scribe Gege Mcdonough All medical record entries made by the Scribe were at my direction and personally dictated by me. I have reviewed the chart and agree that the record accurately reflects my personal performance of the history, physical exam, medical decision making, and the department course for this patient. I have also personally directed, reviewed, and agree with the discharge instructions and disposition. Decision To Admit - Pt Status Changed To: Hospital Disposition Of: Inpatient - Admit Certification Admit to Inpatient:: After my assessment, the patient will require hospitalization for at least two midnights. This is because of the severity of symptoms shown, intensity of services needed, and/or the medical risk in this patient being treated as an outpatient. - InPatient: Physician Admission Certification:: Ascites - . Bed Request Type: Regular Admitting Physician: Spencer Starkey Patient Diagnosis: Abdominal pain, Ascites
--- NOTE | 2018-11-06 12:47 | RAD ---
HISTORY: Cough r/o CHF COMPARISON: Chest x-ray performed 07/02/17 TECHNIQUE: Chest PA and lateral FINDINGS: Examination limited by habitus and hypoinflation. LUNGS: Small right pleural effusion. Mild pulmonary venous congestion. No definite pneumothorax. CARDIOVASCULAR: Cardiomegaly. No atherosclerotic calcification present. OSSEOUS STRUCTURES: Degenerative changes. VISUALIZED UPPER ABDOMEN: Unremarkable. OTHER FINDINGS: None. IMPRESSION: Cardiomegaly. Small right pleural effusion. Mild pulmonary venous congestion. Hypoinflation.
[2018-11-06 13:05] LABS: BASO % 0.2 % (0.0-2.0); EOS # 0.1 K/uL (0.0-0.7); HEMOGLOBIN 10.1 g/dL (11.0-16.0); LYMPH # 0.5 K/uL (1.0-4.3); LYMPH % 11.7 % (20.0-40.0); MEAN CORPUSCULAR HEMOGLOBIN 32.9 pg (27.0-31.0); MEAN CORPUSCULAR HGB CONC 34.9 g/dL (33.0-37.0); MEAN PLATELET VOLUME 8.4 fL (7.2-11.7); MONO # 0.3 K/uL (0.0-0.8); MONO % 7.2 % (0.0-10.0); NEUT # 3.6 K/uL (1.8-7.0); NEUT % 78.9 % (50.0-75.0); RBC 3.06 Mil/uL (3.80-5.20); RED CELL DISTRIBUTION WIDTH 15.7 % (11.5-14.5); WHITE BLOOD COUNT 4.6 K/uL (4.8-10.8)
[2018-11-06 13:07] LABS: MEAN CELL VOLUME 94.1 fL (81.0-99.0)
[2018-11-06 13:22] LABS: ALB/GLOB RATIO 0.8 (1.0-2.1); ALBUMIN 2.8 g/dL (3.5-5.0); ALT/SGPT 23 U/L (9-52); AST/SGOT 62 U/L (14-36); BLOOD UREA NITROGEN 19 mg/dL (7-17); CALCIUM 8.3 mg/dl (8.6-10.4); GFR NON-AFRICAN AMERICAN > 60; LIPASE 124 U/L (23-300)
[2018-11-06 13:29] LABS: B-TYPE NATRIURETIC PEPTIDE 460 pg/mL (0-900)
[2018-11-06 13:36] LABS: INR 1.4; PROTHROMBIN TIME 14.8 SECONDS (9.7-12.2)
--- NOTE | 2018-11-06 13:59 | CT ---
Date of service: 11/06/2018 PROCEDURE: CT Abdomen and Pelvis without intravenous contrast HISTORY: Pain COMPARISON: Noncontrast abdomen pelvis CT 08/13/2011. TECHNIQUE: Helical CT of the abdomen and pelvis was performed without oral or intravenous contrast as per referring physician request. Coronal and sagittal reformats were generated.. Contrast dose: None Radiation dose: Total exam DLP = 1077.42 mGy-cm. This CT exam was performed using one or more of the following dose reduction techniques: Automated exposure control, adjustment of the mA and/or kV according to patient size, and/or use of iterative reconstruction technique. FINDINGS: LOWER THORAX: Minimal right and trace left pleural effusions are identified. LIVER: A nodular cirrhotic liver is again identified but is now shrunken. No gross mass appreciable. No prominent intrahepatic biliary dilatation identified. Various esophageal, gastrohepatic ligament and splenorenal varices are suggested though poorly defined given lack of intravenous contrast. GALLBLADDER AND BILE DUCTS: Prior cholecystectomy again evident. PANCREAS: Limited peripancreatic reaction is difficult to completely exclude with the overall pattern suspicious for pancreatitis. Further clinical correlation advised. No choledocholithiasis appreciable. No prominent CBD dilatation evident in this noncontrast exam. SPLEEN: Splenomegaly identified to 16.1 cm, not dramatically changed in the interval. No gross mass associated. ADRENALS: Unremarkable. No mass. KIDNEYS AND URETERS: Unremarkable. No hydronephrosis. No solid mass. VASCULATURE: Nonaneurysmal abdominal aortic calcific atherosclerotic changes are identified. BOWEL: Unremarkable. No obstruction. No gross mural thickening. Moderate fecal loading is seen throughout the colon. APPENDIX: Appendicitis is seen adjacent to ascites and is difficult to evaluate due to lack of contrast and the presence of ascites and anasarca. Appendicitis is not favored. Clinically correlate nevertheless. PERITONEUM: Moderate ascites and streaky/ground-glass mesenteric opacity is identified. Extra abdominal fatty reaction is appreciate as well and the pattern suggests anasarca. LYMPH NODES: No grossly enlarged lymph nodes. BLADDER: [id number] urinary bladder distension. Bladder wall limited evaluation. REPRODUCTIVE: Unremarkable. BONES: No acute fracture. OTHER FINDINGS: None. IMPRESSION: Cirrhotic shrunken liver is appreciated with extensive varices appreciated. Stable splenomegaly evident. Pancreatitis is questioned. Moderate abdominal ascites evident. Prior cholecystectomy. No choledocholithiasis. Further clinical correlation recommended. Lack of contrast agents limits overall evaluation.
--- NOTE | 2018-11-06 15:06 | RAD ---
PROCEDURE: Radiographs of the pelvis and bilateral hips HISTORY: Pain COMPARISON: None. FINDINGS: BONES: The pelvic ring is intact. Bone alignment and mineralization are normal. There is no acute displaced fracture or bone destruction. JOINTS: There is mild degenerative osteoarthrosis in the hip joints with mild reduced joint spaces and marginal spurring. There is also mild degenerative osteoarthrosis in the sacroiliac joints and mild osteitis pubis. SOFT TISSUES: Normal. OTHER FINDINGS: None. IMPRESSION: No acute fracture or dislocation. Mild degenerative osteoarthrosis in the hip joints.
[2018-11-06] MEDS: (Novolin R) Insulin Human Regular 100 units/ml vial SC SCH (21:51)
[2018-11-06] MEDS: (Novolog Mix 70/30) Insulin Aspart/Insulin Aspar 100 units/ml SC SCH (22:57)
[2018-11-07] MEDS: (Novolin R) Insulin Human Regular 100 units/ml vial SC SCH ×4 (08:14→21:51)
--- NOTE | 2018-11-07 12:28 | CARD ---
APPROVED REPORT Date of service: 11/06/2018 EKG Measurement Heart [id number] <Conclusion> Normal sinus rhythm Right bundle branch block Abnormal ECG
--- NOTE | 2018-11-07 14:30 | CP.PCM.CON ---
History of Present Illness - History of Present Illness History of Present Illness: This is a 58 year old woman with new onset ascites. Patient has a four-year history of cirrhosis due to steatohepatitis. 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 She has been evaluated by the transplant center at [facility] but has not been seen there recently. Baseline blood test results from 10/23/2018 showed HGB 10.1, TBILI 2.2, AST 49, ALT 26, ALKP 96, PT 12.3, INR 1.2. The calculated MELD score was 11. A CT scan 10/25/2018 showed cirrhotic liver, splenomegaly, large ascites and gastresophageal varices. Arrangements were made to stop potassium supplements, start spironolactone and schedule paracentesis. Patient presented to the ER 11/06/2018 with pain in the left hip following a fall and abdominal The CT scan was repeated without contrast and showed a cirrhotic liver, extensive varices, moderate ascites, and splenomegaly. Patient was admitted for further evaluation and treatment. EGD was performed 04/10/2017 and showed esophageal candidiasis and non-erosive gastritis. Colonoscopy was performed on the same day and was normal except for internal hemorrhoids. At present, patient denies having abominal pain, nausea, vomiting, heartburn, difficulty swallowing, constipation, and rectal bleeding. Review of Systems - Review of Systems All systems: reviewed and no additional remarkable complaints except - Constitutional Constitutional: Weakness. absent: Chills, Fever - Cardiovascular Cardiovascular: absent: Chest Pain - Respiratory Respiratory: absent: Dyspnea - Gastrointestinal Gastrointestinal: Abdominal Pain. absent: Constipation, Diarrhea, Dysphagia, Heartburn, Hematochezia, Nausea, Vomiting - Integumentary Integumentary: absent: Rash - Neurological Neurological: absent: Dizziness, Numbness Past Patient History - Past Medical History & Family History Past Medical History?: Yes - Past Social History Smoking Status: Never Smoked - CARDIAC Hx Atrial Fibrillation: No Hx Cardia Arrhythmia: No - PULMONARY Hx Respiratory Disorders: No - NEUROLOGICAL Hx Neurological Disorder: No Other/Comment: Hepatic Encephalopathy. Neuropathy - HEENT Hx HEENT Problems: No - RENAL Hx Chronic Kidney Disease: No - ENDOCRINE/METABOLIC Hx Diabetes Mellitus Type 2: Yes - HEMATOLOGICAL/ONCOLOGICAL Hx Cirrhosis: Yes (liver) - INTEGUMENTARY Hx Dermatological Problems: No Other/Comment: chicken pox - MUSCULOSKELETAL/RHEUMATOLOGICAL Hx Arthritis: Yes (hx of r ankle surgery; hx of hammertoe repair) - GASTROINTESTINAL Hx Gastroesophageal Reflux: Yes Other/Comment: Ascites - GENITOURINARY/GYNECOLOGICAL Hx Genitourinary Disorders: No - PSYCHIATRIC Hx Anxiety: Yes Hx Depression: Yes Hx Substance Use: No - SURGICAL HISTORY Hx Cholecystectomy: Yes Other/Comment: polyp removal - ANESTHESIA Hx Anesthesia: Yes Hx Anesthesia Reactions: No Hx Malignant Hyperthermia: No Has any member of the family had a problem w/ anesthesia?: No Meds Allergies/Adverse Reactions: Allergies Allergy/AdvReac Type Severity Reaction Status Date / Time seafood Allergy RASH Uncoded 06/26/17 18:42 - Medications Medications: Current Medications Famotidine (Pepcid) 20 mg PO BID [facility] Last Admin: 11/07/18 10:43 Dose: 20 mg Gabapentin (Neurontin) 100 mg PO [facility] Last Admin: 11/06/18 22:00 Dose: 100 mg Insulin Aspart (Novolog Mix 70/30 (70/30 Units/Ml)) 30 units SC [facility] Last Admin: 11/06/18 22:57 Dose: 30 units Insulin Human Regular (Novolin R) 0 unit SC [facility]; Protocol Last Admin: 11/07/18 12:47 Dose: 3 units Losartan Potassium (Cozaar) 25 mg PO DAILY [facility] Last Admin: 11/07/18 10:43 Dose: 25 mg Pneumococcal Polyvalent Vaccine (Pneumovax 23 Vaccine) 0.5 ml IM .ONCE ONE Stop: 11/09/18 10:01 Rifaximin (Xifaxan) 550 mg PO BID [facility]; Protocol Last Admin: 11/07/18 10:43 Dose: 550 mg Sertraline HCl (Zoloft) 100 mg PO [facility] Last Admin: 11/06/18 21:50 Dose: 100 mg Spironolactone (Aldactone) 50 mg PO DAILY [facility] Last Admin: 11/07/18 10:43 Dose: 50 mg Tramadol HCl (Ultram) 50 mg PO Q8 PRN PRN Reason: pain Last Admin: 11/06/18 22:00 Dose: 50 mg Physical Exam - Constitutional Appears: Other Additional comments: Slow speech - Head Exam Head Exam: ATRAUMATIC, NORMOCEPHALIC - Eye Exam Eye Exam: EOMI, PERRL - Neck Exam Neck exam: Negative for: Lymphadenopathy, Thyromegaly - Respiratory Exam Respiratory Exam: NORMAL BREATHING PATTERN. absent: Rales, Rhonchi, Wheezes - Cardiovascular Exam Cardiovascular Exam: REGULAR RHYTHM, +S1, +S2. absent: Gallop, Rubs, Systolic Murmur - GI/Abdominal Exam GI & Abdominal Exam: Distended, Normal Bowel Sounds, Soft. absent: Mass, Organomegaly, Tenderness - Rectal Exam Rectal Exam: Deferred - Extremities Exam Extremities exam: Positive for: pedal edema Additional comments: 2+ edema bilaterally Results - Vital Signs Recent Vital Signs: Last Vital Signs Temp 98.3 F 11/07/18 08:22 Pulse 82 11/07/18 11:38 Resp 20 11/07/18 08:22 BP 150/74 11/07/18 08:22 Pulse Ox 88 L 11/07/18 11:38 - Labs Result Diagrams: 11/06/18 12:51 11/06/18 12:51 Labs: Laboratory Results - last 24 hr 11/06/18 11/06/18 11/07/18 16:35 21:08 07:33 POC Glucose (mg/dL) 70 150 H 122 H 11/07/18 11:59 POC Glucose (mg/dL) 218 H Assessment & Plan (1) Ascites Assessment and Plan: Patient has a history of cirrhosis secondary to steatohepatitis. Cirrhosis has been complicated by splenomegaly, hepatic encephalopatye, esophageal varices, and now ascites. In spite of the development of these complications, the MELD score remains low at 11. Will use spironolactone and furosemide together. She is currently on propanolol and Cozaar as well. If one of the latter mediations can be discontinued, it would simplify the management of her BP and electrolytes. Paracentesis will be scheduled for tomorrow. Status: Acute
[2018-11-07] MEDS ORDERED: Phytonadione 10 mg/ml Inj (Adult) SC STA (14:48)
--- NOTE | 2018-11-07 21:39 | CP.PCM.HP ---
Present on Admission - Present on Admission Any Indicators Present on Admission: Yes History of Uncontrolled Diabetes: Yes Past Patient History - Past Medical History & Family History Past Medical History?: Yes - Past Social History Smoking Status: Never Smoked - CARDIAC Hx Atrial Fibrillation: No Hx Cardia Arrhythmia: No - PULMONARY Hx Respiratory Disorders: No - NEUROLOGICAL Hx Neurological Disorder: No Other/Comment: Hepatic Encephalopathy. Neuropathy - HEENT Hx HEENT Problems: No - RENAL Hx Chronic Kidney Disease: No - ENDOCRINE/METABOLIC Hx Diabetes Mellitus Type 2: Yes - HEMATOLOGICAL/ONCOLOGICAL Hx Cirrhosis: Yes (liver) - INTEGUMENTARY Hx Dermatological Problems: No Other/Comment: chicken pox - MUSCULOSKELETAL/RHEUMATOLOGICAL Hx Arthritis: Yes (hx of r ankle surgery; hx of hammertoe repair) - GASTROINTESTINAL Hx Gastroesophageal Reflux: Yes Other/Comment: Ascites - GENITOURINARY/GYNECOLOGICAL Hx Genitourinary Disorders: No - PSYCHIATRIC Hx Anxiety: Yes Hx Depression: Yes Hx Substance Use: No - SURGICAL HISTORY Hx Cholecystectomy: Yes Other/Comment: polyp removal - ANESTHESIA Hx Anesthesia: Yes Hx Anesthesia Reactions: No Hx Malignant Hyperthermia: No Has any member of the family had a problem w/ anesthesia?: No Meds Allergies/Adverse Reactions: Allergies Allergy/AdvReac Type Severity Reaction Status Date / Time seafood Allergy RASH Uncoded 06/26/17 18:42 Results - Vital Signs Recent Vital Signs: Last Vital Signs Temp 98.7 F 11/07/18 16:13 Pulse 80 11/07/18 16:13 Resp 20 11/07/18 16:13 BP 145/66 11/07/18 16:13 Pulse Ox 95 11/07/18 16:13 - Labs Result Diagrams: 11/06/18 12:51 11/06/18 12:51 Labs: Laboratory Results - last 24 hr 11/07/18 11/07/18 11/07/18 07:33 11:59 17:14 POC Glucose (mg/dL) 122 H 218 H 169 H Ur Random Sodium 11/07/18 11/07/18 19:32 21:18 POC Glucose (mg/dL) 225 H Ur Random Sodium 106
--- NOTE | 2018-11-07 21:39 | CP.PCM.PN ---
Subjective - Date & Time of Evaluation Date of Evaluation: 11/07/18 Time of Evaluation: 09:59 - Subjective Subjective: dictated Objective - Vital Signs/Intake and Output Vital Signs (last 24 hours): Temp Pulse Resp BP Pulse Ox 98.7 F 80 20 145/66 95 11/07/18 16:13 11/07/18 16:13 11/07/18 16:13 11/07/18 16:13 11/07/18 16:13 Intake and Output: 11/07/18 11/08/18 18:59 06:59 Intake Total 450 Balance 450 - Medications Medications: Current Medications Famotidine (Pepcid) 20 mg PO BID [facility] Last Admin: 11/07/18 17:49 Dose: 20 mg Furosemide (Lasix) 20 mg PO DAILY [facility] Last Admin: 11/07/18 15:34 Dose: 20 mg Gabapentin (Neurontin) 100 mg PO [facility] Last Admin: 11/06/18 22:00 Dose: 100 mg Insulin Aspart (Novolog Mix 70/30 (70/30 Units/Ml)) 30 units SC [facility] Last Admin: 11/06/18 22:57 Dose: 30 units Insulin Human Regular (Novolin R) 0 unit SC [facility]; Protocol Last Admin: 11/07/18 17:48 Dose: 2 units Losartan Potassium (Cozaar) 25 mg PO DAILY [facility] Last Admin: 11/07/18 10:43 Dose: 25 mg Pneumococcal Polyvalent Vaccine (Pneumovax 23 Vaccine) 0.5 ml IM .ONCE ONE Stop: 11/09/18 10:01 Rifaximin (Xifaxan) 550 mg PO BID [facility]; Protocol Last Admin: 11/07/18 17:49 Dose: 550 mg Sertraline HCl (Zoloft) 100 mg PO [facility] Last Admin: 11/06/18 21:50 Dose: 100 mg Spironolactone (Aldactone) 50 mg PO DAILY [facility] Last Admin: 11/07/18 10:43 Dose: 50 mg Tramadol HCl (Ultram) 50 mg PO Q8 PRN PRN Reason: pain Last Admin: 11/06/18 22:00 Dose: 50 mg - Labs Labs: 11/06/18 12:51 11/06/18 12:51 PT 14.8 SECONDS (9.7-12.2) H 11/06/18 13:32 INR 1.4 11/06/18 13:32
[2018-11-07] MEDS: (Novolog Mix 70/30) Insulin Aspart/Insulin Aspar 100 units/ml SC SCH (21:51)
--- NOTE | 2018-11-08 02:37 | PN ---
DATE: 11/07/2018 SUBJECTIVE: The patient, Yarelis Larios still has left hip pain. She has been seen by GI. No fever. No chills. No nausea or vomiting or diarrhea. She denies any cough. PHYSICAL EXAMINATION: VITAL SIGNS: Blood pressure 145/66, pulse 88, respiratory rate 20, and temperature 98.7. LUNGS: Clear. CARDIOVASCULAR SYSTEM: S1, S2, regular. ABDOMEN: Soft, distended with ascites. ASSESSMENT: 1. Left hip pain. 2. Nonalcoholic fatty steatosis. The patient has cirrhosis. The patient has hypersplenism, prior hepatic encephalopathy and esophageal varices. 3. Type II diabetes. PLAN: Medical management. Physical therapy rehab. Spencer Starkey MD
[2018-11-08 07:17] LABS: INR 1.3; PROTHROMBIN TIME 14.2 SECONDS (9.7-12.2)
[2018-11-08 07:22] LABS: BASO % 0.2 % (0.0-2.0); EOS # 0.1 K/uL (0.0-0.7); EOS % 2.4 % (0.0-4.0); HEMOGLOBIN 9.8 g/dL (11.0-16.0); LYMPH # 0.6 K/uL (1.0-4.3); LYMPH % 11.3 % (20.0-40.0); MEAN CELL VOLUME 92.6 fL (81.0-99.0); MEAN CORPUSCULAR HEMOGLOBIN 33.4 pg (27.0-31.0); MONO # 0.4 K/uL (0.0-0.8); MONO % 7.5 % (0.0-10.0); NEUT % 78.6 % (50.0-75.0); NRBC % 0.1 % (0.0-2.0); RBC 2.93 Mil/uL (3.80-5.20); RED CELL DISTRIBUTION WIDTH 15.5 % (11.5-14.5); WHITE BLOOD COUNT 5.1 K/uL (4.8-10.8)
--- NOTE | 2018-11-08 07:48 | CP.PCM.PN ---
Subjective - Date & Time of Evaluation Date of Evaluation: 11/08/18 Time of Evaluation: 07:46 - Subjective Subjective: Patient complains of left hip pain. She denies having abdominal pain, nausea, vomiting. She has not had a bowel movement so far today. Objective - Vital Signs/Intake and Output Vital Signs (last 24 hours): Temp Pulse Resp BP Pulse Ox 98.1 F 71 20 133/64 95 11/08/18 07:00 11/08/18 07:00 11/08/18 07:00 11/08/18 07:00 11/08/18 07:00 Intake and Output: 11/08/18 11/08/18 06:59 18:59 Intake Total 120 Balance 120 - Medications Medications: Current Medications Famotidine (Pepcid) 20 mg PO BID [facility] Last Admin: 11/07/18 17:49 Dose: 20 mg Furosemide (Lasix) 20 mg PO DAILY [facility] Last Admin: 11/07/18 15:34 Dose: 20 mg Gabapentin (Neurontin) 100 mg PO [facility] Last Admin: 11/07/18 21:50 Dose: 100 mg Insulin Aspart (Novolog Mix 70/30 (70/30 Units/Ml)) 30 units SC [facility] Last Admin: 11/07/18 21:51 Dose: 30 units Insulin Human Regular (Novolin R) 0 unit SC [facility]; Protocol Last Admin: 11/07/18 21:51 Dose: Not Given Losartan Potassium (Cozaar) 25 mg PO DAILY [facility] Last Admin: 11/07/18 10:43 Dose: 25 mg Pneumococcal Polyvalent Vaccine (Pneumovax 23 Vaccine) 0.5 ml IM .ONCE ONE Stop: 11/09/18 10:01 Rifaximin (Xifaxan) 550 mg PO BID [facility]; Protocol Last Admin: 11/07/18 17:49 Dose: 550 mg Sertraline HCl (Zoloft) 100 mg PO HS [facility] Last Admin: 11/07/18 21:52 Dose: 100 mg Spironolactone (Aldactone) 50 mg PO DAILY [facility] Last Admin: 11/07/18 10:43 Dose: 50 mg Tramadol HCl (Ultram) 50 mg PO Q8 PRN PRN Reason: pain Last Admin: 11/07/18 22:00 Dose: 50 mg - Labs Labs: 11/08/18 06:53 11/06/18 12:51 PT 14.2 SECONDS (9.7-12.2) H 11/08/18 06:53 INR 1.3 11/08/18 06:53 - Constitutional Appears: No Acute Distress - Head Exam Head Exam: ATRAUMATIC, NORMOCEPHALIC - Eye Exam Eye Exam: EOMI, PERRL - Neck Exam Neck Exam: absent: Lymphadenopathy, Thyromegaly - Respiratory Exam Respiratory Exam: NORMAL BREATHING PATTERN. absent: Rales, Rhonchi, Wheezes - Cardiovascular Exam Cardiovascular Exam: REGULAR RHYTHM, +S1, +S2. absent: Gallop, Rubs, Murmur - GI/Abdominal Exam GI & Abdominal Exam: Distended, Soft, Normal Bowel Sounds. absent: Tenderness, Mass, Organomegaly - Rectal Exam Rectal Exam: Deferred - Extremities Exam Extremities Exam: Pedal Edema. absent: Calf Tenderness Additional comments: 2+ edema, bilateral Assessment and Plan (1) Ascites Assessment & Plan: Urine sodium is elevated at 106. Will continue furosemide and spironolactone. Paracentesis has been ordered for today. Status: Acute
[2018-11-08] MEDS: (Novolin R) Insulin Human Regular 100 units/ml vial SC SCH ×4 (07:51→21:46)
[2018-11-08 07:53] LABS: ALB/GLOB RATIO 0.7 (1.0-2.1); ALBUMIN 2.5 g/dL (3.5-5.0); ALT/SGPT 28 U/L (9-52); AST/SGOT 56 U/L (14-36); BLOOD UREA NITROGEN 18 mg/dL (7-17); GFR NON-AFRICAN AMERICAN > 60
[2018-11-08] MEDS ORDERED: Lidocaine Hydrochloride 5 ML INJ ONE (13:54)
[2018-11-08 14:34] LABS: BODY FLUID TYPE PERITONEAL/ASCITES
--- NOTE | 2018-11-08 14:37 | PCM.SURG1 ---
Surgeon's Initial Post Op Note - Surgeon's Notes Surgeon: [facility] [employer] Assistant: none Type of Anesthesia: Local Pre-Operative Diagnosis: ascites Operative Findings: ascites Post-Operative Diagnosis: ascites Operation Performed: paracentesis Specimen/Specimens Removed: 1200cc of clear pale yellow fluid aspirated Estimated Blood Loss: EBL {In ML}: 1 Date of Surgery/Procedure: 11/08/18 Time of Surgery/Procedure: 14:20
[2018-11-08 15:25] LABS: BF GROSS APPEARANCE SL CLOUDY (CLEAR); BODY FLUID MONO/MACROPHAGE 1 % (0-0); BODY FLUID TOTAL COUNT 100 (0-0)
[2018-11-08] MEDS: Morphine 4 MG/ML VIAL IVP PRN ×2 (17:42→22:06)
--- NOTE | 2018-11-08 21:31 | CP.PCM.PN ---
Subjective - Date & Time of Evaluation Date of Evaluation: 11/08/18 Time of Evaluation: 19:20 - Subjective Subjective: dictated Objective - Vital Signs/Intake and Output Vital Signs (last 24 hours): Temp Pulse Resp BP Pulse Ox 98.1 F 81 20 158/72 H 95 11/08/18 17:00 11/08/18 17:00 11/08/18 17:00 11/08/18 17:00 11/08/18 17:00 - Medications Medications: Current Medications Famotidine (Pepcid) 20 mg PO BID [facility] Last Admin: 11/08/18 17:43 Dose: 20 mg Furosemide (Lasix) 20 mg PO DAILY [facility] Last Admin: 11/08/18 11:05 Dose: 20 mg Gabapentin (Neurontin) 100 mg PO HS [facility] Last Admin: 11/07/18 21:50 Dose: 100 mg Insulin Aspart (Novolog Mix 70/30 (70/30 Units/Ml)) 30 units SC [facility] Last Admin: 11/07/18 21:51 Dose: 30 units Insulin Human Regular (Novolin R) 0 unit SC [facility]; Protocol Last Admin: 11/08/18 17:43 Dose: 3 units Lidocaine (Lidoderm) 1 ea TD DAILY [facility] Losartan Potassium (Cozaar) 25 mg PO DAILY [facility] Last Admin: 11/08/18 11:06 Dose: 25 mg Morphine Sulfate (Morphine) 2 mg IVP Q4 PRN PRN Reason: pain Last Admin: 11/08/18 17:42 Dose: 2 mg Pneumococcal Polyvalent Vaccine (Pneumovax 23 Vaccine) 0.5 ml IM .ONCE ONE Stop: 11/09/18 10:01 Rifaximin (Xifaxan) 550 mg PO BID [facility]; Protocol Last Admin: 11/08/18 17:43 Dose: 550 mg Sertraline HCl (Zoloft) 100 mg PO HS [facility] Last Admin: 11/07/18 21:52 Dose: 100 mg Spironolactone (Aldactone) 50 mg PO DAILY [facility] Last Admin: 11/08/18 11:05 Dose: 50 mg - Labs Labs: 11/08/18 06:53 11/08/18 06:53 PT 14.2 SECONDS (9.7-12.2) H 11/08/18 06:53 INR 1.3 11/08/18 06:53
[2018-11-08] MEDS: (Novolog Mix 70/30) Insulin Aspart/Insulin Aspar 100 units/ml SC SCH (21:49)
--- NOTE | 2018-11-09 01:24 | PN ---
DATE: 11/08/2018 SUBJECTIVE: The patient is complaining of intractable left hip pain. She required morphine. She cannot walk. Her pain is 10/10 and the patient is for orthopedics evaluation. PHYSICAL EXAMINATION: VITAL SIGNS: Blood pressure is 128/72, pulse 81, respiratory rate 20, temperature 98.1. LUNGS: Clear. No rales. No rhonchi. CVS: S1 and S2, regular. ABDOMEN: Soft. Nontender. Bowel sounds are positive. EXTREMITIES: Left hip, decreased range of movement. ASSESSMENT: 1. Left hip pain. 2. Cirrhosis of liver, status post paracentesis of ascites. 3. Hypertension. PLAN: Orthopedics evaluation, physical therapy, Lidoderm patch, morphine sulfate. Monitor patient. Spencer Starkey MD
[2018-11-09] MEDS: (Novolin R) Insulin Human Regular 100 units/ml vial SC SCH ×4 (08:17→22:01)
[2018-11-09] MEDS ORDERED: Pneumococcal 23-Valent Vaccine IM ONE (10:00)
[2018-11-09] MEDS: Lidocaine 5% Patch TD SCH (10:57)
--- NOTE | 2018-11-09 11:08 | CP.PCM.PN ---
Subjective - Date & Time of Evaluation Date of Evaluation: 11/09/18 Time of Evaluation: 11:05 - Subjective Subjective: COVERING DR MUHAMMAD c/o pain in her hip. No abdominal complaints after paracentesis. NO bleeding or melena Fluid studies reviewed with 479 WBCs and 3400RBC in the fluid. Dont see gram stain or culture. Objective - Vital Signs/Intake and Output Vital Signs (last 24 hours): Temp Pulse Resp BP Pulse Ox 97.2 F L 67 20 111/60 95 11/09/18 08:59 11/09/18 08:59 11/09/18 08:59 11/09/18 10:56 11/09/18 08:59 Intake and Output: 11/09/18 11/09/18 06:59 18:59 Intake Total 350 200 Balance 350 200 - Medications Medications: Current Medications Famotidine (Pepcid) 20 mg PO BID [facility] Last Admin: 11/09/18 10:56 Dose: 20 mg Furosemide (Lasix) 20 mg PO DAILY [facility] Last Admin: 11/09/18 10:56 Dose: 20 mg Gabapentin (Neurontin) 100 mg PO HS [facility] Last Admin: 11/08/18 21:46 Dose: 100 mg Insulin Aspart (Novolog Mix 70/30 (70/30 Units/Ml)) 30 units SC HS [facility] Last Admin: 11/08/18 21:49 Dose: 30 units Insulin Human Regular (Novolin R) 0 unit SC [facility]; Protocol Last Admin: 11/09/18 08:17 Dose: Not Given Lidocaine (Lidoderm) 1 ea TD DAILY [facility] Last Admin: 11/09/18 10:57 Dose: 1 ea Losartan Potassium (Cozaar) 25 mg PO DAILY [facility] Last Admin: 11/09/18 10:55 Dose: 25 mg Morphine Sulfate (Morphine) 2 mg IVP Q4 PRN PRN Reason: pain Last Admin: 11/08/18 22:06 Dose: 2 mg Rifaximin (Xifaxan) 550 mg PO BID [facility]; Protocol Last Admin: 11/09/18 10:56 Dose: 550 mg Sertraline HCl (Zoloft) 100 mg PO HS [facility] Last Admin: 11/08/18 21:45 Dose: 100 mg Spironolactone (Aldactone) 50 mg PO DAILY [facility] Last Admin: 11/09/18 10:56 Dose: 50 mg - Labs Labs: 11/08/18 06:53 11/08/18 06:53 PT 14.2 SECONDS (9.7-12.2) H 11/08/18 06:53 INR 1.3 11/08/18 06:53 - Constitutional Appears: No Acute Distress - Eye Exam Eye Exam: EOMI, PERRL - Respiratory Exam Respiratory Exam: NORMAL BREATHING PATTERN - Cardiovascular Exam Cardiovascular Exam: REGULAR RHYTHM - GI/Abdominal Exam GI & Abdominal Exam: Distended, Soft, Normal Bowel Sounds Additional comments: +ascites - Extremities Exam Extremities Exam: Pedal Edema Assessment and Plan (1) Esophageal varices Status: Chronic (2) Ascites Assessment & Plan: Ascitic fluid with 500 WBCs but only 2% polys, doubt SBP but will await microb iology studies/cultures on the fluid. Consider repeat paracentesis pending results. 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
--- NOTE | 2018-11-09 18:14 | RAD ---
Date of service: 11/09/2018 PROCEDURE: Left Femur Radiographs. HISTORY: pain COMPARISON: None. TECHNIQUE: AP and Lateral Radiographs of the left femur. FINDINGS: FEMUR: Normal. No fracture. SOFT TISSUES: Normal. OTHER FINDINGS: None. IMPRESSION: Unremarkable radiographs of the left femur.
[2018-11-09] MEDS: (Novolog Mix 70/30) Insulin Aspart/Insulin Aspar 100 units/ml SC SCH (22:00)
[2018-11-09] MEDS: Morphine 4 MG/ML VIAL IVP PRN (22:06)
[2018-11-10] MEDS: Morphine 4 MG/ML VIAL IVP PRN ×2 (04:08→21:53)
[2018-11-10] MEDS: (Novolin R) Insulin Human Regular 100 units/ml vial SC SCH ×4 (08:30→21:52)
[2018-11-10] MEDS: Lidocaine 5% Patch TD SCH (10:00)
--- NOTE | 2018-11-10 11:46 | CP.PCM.PN ---
Subjective - Date & Time of Evaluation Date of Evaluation: 11/10/18 Time of Evaluation: 11:43 - Subjective Subjective: COVERING DR MUHAMMAD Still c/o hip pain. Awaiting orthopedic consult. Ascitic fluid gram stain- few polys but no organisms Ascitic fluid culture- no growth Objective - Vital Signs/Intake and Output Vital Signs (last 24 hours): Temp Pulse Resp BP Pulse Ox 98.3 F 71 20 119/66 98 11/10/18 08:17 11/10/18 08:17 11/10/18 08:17 11/10/18 10:00 11/10/18 08:17 Intake and Output: 11/10/18 11/10/18 06:59 18:59 Intake Total 480 120 Balance 480 120 - Medications Medications: Current Medications Famotidine (Pepcid) 20 mg PO BID [facility] Last Admin: 11/10/18 10:00 Dose: 20 mg Furosemide (Lasix) 20 mg PO DAILY [facility] Last Admin: 11/10/18 10:00 Dose: 20 mg Gabapentin (Neurontin) 100 mg PO [facility] Last Admin: 11/09/18 21:59 Dose: 100 mg Insulin Aspart (Novolog Mix 70/30 (70/30 Units/Ml)) 30 units SC [facility] Last Admin: 11/09/18 22:00 Dose: 30 units Insulin Human Regular (Novolin R) 0 unit SC [facility]; Protocol Last Admin: 11/10/18 08:30 Dose: Not Given Lidocaine (Lidoderm) 1 ea TD DAILY [facility] Last Admin: 11/10/18 10:00 Dose: 1 ea Losartan Potassium (Cozaar) 25 mg PO DAILY [facility] Last Admin: 11/10/18 10:00 Dose: 25 mg Morphine Sulfate (Morphine) 2 mg IVP Q4 PRN PRN Reason: pain Last Admin: 11/10/18 04:08 Dose: 2 mg Rifaximin (Xifaxan) 550 mg PO BID [facility]; Protocol Last Admin: 11/10/18 10:00 Dose: 550 mg Sertraline HCl (Zoloft) 100 mg PO HS [facility] Last Admin: 11/09/18 21:59 Dose: 100 mg Spironolactone (Aldactone) 50 mg PO DAILY [facility] Last Admin: 11/10/18 09:59 Dose: 50 mg - Labs Labs: 11/08/18 06:53 11/08/18 06:53 PT 14.2 SECONDS (9.7-12.2) H 11/08/18 06:53 INR 1.3 11/08/18 06:53 - Constitutional Appears: No Acute Distress - Head Exam Head Exam: ATRAUMATIC, NORMOCEPHALIC - Respiratory Exam Respiratory Exam: NORMAL BREATHING PATTERN - Cardiovascular Exam Cardiovascular Exam: REGULAR RHYTHM, +S1 - GI/Abdominal Exam GI & Abdominal Exam: Distended, Soft. absent: Tenderness, Mass, Rebound Additional comments: +Ascites, not tense - Extremities Exam Extremities Exam: Normal Inspection - Neurological Exam Neurological Exam: Alert, Awake, Oriented x3 Additional comments: no asterixis Assessment and Plan (1) Esophageal varices Status: Chronic (2) Ascites Assessment & Plan: No evidence of SBP. Consider repeat paracentesis for cell count prior to discharge. Continue diuretics, daily weights. Status: Acute (3) Liver cirrhosis secondary to PACE (nonalcoholic steatohepatitis) Status: Chronic (4) Hip pain, left Assessment & Plan: r/o avascular necrosis. Xrays showed degenerative changes. Pain appears disproportionate to Xray findings. Orthopedics consult pending per PMD. Status: Acute
--- NOTE | 2018-11-10 18:56 | CP.PCM.PN ---
Subjective - Date & Time of Evaluation Date of Evaluation: 11/09/18 Time of Evaluation: 08:00 - Subjective Subjective: dictated Objective - Vital Signs/Intake and Output Vital Signs (last 24 hours): Temp Pulse Resp BP Pulse Ox 98.0 F 89 20 120/58 L 98 11/10/18 15:00 11/10/18 15:00 11/10/18 15:00 11/10/18 15:00 11/10/18 15:00 Intake and Output: 11/10/18 11/10/18 06:59 18:59 Intake Total 480 520 Balance 480 520 - Medications Medications: Current Medications Famotidine (Pepcid) 20 mg PO BID [facility] Last Admin: 11/10/18 17:32 Dose: 20 mg Furosemide (Lasix) 20 mg PO DAILY [facility] Last Admin: 11/10/18 10:00 Dose: 20 mg Gabapentin (Neurontin) 100 mg PO HS [facility] Last Admin: 11/09/18 21:59 Dose: 100 mg Insulin Aspart (Novolog Mix 70/30 (70/30 Units/Ml)) 30 units SC [facility] Last Admin: 11/09/18 22:00 Dose: 30 units Insulin Human Regular (Novolin R) 0 unit SC [facility]; Protocol Last Admin: 11/10/18 17:33 Dose: 2 units Lidocaine (Lidoderm) 1 ea TD DAILY [facility] Last Admin: 11/10/18 10:00 Dose: 1 ea Losartan Potassium (Cozaar) 25 mg PO DAILY [facility] Last Admin: 11/10/18 10:00 Dose: 25 mg Morphine Sulfate (Morphine) 2 mg IVP Q4 PRN PRN Reason: pain Last Admin: 11/10/18 04:08 Dose: 2 mg Rifaximin (Xifaxan) 550 mg PO BID [facility]; Protocol Last Admin: 11/10/18 17:37 Dose: 550 mg Sertraline HCl (Zoloft) 100 mg PO HS [facility] Last Admin: 11/09/18 21:59 Dose: 100 mg Spironolactone (Aldactone) 50 mg PO DAILY [facility] Last Admin: 11/10/18 09:59 Dose: 50 mg - Labs Labs: 11/08/18 06:53 11/08/18 06:53 PT 14.2 SECONDS (9.7-12.2) H 11/08/18 06:53 INR 1.3 11/08/18 06:53
--- NOTE | 2018-11-10 18:57 | CP.PCM.PN ---
Subjective - Date & Time of Evaluation Date of Evaluation: 11/10/18 Time of Evaluation: 08:00 - Subjective Subjective: dictated Objective - Vital Signs/Intake and Output Vital Signs (last 24 hours): Temp Pulse Resp BP Pulse Ox 98.0 F 89 20 120/58 L 98 11/10/18 15:00 11/10/18 15:00 11/10/18 15:00 11/10/18 15:00 11/10/18 15:00 Intake and Output: 11/10/18 11/10/18 06:59 18:59 Intake Total 480 520 Balance 480 520 - Medications Medications: Current Medications Famotidine (Pepcid) 20 mg PO BID [facility] Last Admin: 11/10/18 17:32 Dose: 20 mg Furosemide (Lasix) 20 mg PO DAILY [facility] Last Admin: 11/10/18 10:00 Dose: 20 mg Gabapentin (Neurontin) 100 mg PO HS [facility] Last Admin: 11/09/18 21:59 Dose: 100 mg Insulin Aspart (Novolog Mix 70/30 (70/30 Units/Ml)) 30 units SC [facility] Last Admin: 11/09/18 22:00 Dose: 30 units Insulin Human Regular (Novolin R) 0 unit SC [facility]; Protocol Last Admin: 11/10/18 17:33 Dose: 2 units Lidocaine (Lidoderm) 1 ea TD DAILY [facility] Last Admin: 11/10/18 10:00 Dose: 1 ea Losartan Potassium (Cozaar) 25 mg PO DAILY [facility] Last Admin: 11/10/18 10:00 Dose: 25 mg Morphine Sulfate (Morphine) 2 mg IVP Q4 PRN PRN Reason: pain Last Admin: 11/10/18 04:08 Dose: 2 mg Rifaximin (Xifaxan) 550 mg PO BID [facility]; Protocol Last Admin: 11/10/18 17:37 Dose: 550 mg Sertraline HCl (Zoloft) 100 mg PO HS [facility] Last Admin: 11/09/18 21:59 Dose: 100 mg Spironolactone (Aldactone) 50 mg PO DAILY [facility] Last Admin: 11/10/18 09:59 Dose: 50 mg - Labs Labs: 11/08/18 06:53 11/08/18 06:53 PT 14.2 SECONDS (9.7-12.2) H 11/08/18 06:53 INR 1.3 11/08/18 06:53
--- NOTE | 2018-11-10 20:33 | US ---
Ultrasound guided paracentesis. Clinical History: Ascites with abdominal pain and distension. Technique: The relative risks and indications for the procedure were explained to the patient and informed written consent obtained. Sonography of the abdomen was performed in a supine position. This revealed a small amount of non-loculated ascites, greatest in the right lower quadrant. A puncture site was selected and the area was prepped and draped in the usual sterile fashion. 1% lidocaine was used to anesthetize the skin and soft tissues. A 5 Czech paracentesis catheter was trocared into the left lower quadrant under real time ultrasound guidance. A permanent image was stored. 1200 cc of harry fluid aspirated. Impression: Ultrasound-guided paracentesis in the left lower quadrant. 1200 cc of harry colored fluid was aspirated.
--- NOTE | 2018-11-10 20:58 | VASCLAB ---
Date of service: 11/07/2018 PROCEDURE: Lower Extremity Venous Duplex Exam. HISTORY: pain left leg PRIORS: None. TECHNIQUE: Bilateral common femoral, femoral, popliteal and posterior tibial, peroneal and great saphenous veins were evaluated. Flow was assessed with color Doppler, compressibility, assessment of phasic flow and augmentation response. Report prepared by Gwyn Damian, BS, RVT FINDINGS: RIGHT: 1. Common Femoral Vein: 1.1. Compressibility - Fully compressible: Thrombus - None : Flow - Phasic: Augmentation -Normal: Reflux - None. 2. Femoral Vein: 2.1. Compressibility - Fully compressible: Thrombus - None : Flow - Phasic: Augmentation -Normal: Reflux - None. 3. Popliteal Vein: 3.1. Compressibility - Fully compressible: Thrombus - None : Flow - Phasic: Augmentation -Normal: Reflux - None. 4. Posterior Tibial Vein: 4.1. Compressibility - Fully compressible: Thrombus - None: Flow - Phasic: Augmentation -Normal: Reflux - None. 5. Peroneal Vein: 5.1. Compressibility - Fully compressible: Thrombus - None: Flow - Phasic: Augmentation -Normal: Reflux - None. 6. Great Saphenous Vein: 6.1. Compressibility - Fully compressible: Thrombus - None: Flow - Phasic: Augmentation - Normal: Reflux - None. LEFT: 1. Common Femoral Vein: 1.1. Compressibility - Fully compressible: Thrombus - None: Flow - Phasic: Augmentation -Normal: Reflux - None. 2. Femoral Vein: 2.1. Compressibility - Fully compressible: Thrombus - None: Flow - Phasic: Augmentation -Normal: Reflux - None. 3. Popliteal Vein: 3.1. Compressibility - Fully compressible: Thrombus - None : Flow - Phasic: Augmentation -Normal: Reflux - None. 4. Posterior Tibial Vein: 4.1. Compressibility - Fully compressible: Thrombus - None: Flow - Phasic: Augmentation -Normal: Reflux - None. 5. Peroneal Vein: 5.1. Compressibility - Fully compressible: Thrombus - None: Flow - Phasic: Augmentation -Normal: Reflux - None. 6. Great Saphenous Vein: 6.1. Compressibility - Fully compressible: Thrombus - None: Flow - Phasic: Augmentation - Normal: Reflux - None. OTHER FINDINGS: Right: None significant. Left: None significant. IMPRESSION: Right: No evidence of deep or superficial vein thrombosis of the right lower extremity. Normal valve function noted of the right side. Left: No evidence of deep or superficial vein thrombosis of the left lower extremity. Normal valve function noted of the left side.
[2018-11-10 21:18] LABS: TOTAL PROTEIN PERITONEAL FLUID <3.0 g/dL
[2018-11-10] MEDS: (Novolog Mix 70/30) Insulin Aspart/Insulin Aspar 100 units/ml SC SCH (21:51)
--- NOTE | 2018-11-10 23:07 | PN ---
DATE: 11/10/2018 SUBJECTIVE: The patient's left femur x-ray is negative. The patient still is in intractable left hip pain. She is seen by Orthopedics. She is afebrile. No shortness of breath. PHYSICAL EXAMINATION: VITAL SIGNS: Blood pressure 120/ , pulse 59, respiratory rate 20, temperature 98. LUNGS: Clear. CARDIOVASCULAR SYSTEM: S1 and S2, regular. ABDOMEN: Soft. ASSESSMENT: 1. Left leg and hip pain. Continue current medications. 2. Hypertension. 3. Cirrhosis of liver. 4. Ascites. PLAN: Continue current medications, include insulin to 36 units at bedtime. Spencer Starkey MD
[2018-11-11 07:12] LABS: ALB/GLOB RATIO 0.8 (1.0-2.1); ALBUMIN 2.4 g/dL (3.5-5.0); ALT/SGPT 29 U/L (9-52); AST/SGOT 52 U/L (14-36); BLOOD UREA NITROGEN 20 mg/dL (7-17); CALCIUM 8.3 mg/dl (8.6-10.4); GFR NON-AFRICAN AMERICAN > 60
[2018-11-11 07:37] LABS: MEAN PLATELET VOLUME 8.3 fL (7.2-11.7); RED CELL DISTRIBUTION WIDTH 15.4 % (11.5-14.5)
[2018-11-11] MEDS: (Novolin R) Insulin Human Regular 100 units/ml vial SC SCH ×4 (07:48→22:07)
[2018-11-11 08:09] LABS: HEMOGLOBIN 10.3 g/dL (11.0-16.0); MEAN CELL VOLUME 92.4 fL (81.0-99.0); MEAN CORPUSCULAR HEMOGLOBIN 33.1 pg (27.0-31.0); MEAN CORPUSCULAR HGB CONC 35.8 g/dL (33.0-37.0); RBC 3.13 Mil/uL (3.80-5.20); WHITE BLOOD COUNT 5.5 K/uL (4.8-10.8)
--- NOTE | 2018-11-11 08:14 | CON ---
DATE: 11/10/2018 CHIEF COMPLAINT: Left hip pain. HISTORY OF PRESENT ILLNESS: A 58-year-old female, who presented to the [facility], status post fall with left hip pain localized over the lateral side of the hip. The patient is able to ambulate. Also she is complaining of history of bilateral neuropathy. PHYSICAL EXAMINATION: LEFT HIP: Tender to palpation over the lateral trochanter and gluteus maximum. No tenderness over the hip groin. The patient can actively raise the hip. Negative logroll. No instability. Full range of motion of the knee. No bony tenderness. There is also burning pain over the left hip radiating down the posterior leg. DIAGNOSTIC DATA: X-rays of the left hip and pelvis was seen and reviewed, showed no fracture or dislocation. ASSESSMENT: Left hip strain, if possible sciatica and radiculopathy. PLAN: I discussed the findings with the patient. I recommended conservative therapy and weightbearing as tolerated and pain control with physical therapy. Raul Dai MD
--- NOTE | 2018-11-11 08:25 | CP.PCM.PN ---
Subjective - Date & Time of Evaluation Date of Evaluation: 11/11/18 Time of Evaluation: 08:22 - Subjective Subjective: Patient continues to complain of left hip pain. She denies having abdominal pain, nausea, vomiting, loss of appetite, constipation. She had one soft bowel movement last night. Objective - Vital Signs/Intake and Output Vital Signs (last 24 hours): Temp Pulse Resp BP Pulse Ox 97 F L 72 18 126/55 L 98 11/11/18 00:00 11/11/18 00:00 11/11/18 00:00 11/11/18 00:00 11/11/18 00:00 Intake and Output: 11/11/18 11/11/18 06:59 18:59 Intake Total 620 Balance 620 - Medications Medications: Current Medications Famotidine (Pepcid) 20 mg PO BID [facility] Last Admin: 11/10/18 17:32 Dose: 20 mg Furosemide (Lasix) 20 mg PO DAILY [facility] Last Admin: 11/10/18 10:00 Dose: 20 mg Gabapentin (Neurontin) 100 mg PO [facility] Last Admin: 11/10/18 21:50 Dose: 100 mg Insulin Aspart (Novolog Mix 70/30 (70/30 Units/Ml)) 36 units SC [facility] Last Admin: 11/10/18 21:51 Dose: 36 u Insulin Human Regular (Novolin R) 0 unit SC [facility]; Protocol Last Admin: 11/11/18 07:48 Dose: Not Given Lidocaine (Lidoderm) 1 ea TD DAILY [facility] Last Admin: 11/10/18 10:00 Dose: 1 ea Losartan Potassium (Cozaar) 25 mg PO DAILY [facility] Last Admin: 11/10/18 10:00 Dose: 25 mg Morphine Sulfate (Morphine) 2 mg IVP Q4 PRN PRN Reason: pain Last Admin: 11/10/18 21:53 Dose: 2 mg Rifaximin (Xifaxan) 550 mg PO BID [facility]; Protocol Last Admin: 11/10/18 17:37 Dose: 550 mg Sertraline HCl (Zoloft) 100 mg PO HS [facility] Last Admin: 11/10/18 21:51 Dose: 100 mg Spironolactone (Aldactone) 50 mg PO DAILY [facility] Last Admin: 11/10/18 09:59 Dose: 50 mg - Labs Labs: 11/11/18 06:43 11/11/18 06:43 PT 14.2 SECONDS (9.7-12.2) H 11/08/18 06:53 INR 1.3 11/08/18 06:53 - Constitutional Appears: No Acute Distress - Head Exam Head Exam: ATRAUMATIC, NORMOCEPHALIC - Eye Exam Eye Exam: EOMI, PERRL - Neck Exam Neck Exam: absent: Lymphadenopathy, Thyromegaly - Respiratory Exam Respiratory Exam: NORMAL BREATHING PATTERN. absent: Rales, Rhonchi, Wheezes - Cardiovascular Exam Cardiovascular Exam: REGULAR RHYTHM, +S1, +S2. absent: Gallop, Rubs, Murmur - GI/Abdominal Exam GI & Abdominal Exam: Soft, Normal Bowel Sounds. absent: Tenderness, Mass, Organomegaly - Rectal Exam Rectal Exam: Deferred - Extremities Exam Extremities Exam: Pedal Edema. absent: Calf Tenderness Additional comments: 1+-2+ edema to mid-solares bilateral Assessment and Plan (1) Ascites Assessment & Plan: Analysis of ascitic fluid showed an insignificant number of neutrophils, althou gh the total cell conut was elevated: WBC 479, 2% PMN, 97% L, 1% M, RBC 3374. The fluid albuimin is pending, and the fluid total protein was reported to be < 3.0. Will follow up on the remaining results from the fluid analysis (cytology, albumin). Repeat urine sodium. Consider repeat paracentesis to look for change in cell count. Status: Acute
[2018-11-11] MEDS: Lidocaine 5% Patch TD SCH (09:33)
--- NOTE | 2018-11-11 12:34 | CP.PCM.PN ---
Subjective - Date & Time of Evaluation Date of Evaluation: 11/11/18 Time of Evaluation: 12:32 - Subjective Subjective: Patient complains of pain in left hip and down side an back of left leg, saying her whole left leg hurts. She says she had a fall, but doesn't remember how she fell. Denies numbness/tingling. Denies change in bowel/bladder. Denies LBP. Review of Systems - Review of Systems All systems: reviewed and no additional remarkable complaints except - Constitutional Additional comments: no fever/chills - Musculoskeletal Musculoskeletal: As Par HPI - Neurological Neurological: As Per HPI - Hematologic/Lymphatic Hematologic: UNREMARKABLE Objective - Vital Signs/Intake and Output Vital Signs (last 24 hours): Temp Pulse Resp BP Pulse Ox 97 F L 72 18 147/55 L 98 11/11/18 00:00 11/11/18 00:00 11/11/18 00:00 11/11/18 09:38 11/11/18 00:00 Intake and Output: 11/11/18 11/11/18 06:59 18:59 Intake Total 620 Balance 620 - Medications Medications: Current Medications Famotidine (Pepcid) 20 mg PO BID [facility] Last Admin: 11/11/18 09:38 Dose: 20 mg Furosemide (Lasix) 20 mg PO DAILY [facility] Last Admin: 11/11/18 09:38 Dose: 20 mg Gabapentin (Neurontin) 100 mg PO HS [facility] Last Admin: 11/10/18 21:50 Dose: 100 mg Insulin Aspart (Novolog Mix 70/30 (70/30 Units/Ml)) 36 units SC HS [facility] Last Admin: 11/10/18 21:51 Dose: 36 u Insulin Human Regular (Novolin R) 0 unit SC [facility]; Protocol Last Admin: 11/11/18 12:03 Dose: 2 units Lidocaine (Lidoderm) 1 ea TD DAILY [facility] Last Admin: 11/11/18 09:33 Dose: 1 ea Losartan Potassium (Cozaar) 25 mg PO DAILY [facility] Last Admin: 11/11/18 09:38 Dose: 25 mg Morphine Sulfate (Morphine) 2 mg IVP Q4 PRN PRN Reason: pain Last Admin: 11/10/18 21:53 Dose: 2 mg Rifaximin (Xifaxan) 550 mg PO BID [facility]; Protocol Last Admin: 11/11/18 09:40 Dose: 550 mg Sertraline HCl (Zoloft) 100 mg PO HS [facility] Last Admin: 11/10/18 21:51 Dose: 100 mg Spironolactone (Aldactone) 50 mg PO DAILY [facility] Last Admin: 11/11/18 09:37 Dose: 50 mg - Labs Labs: 11/11/18 06:43 11/11/18 06:43 PT 14.2 SECONDS (9.7-12.2) H 11/08/18 06:53 INR 1.3 11/08/18 06:53 - Constitutional Appears: Well, No Acute Distress (patient lying in bed supine with her head at foot of bed) - Head Exam Head Exam: ATRAUMATIC - Extremities Exam Additional comments: TTP over greater trochanter, no discoloration noted no pain with hip ROM, traction, log roll - Neurological Exam Neurological Exam: Alert, Awake, Oriented x3 Neuro motor strength exam: Left Lower Extremity: 4 (left great toe ext 5/5, DF 4/5, PF 5/5 knee flex/ext 4+/5), Right Lower Extremity: 5 Additional comments: sensation itnact BLE - Skin Skin Exam: Dry, Intact (poor hygeine to feet, mild peripheral edema BLE), Normal Color, Warm Assessment and Plan (1) Hip pain, left Assessment & Plan: no fracture/dislocation, minimal DJD only ?lumbar radiculopathy, ?sciatica neg SLR will get lumbar spine xrays due to fall VTE proph PT/OT d/w Dr. Dai, agrees with above Status: Acute (2) Greater trochanteric bursitis of left hip Assessment & Plan: mild Status: Acute Radiology Interpretation - Radiology Interpretation #2 Interpretation: Patient Name / ID : SHANNA LOREDO / [id number] Exam Date : 11/06/2018 12:19:35 ( Approved ) Study Comment : Sex / Age : F / 58Y Creator : Annita Bright MD Dictator : Annita Bright MD [employer] Etch Operator : Energy Efficiency Engineer : Annita Bright MD Approver2 : Report Date : 11/06/2018 15:03:06 My Comment : PROCEDURE: Radiographs of the pelvis and bilateral hips HISTORY: Pain COMPARISON: None. FINDINGS: BONES: The pelvic ring is intact. Bone alignment and mineralization are normal. There is no acute displaced fracture or bone destruction. JOINTS: There is mild degenerative osteoarthrosis in the hip joints with mild reduced joint spaces and marginal spurring. There is also mild degenerative osteoarthrosis in the sacroiliac joints and mild osteitis pubis. SOFT TISSUES: Normal. OTHER FINDINGS: None. IMPRESSION: No acute fracture or dislocation. Mild degenerative osteoarthrosis in the hip joints. - Radiology Interpretation #3 Interpretation: atient Name / ID : SHANNA LOREDO / [id number] Exam Date : 11/09/2018 13:09:09 ( Approved ) Study Comment : Sex / Age : F / 58Y Creator : David Ritchie MD Dictator : David Ritchie MD [employer] Et[employer] Operator : Energy Efficiency Engineer : David Ritchie MD Approver2 : Report Date : 11/09/2018 18:08:42 My Comment : Date of service: 11/09/2018 PROCEDURE: Left Femur Radiographs. HISTORY: pain COMPARISON: None. TECHNIQUE: AP and Lateral Radiographs of the left femur. FINDINGS: FEMUR: Normal. No fracture. SOFT TISSUES: Normal. OTHER FINDINGS: None. IMPRESSION: Unremarkable radiographs of the left femur.
--- NOTE | 2018-11-11 13:52 | RAD ---
Date of service: 11/11/2018 PROCEDURE: Radiographs of the Lumbar Spine. HISTORY: fall, gluteal and LLE pain COMPARISON: No prior. FINDINGS: BONES: Normal alignment. No listhesis. No fracture. DISC SPACES: Unremarkable. OTHER FINDINGS: None. IMPRESSION: Unremarkable radiographs of the lumbar spine.
[2018-11-11 15:58] VITALS: RESP 20
--- NOTE | 2018-11-11 21:29 | CP.PCM.PN ---
Subjective - Date & Time of Evaluation Date of Evaluation: 11/11/18 Time of Evaluation: 07:40 - Subjective Subjective: dictated Objective - Vital Signs/Intake and Output Vital Signs (last 24 hours): Temp Pulse Resp BP Pulse Ox 98.1 F 79 20 145/69 96 11/11/18 15:57 11/11/18 15:57 11/11/18 15:57 11/11/18 15:57 11/11/18 15:57 Intake and Output: 11/11/18 11/12/18 18:59 06:59 Intake Total 600 Balance 600 - Medications Medications: Current Medications Famotidine (Pepcid) 20 mg PO BID [facility] Last Admin: 11/11/18 18:11 Dose: 20 mg Furosemide (Lasix) 20 mg PO DAILY [facility] Last Admin: 11/11/18 09:38 Dose: 20 mg Gabapentin (Neurontin) 100 mg PO HS [facility] Last Admin: 11/10/18 21:50 Dose: 100 mg Insulin Aspart (Novolog Mix 70/30 (70/30 Units/Ml)) 36 units SC [facility] Last Admin: 11/10/18 21:51 Dose: 36 u Insulin Human Regular (Novolin R) 0 unit SC [facility]; Protocol Last Admin: 11/11/18 18:11 Dose: 4 units Lidocaine (Lidoderm) 1 ea TD DAILY [facility] Last Admin: 11/11/18 09:33 Dose: 1 ea Losartan Potassium (Cozaar) 25 mg PO DAILY [facility] Last Admin: 11/11/18 09:38 Dose: 25 mg Morphine Sulfate (Morphine) 2 mg IVP Q4 PRN PRN Reason: pain Last Admin: 11/10/18 21:53 Dose: 2 mg Rifaximin (Xifaxan) 550 mg PO BID [facility]; Protocol Last Admin: 11/11/18 18:11 Dose: 550 mg Sertraline HCl (Zoloft) 100 mg PO HS [facility] Last Admin: 11/10/18 21:51 Dose: 100 mg Spironolactone (Aldactone) 50 mg PO DAILY [facility] Last Admin: 11/11/18 09:37 Dose: 50 mg - Labs Labs: 11/11/18 06:43 11/11/18 06:43 PT 14.2 SECONDS (9.7-12.2) H 11/08/18 06:53 INR 1.3 11/08/18 06:53
[2018-11-11] MEDS: (Novolog Mix 70/30) Insulin Aspart/Insulin Aspar 100 units/ml SC SCH (22:06)
[2018-11-12 08:04] VITALS: TEMP 97.9
[2018-11-12 08:18] LABS: BASO % 0.2 % (0.0-2.0); EOS # 0.1 K/uL (0.0-0.7); EOS % 2.2 % (0.0-4.0); HEMOGLOBIN 10.9 g/dL (11.0-16.0); LYMPH # 0.5 K/uL (1.0-4.3); LYMPH % 8.3 % (20.0-40.0); MEAN CELL VOLUME 92.8 fL (81.0-99.0); MEAN CORPUSCULAR HEMOGLOBIN 33.2 pg (27.0-31.0); MEAN CORPUSCULAR HGB CONC 35.8 g/dL (33.0-37.0); MEAN PLATELET VOLUME 7.8 fL (7.2-11.7); MONO # 0.4 K/uL (0.0-0.8); MONO % 7.3 % (0.0-10.0); NEUT # 4.8 K/uL (1.8-7.0); PLATELET COUNT 114 K/uL (130-400); RBC 3.27 Mil/uL (3.80-5.20); RED CELL DISTRIBUTION WIDTH 15.7 % (11.5-14.5); WHITE BLOOD COUNT 5.8 K/uL (4.8-10.8)
[2018-11-12] MEDS: (Novolin R) Insulin Human Regular 100 units/ml vial SC SCH ×2 (08:18→12:38)
[2018-11-12 08:24] LABS: INR 1.4; PROTHROMBIN TIME 15.1 SECONDS (9.7-12.2)
[2018-11-12 08:38] LABS: ALB/GLOB RATIO 0.8 (1.0-2.1); ALBUMIN 2.7 g/dL (3.5-5.0); ALT/SGPT 34 U/L (9-52); AST/SGOT 56 U/L (14-36); BLOOD UREA NITROGEN 18 mg/dL (7-17); CALCIUM 8.8 mg/dl (8.6-10.4); GFR NON-AFRICAN AMERICAN > 60
[2018-11-12 09:09] LABS: ANISOCYTOSIS SLIGHT; EOSINOPHIL 3 % (0-4); LYMPHOCYTE 4 % (20-40); MONOCYTE 3 % (0-10); NEUTROPHIL 90 % (50-75); PLATELET ESTIMATE SLIGHTLY DECREASED (NORMAL); TOTAL CELLS COUNTED 100
--- NOTE | 2018-11-12 09:32 | CP.PCM.PN ---
Subjective - Date & Time of Evaluation Date of Evaluation: 11/12/18 Time of Evaluation: 09:31 - Subjective Subjective: Patient complains of having diarrhea, four times since last night. She denies having nausea, vomiting, abdominal pain, Objective - Vital Signs/Intake and Output Vital Signs (last 24 hours): Temp Pulse Resp BP Pulse Ox 97.9 F 81 20 155/68 H 96 11/12/18 08:03 11/12/18 08:03 11/12/18 08:03 11/12/18 08:03 11/12/18 08:03 Intake and Output: 11/12/18 11/12/18 06:59 18:59 Intake Total 200 Balance 200 - Medications Medications: Current Medications Famotidine (Pepcid) 20 mg PO BID [facility] Last Admin: 11/11/18 18:11 Dose: 20 mg Furosemide (Lasix) 20 mg PO DAILY [facility] Last Admin: 11/11/18 09:38 Dose: 20 mg Gabapentin (Neurontin) 100 mg PO HS [facility] Last Admin: 11/11/18 22:06 Dose: 100 mg Insulin Aspart (Novolog Mix 70/30 (70/30 Units/Ml)) 36 units SC [facility] Last Admin: 11/11/18 22:06 Dose: 36 u Insulin Human Regular (Novolin R) 0 unit SC [facility]; Protocol Last Admin: 11/12/18 08:18 Dose: Not Given Lidocaine (Lidoderm) 1 ea TD DAILY [facility] Last Admin: 11/11/18 09:33 Dose: 1 ea Losartan Potassium (Cozaar) 25 mg PO DAILY [facility] Last Admin: 11/11/18 09:38 Dose: 25 mg Morphine Sulfate (Morphine) 2 mg IVP Q4 PRN PRN Reason: pain Last Admin: 11/10/18 21:53 Dose: 2 mg Rifaximin (Xifaxan) 550 mg PO BID [facility]; Protocol Last Admin: 11/11/18 18:11 Dose: 550 mg Sertraline HCl (Zoloft) 100 mg PO [facility] Last Admin: 11/11/18 22:06 Dose: 100 mg Spironolactone (Aldactone) 50 mg PO DAILY [facility] Last Admin: 11/11/18 09:37 Dose: 50 mg - Labs Labs: 11/12/18 08:12 11/12/18 08:12 PT 15.1 SECONDS (9.7-12.2) H 11/12/18 08:12 INR 1.4 11/12/18 08:12 - Constitutional Appears: No Acute Distress - Head Exam Head Exam: ATRAUMATIC - Eye Exam Eye Exam: EOMI, PERRL - Neck Exam Neck Exam: absent: Lymphadenopathy, Thyromegaly - Respiratory Exam Respiratory Exam: NORMAL BREATHING PATTERN. absent: Rales, Rhonchi, Wheezes - Cardiovascular Exam Cardiovascular Exam: REGULAR RHYTHM, +S1, +S2. absent: Gallop, Rubs, Murmur - GI/Abdominal Exam GI & Abdominal Exam: Soft, Normal Bowel Sounds. absent: Tenderness, Mass, Organomegaly - Rectal Exam Rectal Exam: Deferred - Extremities Exam Extremities Exam: Pedal Edema. absent: Calf Tenderness Assessment and Plan (1) Ascites Assessment & Plan: Patient now complains of diarrhea, and we will check stool for C difficile. Renal function remains stable. Recommend office follow up. Status: Acute
[2018-11-12] MEDS: Lidocaine 5% Patch TD SCH (09:57)
--- NOTE | 2018-11-12 15:30 | CP.PCM.PN ---
Subjective - Date & Time of Evaluation Date of Evaluation: 11/12/18 Time of Evaluation: 13:00 - Subjective Subjective: Patient seen and examined today, states feels better today , denies nay abdominal pain, N/V/D , hip pain improved with pain meidcations No overnight events reported by RN vss and labs - reviewed - stable Objective - Vital Signs/Intake and Output Vital Signs (last 24 hours): Temp Pulse Resp BP Pulse Ox 97.9 F 81 20 161/68 H 96 11/12/18 08:03 11/12/18 08:03 11/12/18 08:03 11/12/18 09:58 11/12/18 08:03 Intake and Output: 11/12/18 11/12/18 06:59 18:59 Intake Total 700 Balance 700 - Medications Medications: Current Medications Famotidine (Pepcid) 20 mg PO BID [facility] Last Admin: 11/12/18 09:58 Dose: 20 mg Furosemide (Lasix) 20 mg PO DAILY [facility] Last Admin: 11/12/18 09:58 Dose: 20 mg Gabapentin (Neurontin) 100 mg PO HS [facility] Last Admin: 11/11/18 22:06 Dose: 100 mg Insulin Aspart (Novolog Mix 70/30 (70/30 Units/Ml)) 36 units SC HS [facility] Last Admin: 11/11/18 22:06 Dose: 36 u Insulin Human Regular (Novolin R) 0 unit SC [facility]; Protocol Last Admin: 11/12/18 12:38 Dose: 4 units Lidocaine (Lidoderm) 1 ea TD DAILY [facility] Last Admin: 11/12/18 09:57 Dose: 1 ea Losartan Potassium (Cozaar) 25 mg PO DAILY [facility] Last Admin: 11/12/18 09:58 Dose: 25 mg Morphine Sulfate (Morphine) 2 mg IVP Q4 PRN PRN Reason: pain Last Admin: 11/10/18 21:53 Dose: 2 mg Rifaximin (Xifaxan) 550 mg PO BID [facility]; Protocol Last Admin: 11/12/18 09:59 Dose: 550 mg Sertraline HCl (Zoloft) 100 mg PO HS [facility] Last Admin: 11/11/18 22:06 Dose: 100 mg Spironolactone (Aldactone) 50 mg PO DAILY [facility] Last Admin: 11/12/18 09:59 Dose: 50 mg - Labs Labs: 11/12/18 08:12 11/12/18 08:12 PT 15.1 SECONDS (9.7-12.2) H 11/12/18 08:12 INR 1.4 11/12/18 08:12 Assessment and Plan - Assessment and Plan (Free Text) Assessment: A/P 58 yr old female with PMHx of liver cirrhosis, diabetes admitted with left hip pain s/p fall at home and ascitis s/p Paracentesis and removed 1200 ml x- ray hip and lumbar spine - negative for fracture D/w Dr. Willis , recommends to repeat paracentesis for cell count prior to discharge and IR consulted , was not able to perform today D/w Dr. Starkey, stable for discharge home today and repeat paracentesis can be done as out patient D/w patient and agrees with plan Patient instructed to F/U Dr. Willis office and Dr. Starkey office in 1 week Prescription given to IR dept and they will contact patient with scheduled time patient c/o hip pain and s/p fall , needs pain medication to control acute pain , we will discharge patient with 5 days of percocet to manage acute pain and lidoderm patch
[2018-11-12 16:40] VITALS: BP 175/69; PULSE 74; O2SAT 95
--- NOTE | 2018-11-12 23:10 | CP.PCM.DIS ---
Provider - Provider Date of Admission: 11/06/18 14:14 Attending physician: Spencer Starkey MD Consults: 11/07/18 00:02 Gastroenterology Consult Routine Comment: Consulting Provider: Nico Willis Consulting Physician: Nico Willis Reason for Consult: cirrhosis 11/08/18 18:17 Orthopedic Consult Routine Comment: Consulting Provider: Julio Cesar Desir Consulting Physician: Julio Cesar Desir Reason for Consult: l hip pain Time Spent in preparation of Discharge (in minutes): 30 Hospital Course - Lab Results Lab Results: Micro Results 11/08/18 14:38 Ascitic Fluid Gram Stain - Final 11/08/18 14:38 Ascitic Fluid Body Fluid Culture - Final No growth. Most Recent Lab Values WBC 5.8 K/uL (4.8-10.8) 11/12/18 08:12 RBC 3.27 Mil/uL (3.80-5.20) L 11/12/18 08:12 Hgb 10.9 g/dL (11.0-16.0) L 11/12/18 08:12 Hct 30.4 % (34.0-47.0) L 11/12/18 08:12 MCV 92.8 fL (81.0-99.0) 11/12/18 08:12 MCH 33.2 pg (27.0-31.0) H 11/12/18 08:12 MCHC 35.8 g/dL (33.0-37.0) 11/12/18 08:12 RDW 15.7 % (11.5-14.5) H 11/12/18 08:12 Plt Count 114 K/uL (130-400) L 11/12/18 08:12 MPV 7.8 fL (7.2-11.7) 11/12/18 08:12 Neut % (Auto) 82.0 % (50.0-75.0) H 11/12/18 08:12 Lymph % (Auto) 8.3 % (20.0-40.0) L 11/12/18 08:12 Woodruff % (Auto) 7.3 % (0.0-10.0) 11/12/18 08:12 Eos % (Auto) 2.2 % (0.0-4.0) 11/12/18 08:12 Baso % (Auto) 0.2 % (0.0-2.0) 11/12/18 08:12 Neut # (Auto) 4.8 K/uL (1.8-7.0) 11/12/18 08:12 Lymph # (Auto) 0.5 K/uL (1.0-4.3) L 11/12/18 08:12 Woodruff # (Auto) 0.4 K/uL (0.0-0.8) 11/12/18 08:12 Eos # (Auto) 0.1 K/uL (0.0-0.7) 11/12/18 08:12 Baso # (Auto) 0.0 K/uL (0.0-0.2) 11/12/18 08:12 Neutrophils % (Manual) 90 % (50-75) H 11/12/18 08:12 Lymphocytes % (Manual) 4 % (20-40) L 11/12/18 08:12 Monocytes % (Manual) 3 % (0-10) 11/12/18 08:12 Eosinophils % (Manual) 3 % (0-4) 11/12/18 08:12 Platelet Estimate Slightly decreased (NORMAL) L 11/12/18 08:12 Anisocytosis (manual) Slight 11/12/18 08:12 PT 15.1 SECONDS (9.7-12.2) H 11/12/18 08:12 INR 1.4 11/12/18 08:12 Sodium 137 mmol/L (132-148) 11/12/18 08:12 Potassium 4.1 mmol/L (3.6-5.2) 11/12/18 08:12 Chloride 106 mmol/L (98-107) 11/12/18 08:12 Carbon Dioxide 30 mmol/L (22-30) 11/12/18 08:12 Anion Gap 5 (10-20) L 11/12/18 08:12 BUN 18 mg/dL (7-17) H 11/12/18 08:12 Creatinine 0.7 mg/dL (0.7-1.2) 11/12/18 08:12 Est GFR ( Amer) > 60 11/12/18 08:12 Est GFR (Non-Af Amer) > 60 11/12/18 08:12 POC Glucose (mg/dL) 255 mg/dL (65-110) H 11/12/18 11:16 Random Glucose 90 mg/dL (65-105) 11/12/18 08:12 Calcium 8.8 mg/dl (8.6-10.4) 11/12/18 08:12 Phosphorus 3.3 mg/dL (2.5-4.5) 11/12/18 08:12 Magnesium 1.6 mg/dL (1.6-2.3) 11/12/18 08:12 Total Bilirubin 2.5 mg/dL (0.2-1.3) H 11/12/18 08:12 AST 56 U/L (14-36) H 11/12/18 08:12 ALT 34 U/L (9-52) 11/12/18 08:12 Alkaline Phosphatase 100 U/L (38-126) 11/12/18 08:12 NT-Pro-B Natriuret Pep 460 pg/mL (0-900) 11/06/18 12:51 Total Protein 6.1 g/dL (6.3-8.3) L 11/12/18 08:12 Albumin 2.7 g/dL (3.5-5.0) L 11/12/18 08:12 Globulin 3.4 gm/dL (2.2-3.9) 11/12/18 08:12 Albumin/Globulin Ratio 0.8 (1.0-2.1) L 11/12/18 08:12 Lipase 124 U/L (23-300) 11/06/18 12:51 Ur Random Sodium 81 mmol/L 11/11/18 10:47 Fluid Source Peritoneal/ascites 11/08/18 14:32 Fluid Appearance Sl cloudy (CLEAR) 11/08/18 14:32 Fluid WBC 479.0 /mm3 (0.0-300.0) H 11/08/18 14:32 Fluid RBC 3374.0 /mm3 (0.0-0.0) H 11/08/18 14:32 Fluid Tot Cell Count 100 (0-0) H 11/08/18 14:32 Fluid Neutrophils 2.0 % (0-0) H 11/08/18 14:32 Fluid Lymphocytes 97.0 % (0-0) H 11/08/18 14:32 Fld Monocyte/Macrophag 1 % (0-0) H 11/08/18 14:32 Fluid Albumin 0.6 g/dL 11/08/18 14:32 Fluid Comment 11/08/18 14:32 Peritoneal Tot Protein <3.0 g/dL 11/08/18 14:32 C. difficile Ag & Toxin Negative (NEGATIVE) 11/12/18 10:58 Discharge Exam - Head Exam Head Exam: ATRAUMATIC Discharge Plan - Discharge Medications Prescriptions: Furosemide [Lasix] 20 mg PO DAILY #30 tab Lidocaine 5% [Lidoderm] 1 ea TD DAILY #15 patch oxyCODONE/Acetaminophen [Percocet 5/325 mg Tab] 1 ea PO Q6 PRN #20 tab PRN Reason: Pain, Severe (8-10) - Follow Up Plan Condition: STABLE Disposition: HOME/ ROUTINE Instructions: Lidocaine (Topical), Acute Abdomen (Belly Pain), Adult (DC), Fluid in the Belly (Ascites) (DC), Furosemide, Oxycodone and Acetaminophen Additional Instructions: Please f/u with Dr. Starkey office in 1 week Please f/u with Dr. Willis office - call and make appointment Please come to [facility] for a repeat paracentesis for cellcount - department will call you and givve you the time and instructions please continue medication as per med Rec. Referrals: Spencer Starkey MD [Staff Provider] - Nico Willis MD [Staff Provider] -
--- NOTE | 2018-11-13 05:52 | DS ---
DISCHARGE DIAGNOSES: 1. Left hip pain. 2. Cirrhosis of liver. 3. Hypertension. 4. Hyperlipidemia. HOSPITAL COURSE: This is a 58-year-old female with history of cirrhosis of liver due to non-alcoholic hepatic steatosis, hypertension, hyperlipidemia and the patient came in with left hip pain, left lower quadrant pain; underwent extensive workup and found to have arthritis of the left hip. The patient was seen by Orthopedics. The patient also underwent paracentesis of the ascites and the patient was seen by GI. The patient is for discharge. Condition upon discharge stable. The patient will be followed up as outpatient. Spencer Starkey MD
== END 2018-11-12 17:08 | disposition home or self-care (01) | DRG 433 ==
LOC: C.ER 11:15 → C.3T 14:14
PROVIDERS: ADMIT Internal Medicine; ATTEND Internal Medicine
PROC: 0W9G3ZX Drainage of Peritoneal Cavity, Percutaneous Approach, Diagnostic (ICD-10-PCS; principal; 2018-11-10)
DX: K74.69 Other cirrhosis of liver (principal); I85.10 Secondary esophageal varices without bleeding; M16.12 Unilateral primary osteoarthritis, left hip; K75.81 Nonalcoholic steatohepatitis (NASH); D73.2 Chronic congestive splenomegaly; E78.5 Hyperlipidemia, unspecified; I10 Essential (primary) hypertension; D73.1 Hypersplenism; E11.9 Type 2 diabetes mellitus without complications; K21.9 Gastro-esophageal reflux disease without esophagitis; M70.62 Trochanteric bursitis, left hip; K64.8 Other hemorrhoids; S76.012A Strain of muscle, fascia and tendon of left hip, initial encounter; W19.XXXA Unspecified fall, initial encounter; G62.9 Polyneuropathy, unspecified; Y92.009 Unspecified place in unspecified non-institutional (private) residence as the place of occurrence of the external cause

== ENCOUNTER → 2018-11-28 | Day surgery (SDC) | payer MEDICARE, BC ==
[2018-11-06 11:16] VITALS: BMI 31.2
--- NOTE | 2018-11-28 11:17 | CP.SDSHP ---
Same Day Surgery H & P - History Proposed Procedure: Paracentesis Pre-Op Diagnosis: Ascites - Allergies Allergies: Allergies seafood Allergy (Uncoded 06/26/17 18:42) RASH - Physical Exam Mental Status: Alert & Oriented x3 Neuro: WNL Heart: WNL Lungs: WNL - Impression Pt. Evaluated Today:Candidate for Anesthesia & Procedure: Yes Short Stay Discharge - Short Stay Discharge Admitting Diagnosis/Reason for Visit: LIVER CIRRHOSIS/ASCITES Disposition: HOME/ ROUTINE
--- NOTE | 2018-11-28 11:46 | PCM.SURG1 ---
Surgeon's Initial Post Op Note - Surgeon's Notes Surgeon: Jaswant Woodyard Operator: None Type of Anesthesia: None Pre-Operative Diagnosis: Ascites Operative Findings: minimal ascites Post-Operative Diagnosis: minimal ascites not suitable for drainage Operation Performed: no paracentesis performed. limited US of the abdomen obtained. d/w Dr Willis Specimen/Specimens Removed: No specimen obtained Estimated Blood Loss: EBL {In ML}: 0 Date of Surgery/Procedure: 11/28/18 Time of Surgery/Procedure: 11:30
--- NOTE | 2018-11-28 13:39 | US ---
Limited abdominal ultrasound History: Liver disease and ascites. Comparison: Comparison is made to ultrasound from 11/08/2018. Technique: Grayscale ultrasound images of the right and left lower quadrants were obtained. Findings: Minimal ascites not amenable for drainage. Impression: Minimal ascites not suitable for safe drainage. This was discussed with the referring physician Dr. Willis. Follow-up ultrasound will be obtained in 2-3 weeks.
== END | disposition home or self-care (01) ==
LOC: C.SPRAD 08:35
PROVIDERS: ATTEND Radiology Vascular & Interventional Radiology
DX: K74.60 Unspecified cirrhosis of liver (principal); R18.8 Other ascites; Z53.8 Procedure and treatment not carried out for other reasons

== ENCOUNTER 2019-01-01 08:19 | Day surgery (SDC) | payer MEDICARE, BC ==
[2019-01-01] MEDS ORDERED: Lidocaine 2% MPF (5 ml) Inj ONE (09:17)
--- NOTE | 2019-01-01 09:48 | CP.SDSHP ---
Same Day Surgery H & P - History Proposed Procedure: Paracentesis Pre-Op Diagnosis: CIrrhosis, ascites - Allergies Allergies: Allergies seafood Allergy (Uncoded 06/26/17 18:42) RASH - Physical Exam Mental Status: Alert & Oriented x3 - Impression Impression: Pt with cirrhosis and ascites. Plan US guided paracentesis. Pt. Evaluated Today:Candidate for Anesthesia & Procedure: No - Date & Time Date: 01/01/19 Time: 09:05 Short Stay Discharge - Short Stay Discharge Admitting Diagnosis/Reason for Visit: DX:NEW ONSET ASCITES Disposition: HOME/ ROUTINE
--- NOTE | 2019-01-01 09:52 | PCM.SURG1 ---
Surgeon's Initial Post Op Note - Surgeon's Notes Surgeon: Tone Hoffman MD Furniture Crater: NONE Type of Anesthesia: Local Pre-Operative Diagnosis: Ascites, cirrhosis Operative Findings: US showed a small amount of ascites Post-Operative Diagnosis: Ascites, cirrhosis Operation Performed: Pt placed in lateral position and US guided paracentesis performed. RUQ was accessed with a bharati catheter. Specimen/Specimens Removed: 2 liters of clear fluid Estimated Blood Loss: EBL {In ML}: 0 Blood Products Given: N/A Drains Used: No Drains Post-Op Condition: Good Date of Surgery/Procedure: 01/01/19 Time of Surgery/Procedure: 09:50
[2019-01-01 11:45] VITALS: BMI 18.8
[2019-01-01 12:07] LABS: BODY FLUID TYPE PERITONEAL/ASCITES
[2019-01-01 12:54] LABS: BF GROSS APPEARANCE SL CLOUDY (CLEAR)
[2019-01-01 12:55] LABS: BODY FLUID MONO/MACROPHAGE 8 % (0-0); BODY FLUID TOTAL COUNT 100 (0-0)
--- NOTE | 2019-01-01 16:09 | US ---
Date of Procedure: 01/01/2019 PROCEDURE: Ultrasound-guided paracentesis, CPT 24114 Medications: 7 cc 1% Lidocaine HISTORY: Ascites, cirrhosis TECHNIQUE: Following informed consent , the patient was placed supine on the stretcher and the site was marked. A limited abdominal ultrasound was performed that showed a small amount of intra-abdominal fluid. Procedural time out was called and the Pt's abdomen was marked and prepped and draped in the usual sterile fashion. Ultrasound-guided large volume paracentesis performed. A total of 2 liters of straw colored fluid was removed without complication. Fluid specimen was sent for culture, sensitivity, cytology and chemistries. IMPRESSION: Ultrasound-guided paracentesis and removal of 2 liters of fluid.
== END 2019-01-01 10:15 | disposition home or self-care (01) ==
LOC: C.SPRAD 08:19
PROVIDERS: ATTEND Radiology Vascular & Interventional Radiology
DX: R18.8 Other ascites (principal); K74.60 Unspecified cirrhosis of liver